=== PATIENT | female | born 1970 | race Two or more races ===

== ENCOUNTER 2020-07-29 10:20 | Emergency (ER) | payer MEDICARE, MEDICAID, SELFPAY ==
--- NOTE | 2020-07-29 10:32 | ED.ABDPAIN ---
HPI - Abdominal Pain General Chief Complaint: Abdominal Pain Time Seen by Provider: 07/29/20 10:32 Source: patient Mode of arrival: ambulatory Limitations: no limitations History of Present Illness MD elicited complaint: abdominal pain and flank pain Pertinent past history: kidney stones Onset (ago): day(s) (3) Pain Consistency: constant Location: R flank Severity: moderate Quality: stabbing Migration to: no migration Exacerbating factors: movement Relieving factors: nothing Associated symptoms: nausea, vomiting and other (urinary frequency) Related Data Previous Rx's Medication Instructions Recorded cyclobenzaprine 10 mg PO TID PRN #14 tab 07/29/20 ondansetron 4 mg PO Q8H PRN #20 tab 07/29/20 Allergies Allergy/AdvReac Type Severity Reaction Status Date / Time aspirin [ASA] Allergy Unknown HIVES Unverified 04/30/20 17:05 soybean [SOYBEAN] Allergy Unknown RASH Unverified 04/30/20 17:05 Aspirin Allergy Unknown hives Uncoded 02/23/12 00:00 aspirin Allergy Unknown hives Uncoded 01/16/12 00:00 Review of Systems Review of Systems Constitutional : No Fever, No Chills ENT/Mouth : No sore throat Eyes: No Eye Pain, No Swelling, No Redness Cardiovascular : No Chest Pain, No SOB Respiratory : No Cough, No Sputum, No Wheezing Gastrointestinal : positive Nausea, no Vomiting, No Diarrhea, positive abdominal pain Genitourinary : no Dysuria, positive urinary frequency, no Hematuria, positive Flank Pain, positive hesitancy Musculoskeletal : No joint pain, No Myalgias Skin : No Skin Lesions, No rash Neuro : No Weakness, No Numbness, No Headache Psych : No Anxiety/Panic, No Depression Heme/Lymph: No Bruising, No Lymphadenopathy Endocrine : No Polyuria, No Polydipsia All other systems reviewed and are negative Physical Exam Vital Signs: Vital Signs: Last Vital Signs Temp 97.6 F 07/29/20 11:24 Pulse 59 07/29/20 13:36 Resp 17 07/29/20 13:36 BP 131/78 07/29/20 13:36 Pulse Ox 96 07/29/20 13:36 Body Mass Index 39.4 Appearance: Alert. Oriented X3. No acute distress. Eyes: Pupils equal, round and reactive to light. ENT: Pharynx normal. Neck: Normal inspection. Neck supple. CVS: Normal heart rate and rhythm. Pulses normal. Respiratory: No respiratory distress. Breath sounds normal. Abdomen: Soft and nontender. Back: R CVA ttp moderate Skin: Skin warm and dry. Normal skin color. Normal skin turgor. Extremities: No lower extremity edema. No calf ttp Neuro: Oriented X 3. No motor deficit. No sensory deficit. Course Course Course Narrative: no acute findings, stable for DC MDM - Abdominal Pain MDM Narrative Medical decision making narrative: 49 yo female with 3 days of flank pain and urinary frequency will need labs, UA, CT scan for renal colic, IV morphine for pain Lab Data Result diagrams: 07/29/20 12:48 07/29/20 12:48 Labs: Lab Results 07/29/20 07/29/20 07/29/20 Range/Units 12:38 12:48 12:48 WBC 8.1 (4.8-10.8) X10*3/uL RBC 4.50 (4.20-5.50) X10*6/uL Hgb 13.8 (12.0-16.0) g/dl Hct 40.8 (37-47) % MCV 90.7 (80-98) fL MCH 30.7 (27.0-33.0) pg MCHC 33.8 (31.0-35.0) g/dl RDW 12.6 (11.0-16.0) % Plt Count 187 (160-400) X10*3/uL MPV 11.2 (9.4-12.3) fL Immature Gran % (Auto) 0.1 (0.0-0.4) % Neut % (Auto) 65.9 (45-73) % Lymph % (Auto) 24.8 (20-40) % Person % (Auto) 6.1 (2-11) % Eos % (Auto) 2.6 (0-4) % Baso % (Auto) 0.5 (0-2) % Lymph # (Auto) 2.0 (1.2-4.9) X10*3/uL Person # (Auto) 0.5 (0.1-1.2) X10*3/uL Eos # (Auto) 0.2 (0.0-0.4) X10*3/uL Baso # (Auto) 0.0 (0.0-0.2) X10*3/uL Abs Immat Gran (auto) 0.01 (0.00-0.03) X10*3/uL Absolute Neuts (auto) 5.3 (2.0-8.3) X10*3/uL Absolute Nucleated RBC 0.000 (0.0-0.012) X10*3/uL Nucleated RBC % (auto) 0.0 (0.0-0.2) /100WBC Hold Blue Top Sodium 139 (135-145) mmol/L Potassium 3.5 (3.3-5.1) mmol/l Chloride 99 (96-108) mmol/L Carbon Dioxide 31 H (22-29) mmol/L Anion Gap 13 (12-20) BUN 15 (9-16) mg/dL Creatinine 0.69 (0.5-1.4) mg/dL Estim Creat Clear Calc 113.5 Estimated GFR > 60 Random Glucose 105 (60-115) mg/dL Calcium 9.1 (8.4-10.2) mg/dL Magnesium 1.8 (1.6-2.6) mg/dL Total Bilirubin 0.3 (0.0-1.0) mg/dL Direct Bilirubin 0.2 (0.0-0.5) mg/dL AST 34 H (5-31) U/L ALT 26 (0-31) U/L Alkaline Phosphatase 88 (39-117) U/L Total Protein 6.6 (6.5-8.0) g/dL Albumin 3.8 (3.5-5.0) g/dL Lipase 32 (8-78) U/L Urine Color YELLOW Urine Appearance HAZY Urine pH 7.0 (5.0-8.0) Ur Specific [place] 1.020 (1.005-1.025) Urine Protein TRACE (NEG-TRACE) MG/DL Urine Glucose (UA) NEG (NEG) MG/DL Urine Ketones 5 (NEG) MG/DL Urine Blood NEG (NEG) Urine Nitrite NEG (NEG) Ur Leukocyte Esterase NEG (NEG) 07/29/20 Range/Units 12:48 WBC (4.8-10.8) X10*3/uL RBC (4.20-5.50) X10*6/uL Hgb (12.0-16.0) g/dl Hct (37-47) % MCV (80-98) fL MCH (27.0-33.0) pg MCHC (31.0-35.0) g/dl RDW (11.0-16.0) % Plt Count (160-400) X10*3/uL MPV (9.4-12.3) fL Immature Gran % (Auto) (0.0-0.4) % Neut % (Auto) (45-73) % Lymph % (Auto) (20-40) % Person % (Auto) (2-11) % Eos % (Auto) (0-4) % Baso % (Auto) (0-2) % Lymph # (Auto) (1.2-4.9) X10*3/uL Person # (Auto) (0.1-1.2) X10*3/uL Eos # (Auto) (0.0-0.4) X10*3/uL Baso # (Auto) (0.0-0.2) X10*3/uL Abs Immat Gran (auto) (0.00-0.03) X10*3/uL Absolute Neuts (auto) (2.0-8.3) X10*3/uL Absolute Nucleated RBC (0.0-0.012) X10*3/uL Nucleated RBC % (auto) (0.0-0.2) /100WBC Hold Blue Top SEE NOTE Sodium (135-145) mmol/L Potassium (3.3-5.1) mmol/l Chloride (96-108) mmol/L Carbon Dioxide (22-29) mmol/L Anion Gap (12-20) BUN (9-16) mg/dL Creatinine (0.5-1.4) mg/dL Estim Creat Clear Calc Estimated GFR Random Glucose (60-115) mg/dL Calcium (8.4-10.2) mg/dL Magnesium (1.6-2.6) mg/dL Total Bilirubin (0.0-1.0) mg/dL Direct Bilirubin (0.0-0.5) mg/dL AST (5-31) U/L ALT (0-31) U/L Alkaline Phosphatase (39-117) U/L Total Protein (6.5-8.0) g/dL Albumin (3.5-5.0) g/dL Lipase (8-78) U/L Urine Color Urine Appearance Urine pH (5.0-8.0) Ur Specific [place] (1.005-1.025) Urine Protein (NEG-TRACE) MG/DL Urine Glucose (UA) (NEG) MG/DL Urine Ketones (NEG) MG/DL Urine Blood (NEG) Urine Nitrite (NEG) Ur Leukocyte Esterase (NEG) Discharge Plan Discharge Clinical Impression: Flank pain Patient Disposition: Home, Self-Care Instructions: Flank Pain (ED) Additional Instructions: return to ED for any worsening symptoms or concerns Prescriptions: New cyclobenzaprine 10 mg tablet 10 mg PO TID PRN (Reason: muscle spasm) Qty: 14 RF: 0 ondansetron 4 mg tablet,disintegrating 4 mg PO Q8H PRN (Reason: nausea and vomiting) Qty: 20 RF: 0 Referrals: Physician,Unknown [Primary Care Provider] - 2 days (if not better) PMFSH Past Medical History Medical History (Updated 07/29/20 @ 13:45 by Gayla Reyna DO) Asthma Kidney stones Surgical History (Updated 07/29/20 @ 10:41 by Gayla Reyna DO) H/O gastric bypass Hx of cholecystectomy Social History Social History (Updated 07/29/20 @ 10:41 by Gayla Reyna DO) Alcohol intake: never Smoking Status: Never smoker Use of substances other than those prescribed or required for medical reasons: No Advance Directives: No Advance Directives Information Provided: Yes
--- NOTE | 2020-07-29 10:33 | CT_ITS ---
EXAMINATION: CT ABDOMEN AND PELVIS WITHOUT CONTRAST CLINICAL INFORMATION: Right flank pain COMPARISON: June 06, 2017 TECHNIQUE: Multidetector volumetric imaging was performed from the superior aspect of the liver through the pubic symphysis. Sagittal and coronal reformatted images were obtained on the technologist's workstation. This CT examination was performed using dose optimization techniques as appropriate, variously including the following: *Automated exposure control *Adjustment of mA and/or kV according to patient size (this includes techniques or standardized protocols for targeted exams where dose is matched to indication/reason for exam; i.e. extremities or head) *Use of iterative reconstruction technique DLP: 981 mGy-cm FINDINGS: LUNG BASES: There is some scarring about the medial aspect of the right lower lobe. No pleural or pericardial effusion. LIVER, GALLBLADDER, AND BILIARY TREE: The liver is normal in size, shape, and attenuation. No focal hepatic lesion or biliary ductal dilatation is present. Status post cholecystectomy. PANCREAS: Unremarkable. SPLEEN: Unremarkable. There is a capsular calcification noted. ADRENAL GLANDS: Unremarkable. KIDNEYS AND URETERS: The kidneys are normal in size, shape, and attenuation. No hydronephrosis, hydroureter, or calculi seen. No perinephric stranding. BLADDER: Unremarkable. GASTROINTESTINAL TRACT: No dilated loops of large or small bowel. No free air or free fluid. Status post previous surgery involving the distal esophagus and gastric fundus. No pericolonic inflammatory change. No evidence of acute diverticulitis. Appendix is visualized and appears unremarkable. ABDOMINAL WALL: There is a midline fat-containing supraumbilical hernia present. LYMPH NODES: No lymphadenopathy appreciated. VASCULAR: No significant calcified plaque identified. No abdominal aortic aneurysm. PELVIC VISCERA: Unremarkable. OSSEOUS STRUCTURES: No acute destructive bony lesions appreciated. CT/CT abdomen pelvis wo con IMPRESSION: No evidence of ileus or obstruction. No evidence of obstructive uropathy. Status post previous gastroesophageal surgery and cholecystectomy.
--- NOTE | 2020-07-29 11:00 | PC.NURSE ---
UPON PT ARRIVAL ED IN COMPUTER DOWNTIME, PLEASE SEE SCANNED DOCUMENTS FOR RELEVANT INFO.
[2020-07-29 11:24] VITALS: BP 151/90; PULSE 70; RESP 16; TEMP 36.4; O2SAT 98; BMI 39.4
[2020-07-29 12:00] VITALS: PULSE 80; RESP 18
[2020-07-29 12:49] VITALS: RESP 18
[2020-07-29] MEDS: ondansetron HCL 4 MG/2 ML VIAL IVPUSH (12:49)
[2020-07-29] MEDS: Morphine Sulfate 4 MG/ML CARTRIDGE IVPUSH (12:49)
[2020-07-29] MEDS: 0.9 % Sodium Chloride 1,000 ML 999 ML IVCONT (12:49)
[2020-07-29 12:58] LABS: MANUAL DIFF FLAG NO
[2020-07-29 13:04] LABS: Basophils Percent Auto 0.5 % (0-2); Eosinophils Absolute Auto 0.2 X10*3/uL (0.0-0.4); Eosinophils Percent Auto 2.6 % (0-4); Hematocrit 40.8 % (37-47); Hemoglobin 13.8 g/dl (12.0-16.0); Imm Gran Abs Auto 0.01 X10*3/uL (0.00-0.03); Imm Gran Pct Auto 0.1 % (0.0-0.4); Lymphocytes Percent Auto 24.8 % (20-40); Mean Corpuscular HGB Conc 33.8 g/dl (31.0-35.0); Mean Corpuscular Hemoglobin 30.7 pg (27.0-33.0); Mean Corpuscular Volume 90.7 fL (80-98); Mean Platelet Volume 11.2 fL (9.4-12.3); Monocytes Absolute Auto 0.5 X10*3/uL (0.1-1.2); Monocytes Percent Auto 6.1 % (2-11); Neutrophils Absolute Auto 5.3 X10*3/uL (2.0-8.3); Neutrophils Percent Auto 65.9 % (45-73); Platelet Count 187 X10*3/uL (160-400); Red Cell Distribution Width 12.6 % (11.0-16.0); White Blood Count 8.1 X10*3/uL (4.8-10.8)
[2020-07-29 13:06] LABS: Glucose Urine UA NEG (NEG); Leukocyte Esterase Urine NEG (NEG); Nitrite Urine NEG (NEG); Urine Blood NEG (NEG); Urine Ketones 5 MG/DL (NEG); Urine Protein TRACE MG/DL (NEG-TRACE)
[2020-07-29 13:09] LABS: Appearance Urine HAZY; Color Urine YELLOW
--- NOTE | 2020-07-29 13:34 | PC.NURSE ---
Local erythema noted after iv med administration. IV to left hand removed and new 22G IV placed to left forearm.
[2020-07-29 13:36] VITALS: BP 131/78; PULSE 59; RESP 17; O2SAT 96
[2020-07-29 13:42] LABS: Alanine Aminotransferase 26 U/L (0-31); Albumin Level 3.8 g/dL (3.5-5.0); Alkaline Phosphatase 88 U/L (39-117); Anion Gap 13 (12-20); Aspartate Amino Transferase 34 U/L (5-31); Bilirubin Direct 0.2 mg/dL (0.0-0.5); Bilirubin Total 0.3 mg/dL (0.0-1.0); Blood Urea Nitrogen 15 mg/dL (9-16); Calcium 9.1 mg/dL (8.4-10.2); Carbon Dioxide 31 mmol/L (22-29); Chloride 99 mmol/L (96-108); Creatinine Clr Calc Pharmacy 113.5; Estimated Glomerular Filt Rate > 60; Glucose Random 105 mg/dL (60-115); Lipase 32 U/L (8-78); Magnesium 1.8 mg/dL (1.6-2.6); Potassium 3.5 mmol/l (3.3-5.1); Sodium 139 mmol/L (135-145); Total Protein 6.6 g/dL (6.5-8.0)
== END 2020-07-29 14:46 | disposition home or self-care (01) ==
PROVIDERS: Emergency Provider Emergency Medicine
DX: R10.9 Unspecified abdominal pain (principal); Z87.442 Personal history of urinary calculi
CPT/HCPCS: 36415; 74176; 80048; 80076; 81003; 83690; 83735; 85025; 96361; 96374; 96375; 99284; J2270; J2405

== ENCOUNTER 2021-05-22 08:02 | Emergency (ER) | payer MEDICARE, MEDICAID, SELFPAY ==
[2021-05-22 08:04] VITALS: BP 136/90; PULSE 88; RESP 18; TEMP 37.4; O2SAT 96; BMI 40.7
[2021-05-22 09:09] LABS: IDNOW Serial# 9DD0AD1C; Strep A Nucleic Acid Negative (Negative)
[2021-05-22 09:14] LABS: COVID-19 Test Negative (Negative)
--- NOTE | 2021-05-22 09:40 | ED_ITS ---
HPI - URI/Sore Throat General Chief Complaint: Upper Respiratory Symptoms Stated Complaint: flu like symptoms Time Seen by Provider: 05/22/21 09:37 History of Present Illness HPI Narrative: Patient is a 50-year-old female presented with coughing congestion upper respiratory symptoms been ongoing for the last 2 days. Positive generalized malaise weakness. Patient had her coronavirus vaccine. Patient denies any history of travel. She is from home. Cough productive of some clearish sputum. Related Data Previous Rx's Medication Instructions Recorded cyclobenzaprine 10 mg tablet 10 mg PO TID PRN #14 tab 07/29/20 ondansetron 4 mg disintegrating 4 mg PO Q8H PRN #20 tab 07/29/20 tablet benzonatate 100 mg capsule 100 mg PO TID PRN 5 Days #20 cap 05/22/21 (Tessalon Perles) ibuprofen 400 mg tablet 400 mg PO Q6H PRN #20 tab 05/22/21 ondansetron HCl 4 mg tablet 4 mg PO Q8H PRN #10 tab 05/22/21 (Zofran) Allergies Allergy/AdvReac Type Severity Reaction Status Date / Time aspirin [ASA] Allergy Unknown HIVES Verified 05/22/21 08:11 soybean [SOYBEAN] Allergy Unknown RASH Verified 05/22/21 08:11 Review of Systems Review of Systems: Positive generalized malaise weakness fever chills coughing congestion upper respiratory symptoms. Decreased p.o. intake All systems reviewed otherwise negative [facility] Past Medical History Attestation statement: The following information was validated with the patient. Medical History Asthma HTN (hypertension) Kidney stones Surgical History H/O gastric bypass Hx of cholecystectomy Social History Social History (Updated 07/29/20 @ 10:41 by Gayla Reyna DO) Alcohol intake: never Smoked in Last 30 Days: No Use of substances other than those prescribed or required for medical reasons: No Advance Directives: No Patient : No Physical Exam Vital Signs: Vital Signs: Last Vital Signs Temp 99.4 F 05/22/21 08:04 Pulse 88 05/22/21 08:04 Resp 18 05/22/21 08:04 BP 136/90 H 05/22/21 08:04 Pulse Ox 96 05/22/21 08:04 Body Mass Index 40.7 MDM - URI/Sore Throat MDM Narrative Medical decision making narrative: Well-appearing no acute distress O2 sats 97% on room air. Patient is lungs are clear. Cover test is negative. Strep test is negative. Will discharge patient. Lab Data Labs: Lab Results 05/22/21 05/22/21 Range/Units 08:52 08:52 COVID-19 (LEE ANN) Negative (Negative) COVID-19 Clin Com See Note S. pyogenes GrpA RUBIN Negative (Negative) Discharge Plan Discharge Clinical Impression: Upper respiratory infection Patient Disposition: Home, Self-Care Instructions: Upper Respiratory Infection (ED) Prescriptions: New ondansetron HCl [Zofran] 4 mg tablet 4 mg PO Q8H PRN (Reason: nausea and vomiting) Qty: 10 RF: 0 benzonatate [Tessalon Perles] 100 mg capsule 100 mg PO TID PRN (Reason: cough) 5 Days Qty: 20 RF: 0 ibuprofen 400 mg tablet 400 mg PO Q6H PRN (Reason: pain) Qty: 20 RF: 0 No Action cyclobenzaprine 10 mg tablet 10 mg PO TID PRN (Reason: muscle spasm) Qty: 14 RF: 0 ondansetron 4 mg tablet,disintegrating 4 mg PO Q8H PRN (Reason: nausea and vomiting) Qty: 20 RF: 0 Referrals: Physician,Unknown J [Primary Care Provider] - 2 days Stand Alone Forms: Work/School Release
== END 2021-05-22 09:50 | disposition home or self-care (01) ==
PROVIDERS: Emergency Provider Emergency Medicine Emergency Medical Services
DX: J06.9 Acute upper respiratory infection, unspecified (principal); R05.9 Cough, unspecified; M79.10 Myalgia, unspecified site; Z20.822 Contact with and (suspected) exposure to COVID-19; Z79.899 Other long term (current) drug therapy
CPT/HCPCS: 36415; 87635; 87651; 99283; 99284

== ENCOUNTER 2021-05-31 16:02 | Emergency (ER) | payer MEDICARE, MEDICAID, SELFPAY ==
--- NOTE | ~2021-05-31 | XR_ITS ---
EXAMINATION: XR CHEST CLINICAL INFORMATION: Cough COMPARISON: 05/11/2018 TECHNIQUE: 2 views of the chest were obtained. FINDINGS: Lungs are clear. No focal consolidation or mass. Normal pulmonary vascularity. No pleural effusion or pneumothorax. Normal heart size. No acute osseous abnormality. XR/XR chest 2V IMPRESSION: No acute pulmonary disease. No significant change from prior study.
--- NOTE | ~2021-05-31 | CT_ITS ---
EXAMINATION: CT ABDOMEN AND PELVIS WITH CONTRAST CLINICAL INFORMATION: RUQ/flank pain, rule out pyelonephritis or prox kidney stone COMPARISON: CT abdomen pelvis 07/29/2020 TECHNIQUE: Multidetector volumetric images were obtained from the superior aspect of the liver through the pubic symphysis following administration 85 mL of Omnipaque 350 intravenous contrast. Sagittal and coronal reformatted images were obtained on the technologist's workstation. Oral contrast: No This CT examination was performed using dose optimization techniques as appropriate, variously including the following: *Automated exposure control *Adjustment of mA and/or kV according to patient size (this includes techniques or standardized protocols for targeted exams where dose is matched to indication/reason for exam; i.e. extremities or head) *Use of iterative reconstruction technique DLP: 720 mGy-cm FINDINGS: LUNG BASES: The visualized lung bases are unremarkable. LIVER, GALLBLADDER, AND BILIARY TREE: The liver is normal in size and shape. Attenuation is decreased suggesting hepatic steatosis. No focal hepatic lesion or biliary ductal dilatation is present. Status post cholecystectomy with clips in the gallbladder fossa. A single clip is present in Morison's pouch. PANCREAS: Unremarkable. SPLEEN: Unremarkable. ADRENAL GLANDS: Unremarkable. KIDNEYS AND URETERS: The kidneys are normal in size, shape, and attenuation. No hydronephrosis, hydroureter, or calculi seen. No perinephric stranding. BLADDER: Unremarkable. GASTROINTESTINAL TRACT: Again seen are postoperative changes involving the distal esophagus and gastric fundus. The small and large bowel are unremarkable. The appendix is unremarkable. ABDOMINAL WALL: There is diastases of the rectus muscles with a supraumbilical ventral hernia containing only fat. LYMPH NODES: Normal. VASCULAR: Unremarkable. PELVIC VISCERA: Status post hysterectomy. OSSEOUS STRUCTURES: Unremarkable. CT/CT abdomen pelvis w con IMPRESSION: Cause for the patient's right flank pain is not found. No CT evidence of pyelonephritis and no renal calculus disease is seen. Other incidental findings as described above, unchanged.
[2021-05-31 16:21] VITALS: BP 107/72; PULSE 73; RESP 18; TEMP 37; O2SAT 99; BMI 35.4
--- NOTE | 2021-05-31 16:21 | ED_ITS ---
HPI - General Adult General Chief complaint: General Medical <Lynne Land NP - Last Filed: 05/31/21 16:23> Stated complaint: abd pain, cough <Lynne Land NP - Last Filed: 05/31/21 16:23> Time Seen by Provider: 05/31/21 16:21 <Lynne Land NP - Last Filed: 05/31/21 16:23> Source: patient <Esther Grullon MD - Last Filed: 05/31/21 22:58> Mode of arrival: ambulatory <Esther Grullon MD - Last Filed: 05/31/21 22:58> History of Present Illness HPI narrative: 50-year-old female with presentation of ongoing cough for which she has previously been treated and does have history of asthma that she states is otherwise controlled at this time and states that she had onset of right upper quadrant discomfort associated with decreased appetite, nausea, vomiting, as well as diarrhea. The pain that she is experiencing the right upper quadrant is radiating into her back and she is status post cholecystectomy. Otherwise she denies any urinary symptoms. <Esther Grullon MD - Last Filed: 05/31/21 22:58> Related Data Home medications: Previous Rx's Medication Instructions Recorded cyclobenzaprine 10 mg tablet 10 mg PO TID PRN #14 tab 07/29/20 ondansetron 4 mg disintegrating 4 mg PO Q8H PRN #20 tab 07/29/20 tablet benzonatate 100 mg capsule 100 mg PO TID PRN 5 Days #20 cap 05/22/21 (Tesbakari Rand) ibuprofen 400 mg tablet 400 mg PO Q6H PRN #20 tab 05/22/21 ondansetron HCl 4 mg tablet 4 mg PO Q8H PRN #10 tab 05/22/21 (Zofran) omeprazole 40 mg capsule,delayed 40 mg PO DAILY 30 Days #30 cap 05/31/21 release <Lynne Land NP - Last Filed: 05/31/21 16:23> Allergies/adverse reactions: Allergies Allergy/AdvReac Type Severity Reaction Status Date / Time aspirin [ASA] Allergy Unknown HIVES Verified 05/22/21 08:11 soybean [SOYBEAN] Allergy Unknown RASH Verified 05/22/21 08:11 <Lynne Land NP - Last Filed: 05/31/21 16:23> Review of Systems Review of Systems: Pertinent positives and negatives As stated in HPI 10 point review of systems is otherwise negative. <Esther Grullon MD - Last Filed: 05/31/21 22:58> PMFSH Past Medical History Source: nursing notes reviewed <Esther Grullon MD - Last Filed: 05/31/21 22:58> Medical History: Medical History Asthma HTN (hypertension) Kidney stones <Lynne Land NP - Last Filed: 05/31/21 16:23> Surgical History: Surgical History H/O gastric bypass Hx of cholecystectomy <Lynne Land NP - Last Filed: 05/31/21 16:23> Social History Social History: Social History Alcohol intake: never Advance Directives: No Advance Directives Information Provided: No <Lynne Land NP - Last Filed: 05/31/21 16:23> Physical Exam Vital Signs: Vital Signs: Last Vital Signs Temp 98.6 F 05/31/21 16:21 Pulse 65 05/31/21 21:54 Resp 16 05/31/21 21:54 BP 125/65 05/31/21 21:54 Pulse Ox 100 05/31/21 21:54 Body Mass Index 35.4 <Lynne Land NP - Last Filed: 05/31/21 16:23> Vital Signs: Last Vital Signs Temp 98.6 F 05/31/21 16:21 Pulse 65 05/31/21 21:54 Resp 16 05/31/21 21:54 BP 125/65 05/31/21 21:54 Pulse Ox 100 05/31/21 21:54 Body Mass Index 35.4 VITAL SIGNS: Reviewed. GENERAL: Well developed, well nourished, in no acute distress. HEAD: Normocephalic/atraumatic EYES: PERRLA, EOMI OROPHARYNX: no oral lesions noted, posterior pharynx clear LUNGS: Normal breath sounds. No adventitious sounds or accessory muscle use. SpO2<99> CARDIOVASCULAR: Regular rate and rhythm without noted murmurs ABDOMEN: Soft, tenderness in right upper quadrant and along flank without rebound, non-distended with bowel sounds, no CVA tenderness SKIN: Inspection of the skin reveals no rashes NEUROLOGIC: Alert and oriented x 4. Strength and sensation to light touch were grossly intact x 4. <Esther Grullon MD - Last Filed: 05/31/21 22:58> Course Course Course Narrative: 1620-This is a rapid medical exam. 50 yo female here with complaints of heavy lifting last night. Woke with abdominal pain/back pain. No nausea, vomiting, diarrhea, urinary symptoms, fevers, chills, Chronic cough >1 week seeking covid test. Will check CXR, covid screen, labs, UA. Deferred additional HPI, ROS and PE to primary provider. <Lynne Land NP - Last Filed: 05/31/21 16:23> Reevaluation(s) Reevaluation #1: 50-year-old female with history and clinical presentation suggestive of gastroenteritis, renal colic, pyelonephritis. Review of all investigations negative for any acute findings and suspect that this may be a gastritis/GERD presentation. Discussed with the patient at bedside and she was otherwise discharged home in stable condition. <Esther Grullon MD - Last Filed: 05/31/21 22:58> Medical Decision Making Lab Data Result diagrams: : 05/31/21 19:50 05/31/21 19:50 <Lynne Land NP - Last Filed: 05/31/21 16:23> Labs: Lab Results 05/31/21 05/31/21 05/31/21 Range/Units 18:10 18:10 19:50 WBC 8.3 (4.8-10.8) X10*3/uL RBC 4.45 (4.20-5.50) X10*6/uL Hgb 13.7 (12.0-16.0) g/dl Hct 38.4 (37-47) % MCV 86.3 (80-98) fL MCH 30.8 (27.0-33.0) pg MCHC 35.7 H (31.0-35.0) g/dl RDW 12.4 (11.0-16.0) % Plt Count 248 D (160-400) X10*3/uL MPV 11.1 (9.4-12.3) fL Immature Gran % (Auto) 0.1 (0.0-0.4) % Neut % (Auto) 55.1 (45-73) % Lymph % (Auto) 32.5 (20-40) % [place] % (Auto) 6.1 (2-11) % Eos % (Auto) 5.5 H (0-4) % Baso % (Auto) 0.7 (0-2) % Lymph # (Auto) 2.7 (1.2-4.9) X10*3/uL [place] # (Auto) 0.5 (0.1-1.2) X10*3/uL Eos # (Auto) 0.5 H (0.0-0.4) X10*3/uL Baso # (Auto) 0.1 (0.0-0.2) X10*3/uL Abs Immat Gran (auto) 0.01 (0.00-0.03) X10*3/uL Absolute Neuts (auto) 4.6 (2.0-8.3) X10*3/uL Absolute Nucleated RBC 0.000 (0.0-0.012) X10*3/uL Nucleated RBC % (auto) 0.0 (0.0-0.2) /100WBC Sodium (135-145) mmol/L Potassium (3.3-5.1) mmol/L Chloride (96-108) mmol/L Carbon Dioxide (22-29) mmol/L Anion Gap (12-20) BUN (9-16) mg/dL Creatinine (0.5-1.4) mg/dL Estim Creat Clear Calc Estimated GFR POC Glucose (60-115) mg/dL Random Glucose (60-115) mg/dL Calcium (8.4-10.2) mg/dL Total Bilirubin (0.0-1.0) mg/dL Direct Bilirubin (0.0-0.5) mg/dL AST (5-31) U/L ALT (0-31) U/L Alkaline Phosphatase (39-117) U/L Total Protein (6.5-8.0) g/dL Albumin (3.5-5.0) g/dL Lipase (8-78) U/L Urine Color YELLOW Urine Appearance CLEAR Urine pH 6.5 (5.0-8.0) Ur Specific [place] 1.015 (1.005-1.025) Urine Protein NEG (NEG-TRACE) MG/DL Urine Glucose (UA) NEG (NEG) MG/DL Urine Ketones NEG (NEG) MG/DL Urine Blood NEG (NEG) Urine Nitrite NEG (NEG) Ur Leukocyte Esterase NEG (NEG) COVID-19 (LEE ANN) Negative (Negative) COVID-19 Clin Com See Note 05/31/21 05/31/21 Range/Units 19:50 19:53 WBC (4.8-10.8) X10*3/uL RBC (4.20-5.50) X10*6/uL Hgb (12.0-16.0) g/dl Hct (37-47) % MCV (80-98) fL MCH (27.0-33.0) pg MCHC (31.0-35.0) g/dl RDW (11.0-16.0) % Plt Count (160-400) X10*3/uL MPV (9.4-12.3) fL Immature Gran % (Auto) (0.0-0.4) % Neut % (Auto) (45-73) % Lymph % (Auto) (20-40) % [place] % (Auto) (2-11) % Eos % (Auto) (0-4) % Baso % (Auto) (0-2) % Lymph # (Auto) (1.2-4.9) X10*3/uL [place] # (Auto) (0.1-1.2) X10*3/uL Eos # (Auto) (0.0-0.4) X10*3/uL Baso # (Auto) (0.0-0.2) X10*3/uL Abs Immat Gran (auto) (0.00-0.03) X10*3/uL Absolute Neuts (auto) (2.0-8.3) X10*3/uL Absolute Nucleated RBC (0.0-0.012) X10*3/uL Nucleated RBC % (auto) (0.0-0.2) /100WBC Sodium 140 (135-145) mmol/L Potassium 3.2 L (3.3-5.1) mmol/L Chloride 102 (96-108) mmol/L Carbon Dioxide 29 (22-29) mmol/L Anion Gap 12 (12-20) BUN 17 H (9-16) mg/dL Creatinine 0.66 (0.5-1.4) mg/dL Estim Creat Clear Calc 106.6 Estimated GFR > 60 POC Glucose 144 H (60-115) mg/dL Random Glucose 147 H (60-115) mg/dL Calcium 10.3 H D (8.4-10.2) mg/dL Total Bilirubin 0.3 (0.0-1.0) mg/dL Direct Bilirubin 0.2 (0.0-0.5) mg/dL AST 37 H (5-31) U/L ALT 42 H (0-31) U/L Alkaline Phosphatase 124 H D (39-117) U/L Total Protein 7.3 (6.5-8.0) g/dL Albumin 4.4 (3.5-5.0) g/dL Lipase 25 (8-78) U/L Urine Color Urine Appearance Urine pH (5.0-8.0) Ur Specific [place] (1.005-1.025) Urine Protein (NEG-TRACE) MG/DL Urine Glucose (UA) (NEG) MG/DL Urine Ketones (NEG) MG/DL Urine Blood (NEG) Urine Nitrite (NEG) Ur Leukocyte Esterase (NEG) COVID-19 (LEE ANN) (Negative) COVID-19 Clin Com <Lynne Land, COMPLIANCE COORDINATOR - Last Filed: 05/31/21 16:23> Lab Results 05/31/21 05/31/21 05/31/21 Range/Units 18:10 18:10 19:50 WBC 8.3 (4.8-10.8) X10*3/uL RBC 4.45 (4.20-5.50) X10*6/uL Hgb 13.7 (12.0-16.0) g/dl Hct 38.4 (37-47) % MCV 86.3 (80-98) fL MCH 30.8 (27.0-33.0) pg MCHC 35.7 H (31.0-35.0) g/dl RDW 12.4 (11.0-16.0) % Plt Count 248 D (160-400) X10*3/uL MPV 11.1 (9.4-12.3) fL Immature Gran % (Auto) 0.1 (0.0-0.4) % Neut % (Auto) 55.1 (45-73) % Lymph % (Auto) 32.5 (20-40) % [place] % (Auto) 6.1 (2-11) % Eos % (Auto) 5.5 H (0-4) % Baso % (Auto) 0.7 (0-2) % Lymph # (Auto) 2.7 (1.2-4.9) X10*3/uL [place] # (Auto) 0.5 (0.1-1.2) X10*3/uL Eos # (Auto) 0.5 H (0.0-0.4) X10*3/uL Baso # (Auto) 0.1 (0.0-0.2) X10*3/uL Abs Immat Gran (auto) 0.01 (0.00-0.03) X10*3/uL Absolute Neuts (auto) 4.6 (2.0-8.3) X10*3/uL Absolute Nucleated RBC 0.000 (0.0-0.012) X10*3/uL Nucleated RBC % (auto) 0.0 (0.0-0.2) /100WBC Sodium (135-145) mmol/L Potassium (3.3-5.1) mmol/L Chloride (96-108) mmol/L Carbon Dioxide (22-29) mmol/L Anion Gap (12-20) BUN (9-16) mg/dL Creatinine (0.5-1.4) mg/dL Estim Creat Clear Calc Estimated GFR POC Glucose (60-115) mg/dL Random Glucose (60-115) mg/dL Calcium (8.4-10.2) mg/dL Total Bilirubin (0.0-1.0) mg/dL Direct Bilirubin (0.0-0.5) mg/dL AST (5-31) U/L ALT (0-31) U/L Alkaline Phosphatase (39-117) U/L Total Protein (6.5-8.0) g/dL Albumin (3.5-5.0) g/dL Lipase (8-78) U/L Urine Color YELLOW Urine Appearance CLEAR Urine pH 6.5 (5.0-8.0) Ur Specific [place] 1.015 (1.005-1.025) Urine Protein NEG (NEG-TRACE) MG/DL Urine Glucose (UA) NEG (NEG) MG/DL Urine Ketones NEG (NEG) MG/DL Urine Blood NEG (NEG) Urine Nitrite NEG (NEG) Ur Leukocyte Esterase NEG (NEG) COVID-19 (LEE ANN) Negative (Negative) COVID-19 Clin Com See Note 05/31/21 05/31/21 Range/Units 19:50 19:53 WBC (4.8-10.8) X10*3/uL RBC (4.20-5.50) X10*6/uL Hgb (12.0-16.0) g/dl Hct (37-47) % MCV (80-98) fL MCH (27.0-33.0) pg MCHC (31.0-35.0) g/dl RDW (11.0-16.0) % Plt Count (160-400) X10*3/uL MPV (9.4-12.3) fL Immature Gran % (Auto) (0.0-0.4) % Neut % (Auto) (45-73) % Lymph % (Auto) (20-40) % [place] % (Auto) (2-11) % Eos % (Auto) (0-4) % Baso % (Auto) (0-2) % Lymph # (Auto) (1.2-4.9) X10*3/uL [place] # (Auto) (0.1-1.2) X10*3/uL Eos # (Auto) (0.0-0.4) X10*3/uL Baso # (Auto) (0.0-0.2) X10*3/uL Abs Immat Gran (auto) (0.00-0.03) X10*3/uL Absolute Neuts (auto) (2.0-8.3) X10*3/uL Absolute Nucleated RBC (0.0-0.012) X10*3/uL Nucleated RBC % (auto) (0.0-0.2) /100WBC Sodium 140 (135-145) mmol/L Potassium 3.2 L (3.3-5.1) mmol/L Chloride 102 (96-108) mmol/L Carbon Dioxide 29 (22-29) mmol/L Anion Gap 12 (12-20) BUN 17 H (9-16) mg/dL Creatinine 0.66 (0.5-1.4) mg/dL Estim Creat Clear Calc 106.6 Estimated GFR > 60 POC Glucose 144 H (60-115) mg/dL Random Glucose 147 H (60-115) mg/dL Calcium 10.3 H D (8.4-10.2) mg/dL Total Bilirubin 0.3 (0.0-1.0) mg/dL Direct Bilirubin 0.2 (0.0-0.5) mg/dL AST 37 H (5-31) U/L ALT 42 H (0-31) U/L Alkaline Phosphatase 124 H D (39-117) U/L Total Protein 7.3 (6.5-8.0) g/dL Albumin 4.4 (3.5-5.0) g/dL Lipase 25 (8-78) U/L Urine Color Urine Appearance Urine pH (5.0-8.0) Ur Specific [place] (1.005-1.025) Urine Protein (NEG-TRACE) MG/DL Urine Glucose (UA) (NEG) MG/DL Urine Ketones (NEG) MG/DL Urine Blood (NEG) Urine Nitrite (NEG) Ur Leukocyte Esterase (NEG) COVID-19 (LEE ANN) (Negative) COVID-19 Clin Com <Esther Grullon MD - Last Filed: 05/31/21 22:58> Discharge Plan Discharge Clinical Impression: Gastritis, GERD (gastroesophageal reflux disease), Hepatic steatosis <Lynne Land NP - Last Filed: 05/31/21 16:23> Patient Disposition: Home, Self-Care <Lynne Land NP - Last Filed: 05/31/21 16:23> Instructions: Gastritis (ED), Diet for Stomach Ulcers and Gastritis (ED), Gastroesophageal Reflux in Infants (ED) <Lynne Land NP - Last Filed: 05/31/21 16:23> Additional Instructions: 1. Recommend limiting use of ibuprofen, Motrin, Aleve, Naprosyn. 2. Increase fluid hydration especially with water. Give been given a prescription to start on an antacid. 3. Follow-up with your primary care provider in the next 1-2 days for re- evaluation further outpatient management. Return to the ER for acute worsening of symptoms. <Lynne Land NP - Last Filed: 05/31/21 16:23> Prescriptions: New omeprazole 40 mg capsule,delayed release(DR/EC) 40 mg PO DAILY 30 Days Qty: 30 RF: 0 No Action cyclobenzaprine 10 mg tablet 10 mg PO TID PRN (Reason: muscle spasm) Qty: 14 RF: 0 ondansetron 4 mg tablet,disintegrating 4 mg PO Q8H PRN (Reason: nausea and vomiting) Qty: 20 RF: 0 ondansetron HCl [Zofran] 4 mg tablet 4 mg PO Q8H PRN (Reason: nausea and vomiting) Qty: 10 RF: 0 benzonatate [Tessalon Perles] 100 mg capsule 100 mg PO TID PRN (Reason: cough) 5 Days Qty: 20 RF: 0 ibuprofen 400 mg tablet 400 mg PO Q6H PRN (Reason: pain) Qty: 20 RF: 0 <Lynne Land NP - Last Filed: 05/31/21 16:23> Referrals: Kianna Serna MD [Primary Care Provider] - 2 days <Lynne Land NP - Last Filed: 05/31/21 16:23>
[2021-05-31 18:33] LABS: Appearance Urine CLEAR; Color Urine YELLOW; Glucose Urine UA NEG (NEG); Leukocyte Esterase Urine NEG (NEG); Nitrite Urine NEG (NEG); PH 6.5 (5.0-8.0); Specific Gravity - Urine 1.015 (1.005-1.025); Urine Blood NEG (NEG); Urine Ketones NEG (NEG); Urine Protein NEG (NEG-TRACE)
[2021-05-31 18:41] LABS: COVID-19 Test Negative (Negative); IDNOW Serial# 08D9AD1C
[2021-05-31 20:00] LABS: MANUAL DIFF FLAG NO
[2021-05-31 20:01] LABS: Glucose, Whole Blood 144 mg/dL (60-115)
[2021-05-31 20:01] LABS: Basophils Absolute Auto 0.1 X10*3/uL (0.0-0.2); Basophils Percent Auto 0.7 % (0-2); Eosinophils Absolute Auto 0.5 X10*3/uL (0.0-0.4); Eosinophils Percent Auto 5.5 % (0-4); Hematocrit 38.4 % (37-47); Hemoglobin 13.7 g/dl (12.0-16.0); Imm Gran Abs Auto 0.01 X10*3/uL (0.00-0.03); Imm Gran Pct Auto 0.1 % (0.0-0.4); Lymphocytes Absolute Auto 2.7 X10*3/uL (1.2-4.9); Lymphocytes Percent Auto 32.5 % (20-40); Mean Corpuscular HGB Conc 35.7 g/dl (31.0-35.0); Mean Corpuscular Hemoglobin 30.8 pg (27.0-33.0); Mean Corpuscular Volume 86.3 fL (80-98); Mean Platelet Volume 11.1 fL (9.4-12.3); Monocytes Absolute Auto 0.5 X10*3/uL (0.1-1.2); Monocytes Percent Auto 6.1 % (2-11); Neutrophils Absolute Auto 4.6 X10*3/uL (2.0-8.3); Neutrophils Percent Auto 55.1 % (45-73); Platelet Count 248 X10*3/uL (160-400); Red Blood Count 4.45 X10*6/uL (4.20-5.50); Red Cell Distribution Width 12.4 % (11.0-16.0); White Blood Count 8.3 X10*3/uL (4.8-10.8)
[2021-05-31 20:18] LABS: Alanine Aminotransferase 42 U/L (0-31); Albumin Level 4.4 g/dL (3.5-5.0); Alkaline Phosphatase 124 U/L (39-117); Anion Gap 12 (12-20); Aspartate Amino Transferase 37 U/L (5-31); Bilirubin Direct 0.2 mg/dL (0.0-0.5); Bilirubin Total 0.3 mg/dL (0.0-1.0); Blood Urea Nitrogen 17 mg/dL (9-16); Calcium 10.3 mg/dL (8.4-10.2); Carbon Dioxide 29 mmol/L (22-29); Chloride 102 mmol/L (96-108); Creatinine Clr Calc Pharmacy 106.6; Estimated Glomerular Filt Rate > 60; Glucose Random 147 mg/dL (60-115); Potassium 3.2 mmol/L (3.3-5.1); Sodium 140 mmol/L (135-145); Total Protein 7.3 g/dL (6.5-8.0)
[2021-05-31] MEDS: 0.9 % Sodium Chloride 1,000 ML 999 ML IV (21:52)
[2021-05-31 21:54] VITALS: BP 125/65; PULSE 65; RESP 16; O2SAT 100
[2021-05-31 22:07] LABS: Lipase 25 U/L (8-78)
[2021-05-31] MEDS: iohexoL 350 MG/ML 100 ML INFUS..BTL IV (22:13)
[2021-05-31] MEDS: Magnesium Hydrox/Alum Hydrox 30 ML ORAL.SUSP PO (23:06)
[2021-05-31] MEDS: Lidocaine HCl Viscous 2 % 15 ML SOLUTION 10 ML MUCOUS MEM (23:06)
[2021-05-31] MEDS: Lidocaine 4 % Patch ADH..PATCH 1 PATCH TRANSDERMA (23:19)
== END 2021-05-31 23:25 | disposition home or self-care (01) ==
PROVIDERS: Nurse Practitioner Family; Emergency Provider Student in an Organized Health Care Education/Training Program; PCP Internal Medicine
DX: R05.9 Cough, unspecified (principal); R10.11 Right upper quadrant pain; K29.00 Acute gastritis without bleeding; K21.9 Gastro-esophageal reflux disease without esophagitis; K76.0 Fatty (change of) liver, not elsewhere classified; Z20.822 Contact with and (suspected) exposure to COVID-19; Z79.899 Other long term (current) drug therapy
CPT/HCPCS: 36415; 71046; 74177; 80048; 80076; 81003; 82947; 83690; 85025; 87635; 96361; 96374; 99284; Q9967

== ENCOUNTER 2021-07-16 09:02 | Emergency (ER) | payer MEDICARE, MEDICAID, SELFPAY ==
--- NOTE | ~2021-07-16 | XR_ITS ---
EXAMINATION: XR CHEST CLINICAL INFORMATION: Cough and fever COMPARISON: None TECHNIQUE: 2 views of the chest were obtained. FINDINGS: No significant abnormality is noted involving the heart, lungs, mediastinum, bony thorax or soft tissues. XR/XR chest 2V IMPRESSION: Unremarkable chest examination.
[2021-07-16 09:24] VITALS: BP 133/83; PULSE 85; RESP 19; TEMP 36.6; O2SAT 99; BMI 38.9
--- NOTE | 2021-07-16 09:49 | ED_ITS ---
HPI - General Adult General Chief complaint: General Medical Stated complaint: nausea headache sore throat cough Time Seen by Provider: 07/16/21 09:49 Source: patient Mode of arrival: ambulatory Limitations: no limitations History of Present Illness HPI narrative: patient sick for 2 days with fever and cough. Onset (ago): day(s) Severity: mild Associated symptoms: cough, fever/chills, malaise and nausea/vomiting Related Data Previous Rx's Medication Instructions Recorded cyclobenzaprine 10 mg tablet 10 mg PO TID PRN #14 tab 07/29/20 ondansetron 4 mg disintegrating 4 mg PO Q8H PRN #20 tab 07/29/20 tablet benzonatate 100 mg capsule 100 mg PO TID PRN 5 Days #20 cap 05/22/21 (Tessalon Perles) ibuprofen 400 mg tablet 400 mg PO Q6H PRN #20 tab 05/22/21 ondansetron HCl 4 mg tablet 4 mg PO Q8H PRN #10 tab 05/22/21 (Zofran) omeprazole 40 mg capsule,delayed 40 mg PO DAILY 30 Days #30 cap 05/31/21 release [id number] 2.5 20 ml PO Q4H PRN #118 ml 07/16/21 mg-5 mg-50 mg/5 mL oral liquid (Robitussin Cough and Cold CF) Allergies Allergy/AdvReac Type Severity Reaction Status Date / Time aspirin [ASA] Allergy Unknown HIVES Verified 05/22/21 08:11 soybean [SOYBEAN] Allergy Unknown RASH Verified 05/22/21 08:11 Review of Systems Constitutional: Constitutional: Reports no additional constitutional complaints Eyes: Eyes: Reports no additional eye complaints ENT: Denies dizziness Cardiovascular: Cardiovascular: Reports no additional cardiovascular complaints Respiratory: Respiratory: Reports as per HPI Gastrointestinal: Gastrointestinal: Reports no additional gastrointestinal complaints Genitourinary: Genitourinary: Reports no additional female genitourinary complaints Musculoskeletal: Musculoskeletal: Reports no additional musculoskeletal complaints Integumentary/Breasts: Skin/Breast: Denies rash Neurologic: Reports system reviewed and no additional complaints, except as documented, Denies dizziness and Denies Sensory deficit (Neuro) Psychiatric: Psychiatric: Denies anxiety [facility] Past Medical History Medical History Asthma HTN (hypertension) Kidney stones Surgical History H/O gastric bypass Hx of cholecystectomy Social History Social History Alcohol intake: former Patient Tobacco Use Status: Never used Tobacco Use of substances other than those prescribed or required for medical reasons: No Advance Directives: Yes Advance Directives Information Provided: Yes Advance Directives on File: No Patient : No Physical Exam Vital Signs: Vital Signs: Last Vital Signs Temp 97.6 F 07/16/21 11:54 Pulse 73 07/16/21 11:54 Resp 14 07/16/21 11:54 BP 114/73 07/16/21 11:54 Pulse Ox 99 07/16/21 11:54 BMI result Body Mass Index 38.9 Const: Other: coughing continually Nutritional Appearance: obese Orientation/consciousness: oriented to person and patient oriented x3 Limitations: no limitations HENMT: Head: Yes normal to inspection Ears: external ears normal General nose exam: Normal external nose present Mouth: Normal oral and palatal mucosa present and oropharynx normal Throat: Yes posterior oropharynx normal Eyes: General: appearance normal, both eyes and all related structures Neck: Other: supple Neck: Yes normal visual inspection Chest: Chest palpation & inspection: normal inspection of the chest Resp: Auscultation: clear to auscultation bilaterally Cardio: Jugular venous distension: no JVD Rate: regular rate Rhythm: regular rhythm Heart sounds: S1 normal heart sound present and S2 normal heart sound present GI: Inspection: Yes normal to inspection Palpation (GI): Soft to palpation, nontender and No hepatosplenomegaly present Auscultation: normal bowel sounds : General: Yes no CVA tenderness Back/Spine/Pelvis: Back: no CVA tenderness Skin: General skin exam: no rashes or lesions noted Neuro: General: oriented to person and patient oriented x3 Cranial nerves: Yes CN's II-XII intact bilaterally Motor exam (neuro): 5/5 motor strength present throughout Sensory Exam: No Sensory deficit (Neuro) Extrem: General: Yes normal to inspection Psych: Appearance: grossly normal Course Reevaluation(s) Reevaluation #1: Patient with negative respiratory panel and normal CXR Time: 12:22 Medical Decision Making Lab Data Labs: Lab Results 07/16/21 07/16/21 Range/Units 09:23 10:06 POC Glucose 191 H (60-115) mg/dL Influenza Type A (PCR) NEGATIVE (Negative) Influenza Type B (PCR) NEGATIVE (Negative) RSV RNA Qual (PCR) NEGATIVE (Negative) SARS-CoV-2 RNA (RT-PCR) NEGATIVE (Negative) Imaging Data Chest x-ray: Attestation: I personally reviewed and interpreted this imaging study as follows: My impression: no infiltrate Discharge Plan Discharge Clinical Impression: Upper respiratory infection Qualifiers: URI type: unspecified URI Qualified Code(s): J06.9 - Acute upper respiratory infection, unspecified Patient Disposition: Home, Self-Care Instructions: Upper Respiratory Infection (ED) Prescriptions: New Robitussin Cough and Cold CF 2.5-5-50 mg/5 mL liquid 20 ml PO Q4H PRN (Reason: cough) Qty: 118 RF: 0 No Action cyclobenzaprine 10 mg tablet 10 mg PO TID PRN (Reason: muscle spasm) Qty: 14 RF: 0 ondansetron 4 mg tablet,disintegrating 4 mg PO Q8H PRN (Reason: nausea and vomiting) Qty: 20 RF: 0 omeprazole 40 mg capsule,delayed release(DR/EC) 40 mg PO DAILY 30 Days Qty: 30 RF: 0 ondansetron HCl [Zofran] 4 mg tablet 4 mg PO Q8H PRN (Reason: nausea and vomiting) Qty: 10 RF: 0 benzonatate [Tessalon Perles] 100 mg capsule 100 mg PO TID PRN (Reason: cough) 5 Days Qty: 20 RF: 0 ibuprofen 400 mg tablet 400 mg PO Q6H PRN (Reason: pain) Qty: 20 RF: 0 Referrals: Physician,Unknown J [Primary Care Provider] - 1 week
[2021-07-16] MEDS: Ketorolac Tromethamine 60 MG/2 ML VIAL IM (10:07)
[2021-07-16] MEDS: guaiFENesin 200 MG/10 ML 10 ML LIQUID PO (10:07)
[2021-07-16 10:14] LABS: Glucose, Whole Blood 191 mg/dL (60-115)
[2021-07-16 11:25] LABS: Influenza A PCR NEGATIVE (Negative); Influenza B PCR NEGATIVE (Negative); Resp Syncy Virus RNA Qual PCR NEGATIVE (Negative); SARS COV2 PCR INHOUSE NEGATIVE (Negative)
[2021-07-16 11:54] VITALS: BP 114/73; PULSE 73; RESP 14; TEMP 36.4; O2SAT 99
[2021-07-16 13:05] VITALS: BP 126/77; PULSE 72; RESP 15; TEMP 36.4; O2SAT 99
== END 2021-07-16 13:40 | disposition home or self-care (01) ==
PROVIDERS: Emergency Provider Emergency Medicine
DX: J06.9 Acute upper respiratory infection, unspecified (principal); I10 Essential (primary) hypertension; Z20.822 Contact with and (suspected) exposure to COVID-19
CPT/HCPCS: 0241U; 36415; 71046; 82947; 96372; 99284; J1885

== ENCOUNTER 2021-12-31 06:37 | Emergency (ER) | payer MEDICARE, MEDICAID, SELFPAY ==
[2021-12-31 07:20] VITALS: BP 120/78; PULSE 61; RESP 18; TEMP 36.1; O2SAT 99; BMI 35.4
[2021-12-31 07:44] LABS: Influenza A Negative (Negative); Influenza B2 Negative (Negative)
[2021-12-31 07:45] LABS: COVID-19 Test Negative (Negative); IDNOW Serial# 16C4AD1C
--- NOTE | 2021-12-31 08:07 | ED.GENADULT ---
HPI - General Adult General Chief complaint: General Medical Stated complaint: flu-like symptoms, wheeze, chest pain x3 days Time Seen by Provider: 12/31/21 08:07 Source: patient Mode of arrival: ambulatory Limitations: no limitations History of Present Illness HPI narrative: Patient is a 51 year old female presenting to the emergency department today with low back pain and feeling generally unwell. Patient states that she fell backwards awhile ago and has been having low back pain ever since. Additionally, she states she has felt generally unwell over the last few days after a coworker tested positive for COVID-19. Patient denies any dizziness, lightheadedness, abdominal pain, nausea, vomiting, fever, blurry vision, double vision, loss of vision, chest pain, difficulty breathing, shortness of breath, night sweats, pain with urination, increased urinary frequency, increased urinary urgency, blood in her urine or stool, syncope or a near syncopal episode, recent trauma or falls, bowel incontinence, bladder incontinence, bowel retention, bladder retention, or any other complaints at this time. Onset (ago): day(s) Location: back Severity: mild Severity scale (1-10): 3 Quality: dull Pain Consistency: constant Relieving factors: none Exacerbating factors: none Associated symptoms: cough Treatments prior to arrival: none Related Data Previous Rx's Medication Instructions Recorded cyclobenzaprine 10 mg tablet 10 mg PO TID PRN #14 tab 07/29/20 ondansetron 4 mg disintegrating 4 mg PO Q8H PRN #20 tab 07/29/20 tablet benzonatate 100 mg capsule 100 mg PO TID PRN 5 Days #20 cap 05/22/21 (Tessalon Perles) ibuprofen 400 mg tablet 400 mg PO Q6H PRN #20 tab 05/22/21 ondansetron HCl 4 mg tablet 4 mg PO Q8H PRN #10 tab 05/22/21 (Zofran) omeprazole 40 mg capsule,delayed 40 mg PO DAILY 30 Days #30 cap 05/31/21 release naproxen 500 mg tablet (Naprosyn) 500 mg PO BID #20 tab 07/16/21 [id number] 2.5 20 ml PO Q4H PRN #118 ml 07/16/21 mg-5 mg-50 mg/5 mL oral liquid (Robitussin Cough and Cold CF) cyclobenzaprine 10 mg tablet 10 mg PO TID PRN 7 Days #21 tab 12/31/21 Allergies Allergy/AdvReac Type Severity Reaction Status Date / Time aspirin [ASA] Allergy Unknown HIVES Verified 12/31/21 07:24 soybean [SOYBEAN] Allergy Unknown RASH Verified 12/31/21 07:24 Review of Systems Constitutional: Constitutional: Reports no additional constitutional complaints, Reports body ache(s), Reports chills, Denies fever(s) and Denies night sweats Eyes: Eyes: Reports no additional eye complaints, Denies blurry vision, Denies change in vision, Denies diplopia, Denies eye discharge, Denies loss of vision and Denies eye pain ENT: Denies dizziness Cardiovascular: Cardiovascular: Reports no additional cardiovascular complaints, Denies chest pain, Denies lightheadedness, Denies Loss of Consciousness and Denies dyspnea Respiratory: Respiratory: Reports no additional respiratory complaints, Reports cough and Denies dyspnea Gastrointestinal: Gastrointestinal: Reports no additional gastrointestinal complaints, Denies abdominal pain, Denies melena, Denies hematochezia, Denies change in bowel habits and Denies change in stool character Genitourinary: Genitourinary: Denies hematuria, Denies urinary frequency, Denies dysuria, Denies urinary incontinence, Denies urinary hesitancy and Denies urinary urgency Musculoskeletal: Musculoskeletal: Reports no additional musculoskeletal complaints, Denies numbness and Denies tingling Neurologic: Denies dizziness, Denies loss of vision, Denies numbness and Denies tingling Psychiatric: Psychiatric: Reports no additional psychiatric complaints Endocrine: Endocrine: Reports no additional endocrine complaints Hematologic/Lymphatic: Hematologic/Lymphatic: Reports no additional hematologic/lymphatic complaints Allergic/Immunologic: Allergic/Immunologic: Reports no additional allergic/immunologic complaints [facility] Past Medical History Attestation statement: The following information was validated with the patient. Source: old records reviewed Medical History Asthma HTN (hypertension) Kidney stones Surgical History H/O gastric bypass Hx of cholecystectomy Social History Social History Alcohol intake: former Patient Tobacco Use Status: Never used Tobacco Advance Directives: No Advance Directives Information Provided: No Patient : No Physical Exam ED Vital Signs: Vital Signs - 24 hr 12/31/21 07:20 Temperature 97 F Pulse Rate 61 Respiratory Rate 18 Blood Pressure 120/78 Pulse Oximetry 99 BMI result Body Mass Index 35.4 Const General: cooperative, no acute distress, alert and awake Nutritional Appearance: well nourished Orientation/consciousness: patient oriented x3 Limitations: no limitations HENMT Head: Yes normal to inspection and Yes atraumatic Ears: hearing grossly normal bilaterally and external ears normal General nose exam: Normal external nose present, no nasal discharge noted and no epistaxis Face and sinus: Yes normal facial exam, No abrasion and No laceration Mouth: Normal oral and palatal mucosa present, no drooling and no muffled voice Eyes General: appearance normal, both eyes and all related structures Periorbital: periorbital findings normal Eyelids: Yes eyelids normal Conjunctivae: conjunctivae normal Pupils: Equal, round and reactive pupils present EOM: EOMs intact bilaterally Neck Neck: Yes normal visual inspection, Yes full ROM and Yes no lymphadenopathy Chest Chest palpation & inspection: normal inspection of the chest Resp Effort & Inspection: normal respiratory effort and able to speak in complete sentences Auscultation: clear to auscultation bilaterally Cardio Rate: regular rate Rhythm: regular rhythm GI Inspection: Yes normal to inspection General: Yes no CVA tenderness Back/Spine/Pelvis Back: no CVA tenderness Cervical Spine: normal cervical lordosis and cervical ROM normal Thoracic/Lumbar Spine: thoracic and lumbar spine normal to inspection and thoraco-lumbar ROM normal Pelvis: no pain with anterior-posterior compression Neuro General: patient oriented x3 and moves all extremities Cranial nerves: Yes Equal, round and reactive pupils present Cognition (Neuro): normal cognition Motor exam (neuro): 5/5 motor strength present throughout Sensory Exam: Normal double simultaneous stimulation for sensation Coordination: [id number] test normal Extrem General: Yes normal to inspection, Yes full ROM and Yes capillary refill normal Psych Appearance: grossly normal Mental Status: mental status grossly normal Affect: normal affect Attitude: cooperative Thought process: Normal thought process present Thought content: Normal thought content present Insight: Good insight present (Psych) Medical Decision Making MDM Narrative Medical decision making narrative: Patient is a 51 year old female presenting to the emergency department today with low back pain and feeling unwell. Patient's physical exam was unremarkable. Patient's neurological examination was normal. Patient had intact ROM, circulation, strength, and sensation to the bilateral lower extremities. Patient's rapid COVID-19 and influenza tests were negative. I explained my physical exam findings as well as all test results to the patient. I answered all questions asked by the patient. Patient received PO Flexeril and IM Toradol which she stated helped her symptoms significantly. I explained to the patient that she is likely experiencing a viral illness on top of a minor back injury. I stressed the importance of the patient taking her medication as prescribed. I stressed the importance of the patient following up with her primary care provider. I stressed the importance of the patient returning to the emergency department immediately if her symptoms were to worsen or if she were to develop any dizziness, shortness of breath, difficulty breathing, chest pain, blurry vision, loss of vision, nausea, vomiting, abdominal pain, fever, chills, back pain, or any other complaints. Patient verbalized agreement and understanding with this treatment plan and discharge. Differential Diagnosis Differential Diagnosis: Viral illness, back pain Medical Records Medical records reviewed: Yes I reviewed the patient's medical records. Lab Data Lab results reviewed: Yes I reviewed the patient's lab results. Labs: Lab Results 12/31/21 12/31/21 Range/Units 07:26 07:26 COVID-19 (LEE ANN) Negative (Negative) COVID-19 Clin Com See Note Influenza Type A (RUBIN) Negative (Negative) Influenza Type B (RUBIN) Negative (Negative) Influenza A & B Note See Note Discharge Plan Discharge Clinical Impression: Low back pain, Viral illness Patient Disposition: Home, Self-Care Instructions: Viral Syndrome (ED) Additional Instructions: Follow up with your primary care provider. Return to the emergency department immediately if your symptoms worsen or if you develop any dizziness, shortness of breath, difficulty breathing, chest pain, blurry vision, loss of vision, nausea, vomiting, abdominal pain, fever, chills, back pain, or any other complaints. Prescriptions: New cyclobenzaprine 10 mg tablet 10 mg PO TID PRN (Reason: muscle spasm) 7 Days Qty: 21 0RF No Action cyclobenzaprine 10 mg tablet 10 mg PO TID PRN (Reason: muscle spasm) Qty: 14 0RF ondansetron 4 mg tablet,disintegrating 4 mg PO Q8H PRN (Reason: nausea and vomiting) Qty: 20 0RF omeprazole 40 mg capsule,delayed release(DR/EC) 40 mg PO DAILY 30 Days Qty: 30 0RF Robitussin Cough and Cold CF 2.5-5-50 mg/5 mL liquid 20 ml PO Q4H PRN (Reason: cough) Qty: 118 0RF naproxen [Naprosyn] 500 mg tablet 500 mg PO BID Qty: 20 0RF ondansetron HCl [Zofran] 4 mg tablet 4 mg PO Q8H PRN (Reason: nausea and vomiting) Qty: 10 0RF benzonatate [Tessalon Perles] 100 mg capsule 100 mg PO TID PRN (Reason: cough) 5 Days Qty: 20 0RF ibuprofen 400 mg tablet 400 mg PO Q6H PRN (Reason: pain) Qty: 20 0RF Referrals: [facility] [place] Family Medicine [Provider Group] [facility] [Provider Group] [facility] [place] [facility] [Provider Group] Stand Alone Forms: Work/School Release Interventions: ED Discharge Assessment Last Done: 12/31/21 08:52 Discharge Date/Time: 12/31/21 08:54 Print Language: Estonian
[2021-12-31] MEDS: Cyclobenzaprine HCl 10 MG TABLET PO (08:34)
[2021-12-31] MEDS: Ketorolac Tromethamine 15 MG/ML VIAL IM (08:35)
== END 2021-12-31 08:54 | disposition home or self-care (01) ==
PROVIDERS: Emergency Provider Emergency Medicine Emergency Medical Services
DX: B34.9 Viral infection, unspecified (principal); M54.50 Low back pain, unspecified; I10 Essential (primary) hypertension; J45.909 Unspecified asthma, uncomplicated; Z20.822 Contact with and (suspected) exposure to COVID-19
CPT/HCPCS: 87502; 87635; 96372; 99282; 99284; J1885

== ENCOUNTER 2022-02-01 09:54 | Emergency (ER) | payer MEDICARE, MEDICAID, SELFPAY ==
--- NOTE | ~2022-02-01 | XR_ITS ---
EXAMINATION: XR CHEST CLINICAL INFORMATION: Cough. COMPARISON: 07/16/2021 chest radiographs. TECHNIQUE: 2 views of the chest were obtained. FINDINGS: No significant abnormality is noted involving the heart, lungs, mediastinum, bony thorax or soft tissues. XR/XR chest 2V IMPRESSION: No acute cardiopulmonary process.
[2022-02-01 09:59] VITALS: BP 172/87; PULSE 61; RESP 18; TEMP 37; O2SAT 98; BMI 42.0
--- NOTE | 2022-02-01 10:25 | ED.GENADULT ---
HPI - General Adult General Chief complaint: General Medical Stated complaint: CHILLS, RIB PAIN Time Seen by Provider: 02/01/22 10:21 Source: patient Mode of arrival: ambulatory Limitations: no limitations History of Present Illness HPI narrative: 51-year-old female with a history of asthma,HTN here with reports of 5 days of nonproductive cough, body aches, chest discomfort with coughing, shortness of breath with wheezing, headache. No vomiting, diarrhea, abdominal pain, fever Patient has had four COVID vaccinations Related Data Previous Rx's Medication Instructions Recorded cyclobenzaprine 10 mg tablet 10 mg PO TID PRN muscle spasm #14 07/29/20 tabs ondansetron 4 mg disintegrating 4 mg PO Q8H PRN nausea and 07/29/20 tablet vomiting #20 tabs benzonatate 100 mg capsule 100 mg PO TID PRN cough 5 days #20 05/22/21 (Tesbakari Rand) caps ibuprofen 400 mg tablet 400 mg PO Q6H PRN pain #20 tabs 05/22/21 ondansetron HCl 4 mg tablet 4 mg PO Q8H PRN nausea and 05/22/21 (Zofran) vomiting #10 tabs omeprazole 40 mg capsule,delayed 40 mg PO DAILY 30 days #30 caps 05/31/21 release naproxen 500 mg tablet (Naprosyn) 500 mg PO BID #20 tabs 07/16/21 [id number]-[id number] 2.5 20 ml PO Q4H PRN cough #118 mL 07/16/21 mg-5 mg-50 mg/5 mL oral liquid (Robitussin Cough and Cold CF) cyclobenzaprine 10 mg tablet 10 mg PO TID PRN muscle spasm 7 12/31/21 days #21 tabs azithromycin 250 mg tablet 250 mg PO DAILY 6 days #6 tabs 02/01/22 benzonatate 200 mg capsule 200 mg PO TID PRN cough #20 caps 02/01/22 prednisone 20 mg tablet 40 mg PO DAILY #10 tabs 02/01/22 Allergies Allergy/AdvReac Type Severity Reaction Status Date / Time aspirin [ASA] Allergy Unknown HIVES Verified 12/31/21 07:24 soybean [SOYBEAN] Allergy Unknown RASH Verified 12/31/21 07:24 Review of Systems Review of Systems: Yes all other systems are reviewed and are negative Constitutional: Constitutional: Reports no additional constitutional complaints, Reports body ache(s), Denies chills, Denies fever(s), Reports headache(s) and Denies weakness Eyes: Eyes: Reports no additional eye complaints and Denies change in vision ENT: Reports system reviewed and no additional complaints, except as documented, Denies dizziness, Reports headache(s), Denies nasal congestion, Denies nasal discharge and Denies neck pain Cardiovascular: Cardiovascular: Reports no additional cardiovascular complaints, Reports chest pain, Denies leg edema and Reports dyspnea Respiratory: Respiratory: Reports no additional respiratory complaints, Reports cough and Reports dyspnea Gastrointestinal: Gastrointestinal: Reports no additional gastrointestinal complaints, Denies abdominal pain, Denies diarrhea, Denies nausea and Denies vomiting Genitourinary: Genitourinary: Reports no additional female genitourinary complaints and Denies urinary incontinence Musculoskeletal: Musculoskeletal: Reports no additional musculoskeletal complaints, Denies back pain, Denies arthralgias, Denies joint swelling, Denies neck pain, Denies numbness and Denies tingling Integumentary/Breasts: Skin/Breast: Reports system reviewed and no additional complaints, except as docu and Denies rash Neurologic: Reports system reviewed and no additional complaints, except as documented, Denies dizziness, Reports headache(s), Denies numbness, Denies tingling and Denies weakness PMFSH Past Medical History Attestation statement: The following information was validated with the patient. Source: old records reviewed and nursing notes reviewed Medical History Asthma HTN (hypertension) Kidney stones Surgical History H/O gastric bypass Hx of cholecystectomy Social History Social History Alcohol intake: former Patient Tobacco Use Status: Never used Tobacco Advance Directives: Yes Advance Directives Information Provided: Yes Advance Directives on File: No Physical Exam ED Vital Signs: Vital Signs - 24 hr 02/01/22 09:59 02/01/22 12:07 Temperature 98.6 F Pulse Rate 61 62 Respiratory Rate 18 16 Blood Pressure 172/87 H 145/76 H Pulse Oximetry 98 98 Oxygen Delivery Method Room Air Room Air BMI result Body Mass Index 42.0 Const General: cooperative, no acute distress, alert and awake Nutritional Appearance: well nourished Orientation/consciousness: patient oriented x3 Limitations: no limitations HENMT Head: Yes normal to inspection and Yes atraumatic Ears: hearing grossly normal bilaterally, external ears normal and TM's normal bilaterally General nose exam: Normal external nose present, no nasal discharge noted and no epistaxis Face and sinus: Yes normal facial exam, No abrasion and No laceration Mouth: Normal oral and palatal mucosa present, no drooling and no muffled voice Throat: Yes posterior oropharynx normal, Yes tonsils normal and Yes uvula midline Eyes General: appearance normal, both eyes and all related structures Periorbital: periorbital findings normal Eyelids: Yes eyelids normal Conjunctivae: conjunctivae normal Pupils: Equal, round and reactive pupils present EOM: EOMs intact bilaterally Neck Neck: Yes normal visual inspection, Yes full ROM, Yes no lymphadenopathy and Yes no meningeal signs Chest Chest palpation & inspection: normal inspection of the chest Resp Effort & Inspection: normal respiratory effort and able to speak in complete sentences Auscultation: clear to auscultation bilaterally Cardio Rate: regular rate Rhythm: regular rhythm GI Inspection: Yes normal to inspection General: Yes no CVA tenderness Back/Spine/Pelvis Back: no CVA tenderness Cervical Spine: normal cervical lordosis and cervical ROM normal Thoracic/Lumbar Spine: thoracic and lumbar spine normal to inspection and thoraco-lumbar ROM normal Pelvis: no pain with anterior-posterior compression Neuro General: patient oriented x3, moves all extremities and no meningeal signs Cranial nerves: Yes Equal, round and reactive pupils present Cognition (Neuro): normal cognition Motor exam (neuro): 5/5 motor strength present throughout Sensory Exam: Normal double simultaneous stimulation for sensation Coordination: [id number] test normal Extrem General: Yes normal to inspection, Yes full ROM, Yes capillary refill normal, Yes no pedal edema and Yes no calf tenderness Psych Appearance: grossly normal Mental Status: mental status grossly normal Affect: normal affect Attitude: cooperative Thought process: Normal thought process present Thought content: Normal thought content present Insight: Good insight present (Psych) Course Course Course Narrative: COVID and flu testing were negative. Chest x-ray shows no acute findings due to symptoms greater than 5 days will treat with course of antibiotics for assumed bronchitis and prednisone course. Reviewed worrisome signs and symptoms of when to return to the emergency department. Comfortable discharge home. Medical Decision Making MDM Narrative Medical decision making narrative: 51-year-old female with a history of asthma, hypertension here with 5 days of body aches, headache, nonproductive cough, chest discomfort with coughing and shortness of breath unrelieved with home albuterol. Vitals are stable. Exam is normal. Will check flu, COVID testing and chest x-ray -low concern for PE with perc score 0. No hypoxia, no tachypnea, no tachycardia with no clinical findings concerning for DVT. Medical Records Medical records reviewed: Yes I reviewed the patient's medical records. Lab Data Lab results reviewed: Yes I reviewed the patient's lab results. Labs: Lab Results 02/01/22 02/01/22 Range/Units 10:04 10:04 COVID-19 (LEE ANN) Negative (Negative) COVID-19 Clin Com See Note Influenza Type A (RUBIN) Negative (Negative) Influenza Type B (RUBIN) Negative (Negative) Influenza A & B Note See Note Imaging Data Chest x-ray: Attestation: I personally reviewed and interpreted this imaging study as follows: Radiologist's impression: [place]: XR CHEST CLINICAL INFORMATION: Cough. COMPARISON: 07/16/2021 chest radiographs. TECHNIQUE: 2 views of the chest were obtained. FINDINGS: No significant abnormality is noted involving the heart, lungs, mediastinum, bony thorax or soft tissues. XR/XR chest 2V IMPRESSION: No acute cardiopulmonary process. Discharge Plan Discharge Clinical Impression: Bronchitis Patient Disposition: Home, Self-Care Instructions: Acute Bronchitis (ED) Additional Instructions: COVID and flu testing are negative Increase fluids, rest Take Tylenol for pain or fever Prescriptions: New azithromycin 250 mg tablet 250 mg PO DAILY 6 Days Qty: 6 0RF Rx Instructions: start on day 2 of therapy prednisone 20 mg tablet 40 mg PO DAILY Qty: 10 0RF benzonatate 200 mg capsule 200 mg PO TID PRN (Reason: cough) Qty: 20 0RF No Action cyclobenzaprine 10 mg tablet 10 mg PO TID PRN (Reason: muscle spasm) Qty: 14 0RF ondansetron 4 mg tablet,disintegrating 4 mg PO Q8H PRN (Reason: nausea and vomiting) Qty: 20 0RF omeprazole 40 mg capsule,delayed release(DR/EC) 40 mg PO DAILY 30 Days Qty: 30 0RF Robitussin Cough and Cold CF 2.5-5-50 mg/5 mL liquid 20 ml PO Q4H PRN (Reason: cough) Qty: 118 0RF naproxen [Naprosyn] 500 mg tablet 500 mg PO BID Qty: 20 0RF ondansetron HCl [Zofran] 4 mg tablet 4 mg PO Q8H PRN (Reason: nausea and vomiting) Qty: 10 0RF benzonatate [Tessalon Perles] 100 mg capsule 100 mg PO TID PRN (Reason: cough) 5 Days Qty: 20 0RF ibuprofen 400 mg tablet 400 mg PO Q6H PRN (Reason: pain) Qty: 20 0RF cyclobenzaprine 10 mg tablet 10 mg PO TID PRN (Reason: muscle spasm) 7 Days Qty: 21 0RF Referrals: Physician,None [Primary Care Provider] - Stand Alone Forms: Work/School Release Interventions: ED Discharge Assessment Last Done: 02/01/22 12:53 Discharge Date/Time: 02/01/22 12:54
[2022-02-01 10:33] LABS: COVID-19 Test Negative (Negative); IDNOW Serial# 55D5AD1C; Influenza A Negative (Negative); Influenza B2 Negative (Negative)
[2022-02-01 12:07] VITALS: BP 145/76; PULSE 62; RESP 16; O2SAT 98
== END 2022-02-01 12:54 | disposition home or self-care (01) ==
PROVIDERS: Emergency Provider Emergency Medicine
DX: J40 Bronchitis, not specified as acute or chronic (principal); R68.83 Chills (without fever); R07.81 Pleurodynia; Z20.822 Contact with and (suspected) exposure to COVID-19; Z79.899 Other long term (current) drug therapy
CPT/HCPCS: 71046; 87502; 87635; 99283

== ENCOUNTER 2022-03-01 11:12 | Emergency (ER) | payer MEDICARE, MEDICAID, SELFPAY ==
[2022-03-01 13:29] VITALS: BP 157/94; PULSE 58; RESP 18; TEMP 36.3; O2SAT 97; BMI 40.7
[2022-03-01 13:41] LABS: Glucose, Whole Blood 103 mg/dL (60-115)
[2022-03-01 13:50] LABS: Appearance Urine CLEAR; Color Urine STRAW; Glucose Urine UA NEG (NEG); Leukocyte Esterase Urine NEG (NEG); Nitrite Urine NEG (NEG); Urine Blood NEG (NEG); Urine Ketones NEG (NEG); Urine Protein NEG (NEG-TRACE)
[2022-03-01 13:51] LABS: COVID-19 Test Positive (Negative)
--- NOTE | 2022-03-01 15:01 | ED.GENADULT ---
HPI - General Adult General Chief complaint: Upper Respiratory Symptoms Stated complaint: Body aches/Cough Time Seen by Provider: 03/01/22 15:01 Source: patient Mode of arrival: ambulatory Limitations: no limitations History of Present Illness HPI narrative: 51-year-old female with a history of diabetes, hypertension, bronchial asthma who presents to the ER with 3 days of diffuse body aches, dry cough, diarrhea, weakness and fatigue. She recently went to [place] [employer] [place] this weekend where many people were having similar symptoms and feeling unwell. She reports having a cough a week and half ago in being diagnosed with bronchitis. Her symptoms began to evolve when she was away this weekend. She reports decreased p.o. intake and weakness. She has been taking Motrin and Tylenol for body aches. She reports subjective fevers at home. She denies any shortness of breath or chest pain. She is able to tolerate p.o.. She denies any blood in her diarrhea and has not taken any medications yet for this. She is taking Robitussin NyQuil for her cough with moderate effect. She is vaccinated for COVID. MD complaint: Body aches, cough, diarrhea Onset (ago): day(s) (3) Location: head, chest, left, right, upper extremity and lower extremity Radiation: non-radiation Severity: moderate Quality: aching Pain Consistency: constant Relieving factors: rest Exacerbating factors: movement Associated symptoms: cough, fever/chills, headaches, loss of appetite, malaise and weakness Treatments prior to arrival: none Related Data Previous Rx's Medication Instructions Recorded cyclobenzaprine 10 mg tablet 10 mg PO TID PRN muscle spasm #14 07/29/20 tabs ondansetron 4 mg disintegrating 4 mg PO Q8H PRN nausea and 07/29/20 tablet vomiting #20 tabs benzonatate 100 mg capsule 100 mg PO TID PRN cough 5 days #20 05/22/21 (Tessalon Perles) caps ibuprofen 400 mg tablet 400 mg PO Q6H PRN pain #20 tabs 05/22/21 ondansetron HCl 4 mg tablet 4 mg PO Q8H PRN nausea and 05/22/21 (Zofran) vomiting #10 tabs omeprazole 40 mg capsule,delayed 40 mg PO DAILY 30 days #30 caps 05/31/21 release naproxen 500 mg tablet (Naprosyn) 500 mg PO BID #20 tabs 07/16/21 [id number] 2.5 20 ml PO Q4H PRN cough #118 mL 07/16/21 mg-5 mg-50 mg/5 mL oral liquid (Robitussin Cough and Cold CF) cyclobenzaprine 10 mg tablet 10 mg PO TID PRN muscle spasm 7 12/31/21 days #21 tabs azithromycin 250 mg tablet 250 mg PO DAILY 6 days #6 tabs 02/01/22 benzonatate 200 mg capsule 200 mg PO TID PRN cough #20 caps 02/01/22 prednisone 20 mg tablet 40 mg PO DAILY #10 tabs 02/01/22 hydrocodone-homatropine 5 mg-1.5 5 ml PO Q6H PRN cough #60 mL 03/01/22 mg/5 mL (5 mL) oral syrup (Hycodan) loperamide 2 mg tablet (Imodium 2 mg PO Q6H PRN loose stool #20 03/01/22 A-D) tabs Allergies Allergy/AdvReac Type Severity Reaction Status Date / Time aspirin [ASA] Allergy Unknown HIVES Verified 12/31/21 07:24 soybean [SOYBEAN] Allergy Unknown RASH Verified 12/31/21 07:24 Review of Systems Review of Systems: Constitutional: + Fever, + Chills ENT/Mouth: + sore throat, No Rhinorrhea Eyes: No Eye Pain, No Swelling, No Redness Cardiovascular: No Chest Pain, No SOB Respiratory: + Cough, No Sputum, No Wheezing, No dyspnea Gastrointestinal: + Nausea, No Vomiting, +Diarrhea, No abdominal Pain, No Hematochezia, No Melena Genitourinary: No Dysuria, No Urinary Frequency, No Hematuria Musculoskeletal: No joint pain, + Myalgias Skin: No Skin Lesions, No rash Neuro: No Weakness, No Numbness, No Dizziness, No Headache Heme/Lymph: No Bruising, No Lymphadenopathy PMFSH Past Medical History Medical History Asthma HTN (hypertension) Kidney stones Surgical History H/O gastric bypass Hx of cholecystectomy Social History Social History Alcohol intake: former Patient Tobacco Use Status: Never used Tobacco Advance Directives: No Advance Directives Information Provided: No Physical Exam ED Vital Signs: Vital Signs - 24 hr 03/01/22 13:29 Temperature 97.4 F Pulse Rate 58 Respiratory Rate 18 Blood Pressure 157/94 H Pulse Oximetry 97 Oxygen Delivery Method Room Air BMI result Body Mass Index 40.7 Appearance: Alert. Oriented X3. No acute distress. Eyes: Pupils equal, round and reactive to light. ENT: Pharynx normal. No tonsillar swelling or exudate, uvula midline. Neck: Normal inspection. Neck supple. No lymphadenopathy CVS: Normal heart rate and rhythm. Pulses normal. Respiratory: No respiratory distress. Breath sounds normal. Abdomen: Soft and nontender. +BS x4 Skin: Skin warm and dry. Normal skin color. Normal skin turgor. No rashes. Extremities: No lower extremity edema. No calf tenderness or swelling. Neuro: Oriented X 3 grossly normal, nonfocal Course Course Course Narrative: 51-year-old female with a history of hypertension, asthma, diabetes who presents to the ER with multiple complaints-body aches, dry cough, diarrhea, weakness, fatigue and generally not feeling well for the last 3 days after she went to a [employer] [facility]. Multiple people had similar symptoms. On arrival to the ER her vital signs are within normal limits, SpO2 97% on room air. On examination her lungs are clear and she appears nontoxic. Her COVID swab came back positive today. She is fully vaccinated and boosted. At this time patient is stable for discharge home with supportive care. We discussed in length return precautions. She is going to go and get a pulse oximeter the pharmacy now. Will prescribe and antitussive an antidiarrheal agent for her symptoms. She was encourage follow-up with her primary care this week. Stable for discharge home. Medical Decision Making Lab Data Labs: Lab Results 03/01/22 03/01/22 03/01/22 Range/Units 13:35 13:37 13:43 POC Glucose 103 (60-115) mg/dL Urine Color STRAW Urine Appearance CLEAR Urine pH 6.0 (5.0-8.0) Ur Specific [place] 1.010 (1.005-1.025) Urine Protein NEG (NEG-TRACE) MG/DL Urine Glucose (UA) NEG (NEG) MG/DL Urine Ketones NEG (NEG) MG/DL Urine Blood NEG (NEG) Urine Nitrite NEG (NEG) Ur Leukocyte Esterase NEG (NEG) COVID-19 ([facility]E [facility]) Positive A (Negative) COVID-19 Clin Com See Note Critical Care Time Critical Care Time Critical Care Time: No Discharge Plan Discharge Clinical Impression: COVID-19 Patient Disposition: Home, Self-Care Instructions: Covid-19 Viral Syndrome and Novel Coronavirus (ED) Hey/Ath Additional Instructions: You were found to be COVID-19 POSITIVE today. Your exam and oxygen levels were normal. Rest. Drink plenty of fluids. Do not go out in public for the next 7 days. Take over the counter cold/flu medications as needed for your symptoms. Take Tylenol and/or Motrin as needed for fevers and body aches. Recommend getting a pulse oximeter at the pharmacy to monitor your oxygen levels. If you have levels 90% or less, call 911 or come back to the ER for further evaluation. Follow up with your doctor this week. If you develop new or worsening symptoms call 911 or come back to the ER for further evaluation. Prescriptions: New loperamide [Imodium A-D] 2 mg tablet 2 mg PO Q6H PRN (Reason: loose stool) Qty: 20 0RF hydrocodone-homatropine [Hycodan] 5-1.5 mg/5 mL (5 mL) syrup 5 ml PO Q6H PRN (Reason: cough) Qty: 60 0RF Rx Instructions: Partial Fill upon patient request. No Action cyclobenzaprine 10 mg tablet 10 mg PO TID PRN (Reason: muscle spasm) Qty: 14 0RF ondansetron 4 mg tablet,disintegrating 4 mg PO Q8H PRN (Reason: nausea and vomiting) Qty: 20 0RF omeprazole 40 mg capsule,delayed release(DR/EC) 40 mg PO DAILY 30 Days Qty: 30 0RF Robitussin Cough and Cold CF 2.5-5-50 mg/5 mL liquid 20 ml PO Q4H PRN (Reason: cough) Qty: 118 0RF naproxen [Naprosyn] 500 mg tablet 500 mg PO BID Qty: 20 0RF ondansetron HCl [Zofran] 4 mg tablet 4 mg PO Q8H PRN (Reason: nausea and vomiting) Qty: 10 0RF benzonatate [Tessalon Perles] 100 mg capsule 100 mg PO TID PRN (Reason: cough) 5 Days Qty: 20 0RF ibuprofen 400 mg tablet 400 mg PO Q6H PRN (Reason: pain) Qty: 20 0RF cyclobenzaprine 10 mg tablet 10 mg PO TID PRN (Reason: muscle spasm) 7 Days Qty: 21 0RF azithromycin 250 mg tablet 250 mg PO DAILY 6 Days Qty: 6 0RF Rx Instructions: start on day 2 of therapy prednisone 20 mg tablet 40 mg PO DAILY Qty: 10 0RF benzonatate 200 mg capsule 200 mg PO TID PRN (Reason: cough) Qty: 20 0RF Stand Alone Forms: Work/School Release
== END 2022-03-01 15:34 | disposition home or self-care (01) ==
PROVIDERS: Emergency Provider Emergency Medicine
DX: U07.1 COVID-19 (principal); M79.10 Myalgia, unspecified site; E11.9 Type 2 diabetes mellitus without complications; I10 Essential (primary) hypertension
CPT/HCPCS: 81003; 82947; 87635; 99283

== ENCOUNTER 2022-05-16 11:55 | Emergency (ER) | payer OTHER, MEDICAID, SELFPAY ==
--- NOTE | ~2022-05-16 | XR_ITS ---
EXAMINATION: XR CHEST CLINICAL INFORMATION: Cough. COMPARISON: 02/01/2022 chest radiographs. TECHNIQUE: Frontal view of the chest was obtained. FINDINGS: No significant abnormality is noted involving the heart, lungs, mediastinum, bony thorax or soft tissues. XR/XR chest 1V IMPRESSION: No acute cardiopulmonary process.
[2022-05-16 12:16] VITALS: PULSE 56; RESP 18; TEMP 36.9; O2SAT 99; BMI 40.7
[2022-05-16 12:24] VITALS: BP 168/81; PULSE 60; O2SAT 97
--- NOTE | 2022-05-16 12:43 | ED_ITS ---
HPI - General Adult General Chief complaint: General Medical Stated complaint: Chills/Fever/Cough Time Seen by Provider: 05/16/22 12:28 Source: patient Mode of arrival: ambulatory History of Present Illness HPI narrative: 51-year-old female with past medical history of asthma, HTN, renal stones, presenting to the ED complaining of cough, congestion, rhinorrhea, fatigue, diarrhea, nausea chest discomfort when coughing, mild SOB x1 week. Admits tested negative for COVID-19 on home test. Also reports fever T-max 102 degrees. Denies taking antipyretics today. Denies recent travel, abdominal pain, vomiting, dysuria Onset (ago): week(s) Related Data Previous Rx's Medication Instructions Recorded cyclobenzaprine 10 mg tablet 10 mg PO TID PRN muscle spasm #14 07/29/20 tabs ondansetron 4 mg disintegrating 4 mg PO Q8H PRN nausea and 07/29/20 tablet vomiting #20 tabs benzonatate 100 mg capsule 100 mg PO TID PRN cough 5 days #20 05/22/21 (Asael Rand) caps ibuprofen 400 mg tablet 400 mg PO Q6H PRN pain #20 tabs 05/22/21 ondansetron HCl 4 mg tablet 4 mg PO Q8H PRN nausea and 05/22/21 (Zofran) vomiting #10 tabs omeprazole 40 mg capsule,delayed 40 mg PO DAILY 30 days #30 caps 05/31/21 release naproxen 500 mg tablet (Naprosyn) 500 mg PO BID #20 tabs 07/16/21 [id number]-[id number] 2.5 20 ml PO Q4H PRN cough #118 mL 07/16/21 mg-5 mg-50 mg/5 mL oral liquid (Robitussin Cough and Cold CF) cyclobenzaprine 10 mg tablet 10 mg PO TID PRN muscle spasm 7 12/31/21 days #21 tabs azithromycin 250 mg tablet 250 mg PO DAILY 6 days #6 tabs 02/01/22 benzonatate 200 mg capsule 200 mg PO TID PRN cough #20 caps 02/01/22 prednisone 20 mg tablet 40 mg PO DAILY #10 tabs 02/01/22 hydrocodone-homatropine 5 mg-1.5 5 ml PO Q6H PRN cough #60 mL 03/01/22 mg/5 mL (5 mL) oral syrup (Hycodan) loperamide 2 mg tablet (Imodium 2 mg PO Q6H PRN loose stool #20 03/01/22 A-D) tabs azithromycin 250 mg tablet See Rx Instructions PO .COMPLEX #6 05/16/22 tabs benzonatate 100 mg capsule 100 mg PO TID PRN cough #14 caps 05/16/22 Allergies Allergy/AdvReac Type Severity Reaction Status Date / Time aspirin [ASA] Allergy Unknown HIVES Verified 12/31/21 07:24 soybean [SOYBEAN] Allergy Unknown RASH Verified 12/31/21 07:24 Review of Systems Review of Systems: Constitutional: No Fever, No Chills, +fatigue/maiaise ENT/Mouth: No Ear Pain, + Nasal Congestion, No Hoarseness, + sore throat, + Rhinorrhea, No Swallowing Difficulty Cardiovascular: + Chest discomfort when coughing, + SOB Respiratory: + Cough, No Sputum, No Wheezing Gastrointestinal: + Nausea, No Vomiting,+ Diarrhea, No Constipation, No Abdominal pain Genitourinary: No Dysuria, No Urinary Frequency, No Hematuria, No Flank Pain Musculoskeletal: No joint pain, + Myalgias, No Joint Swelling Skin: No Skin Lesions, No rash Neuro: No Weakness, No Numbness, No Paresthesias, +ABREU Yes all other systems are reviewed and are negative Constitutional: Constitutional: Reports as per [facility] Past Medical History Attestation statement: The following information was validated with the patient. Medical History Asthma HTN (hypertension) Kidney stones Surgical History H/O gastric bypass Hx of cholecystectomy Social History Social History Alcohol intake: former Patient Tobacco Use Status: Never used Tobacco Advance Directives: Yes Advance Directives Information Provided: Yes Advance Directives on File: No Physical Exam ED Vital Signs: Vital Signs - 24 hr 05/16/22 12:16 05/16/22 12:24 05/16/22 13:07 Temperature 98.4 F Pulse Rate 56 60 86 Respiratory Rate 18 18 Blood Pressure 168/81 H Pulse Oximetry 99 97 Oxygen Delivery Method Room Air Room Air BMI result Body Mass Index 40.7 Const General: cooperative, healthy appearing, comfortable, no acute distress and well developed Orientation/consciousness: patient oriented x3 Limitations: no limitations HENMT Head: Yes normal to inspection and Yes atraumatic Ears: hearing grossly normal bilaterally, external ears normal and TM's normal bilaterally General nose exam: Normal external nose present Face and sinus: Yes normal facial exam Mouth: Normal oral and palatal mucosa present Throat: Yes posterior oropharynx normal, Yes tonsils normal, Yes uvula midline, No uvula laterally displaced and No uvular edema Eyes General: appearance normal, both eyes and all related structures EOM: EOMs intact bilaterally Neck Neck: Yes normal visual inspection and Yes no meningeal signs Resp Effort & Inspection: normal respiratory effort and no respiratory distress Auscultation: clear to auscultation bilaterally, no crackles, no rales and no rhonchi Cardio Rate: regular rate Heart sounds: S1 normal heart sound present and S2 normal heart sound present GI Inspection: Yes normal to inspection Palpation (GI): Soft to palpation and nontender Skin Rashes: no rashes Wounds: no wounds Neuro General: patient oriented x3, tone normal and no meningeal signs Gait exam (Neuro): Normal gait present Extrem General: Yes normal to inspection and Yes no pedal edema Course Course Course Narrative: XR chest 1V IMPRESSION: No acute cardiopulmonary process. -COVID-19 and influenza negative Results discussed with patient including worrisome signs and symptoms and strict return precautions, and when to return to the emergency department. They verbalized understanding and feel safe for discharge at this time. Medical Decision Making [facility] Narrative Medical decision making narrative: 51-year-old female with past medical history of asthma, HTN, renal stones, presenting to the ED complaining of cough, congestion, rhinorrhea, fatigue, diarrhea, nausea chest discomfort when coughing, mild SOB x1 week. On exam vital signs stable, NAD, nontoxic appearing, lungs CTA, exam otherwise nonfocal. Concern for viral illness vs asthma exacerbation vs bronchitis. Rule out pneumonia. Symptoms atypical for ACS/PE Plan: COVID-19/influenza testing, DuoNeb, CXR, PO Fioricet, reassess Medical Records Medical records reviewed: Yes I reviewed the patient's medical records. Lab Data Lab results reviewed: Yes I reviewed the patient's lab results. Labs: Lab Results 05/16/22 05/16/22 Range/Units 12:33 12:33 COVID-19 (LEE ANN) Negative (Negative) COVID-19 Clin Com See Note Influenza Type A (RUBIN) Negative (Negative) Influenza Type B (RUBIN) Negative (Negative) Influenza A & B Note See Note Discharge Plan Discharge Clinical Impression: Bronchitis, Acute viral syndrome Patient Disposition: Home, Self-Care Instructions: Acute Bronchitis (ED), Viral Syndrome (ED) Additional Instructions: You tested negative for COVID-19 and the flu. Her chest x-ray is unremarkable We are treating for bronchitis, azithromycin as an antibiotic take as prescribed. Additionally Tessalon Perles for cough. Stay hydrated. Take Tylenol and Motrin as needed. Rest. Follow-up with her doctor If symptoms persist or worsen return to the emergency department or call 911 Prescriptions: New azithromycin 250 mg tablet See Rx Instructions .ROUTE .COMPLEX Qty: 6 0RF Rx Instructions: take 500 mg today (day 1), then 250 mg for 4 days (days 2-5) benzonatate 100 mg capsule 100 mg PO TID PRN (Reason: cough) Qty: 14 0RF No Action cyclobenzaprine 10 mg tablet 10 mg PO TID PRN (Reason: muscle spasm) Qty: 14 0RF ondansetron 4 mg tablet,disintegrating 4 mg PO Q8H PRN (Reason: nausea and vomiting) Qty: 20 0RF omeprazole 40 mg capsule,delayed release(DR/EC) 40 mg PO DAILY 30 Days Qty: 30 0RF Robitussin Cough and Cold CF 2.5-5-50 mg/5 mL liquid 20 ml PO Q4H PRN (Reason: cough) Qty: 118 0RF naproxen [Naprosyn] 500 mg tablet 500 mg PO BID Qty: 20 0RF loperamide [Imodium A-D] 2 mg tablet 2 mg PO Q6H PRN (Reason: loose stool) Qty: 20 0RF hydrocodone-homatropine [Hycodan] 5-1.5 mg/5 mL (5 mL) syrup 5 ml PO Q6H PRN (Reason: cough) Qty: 60 0RF Rx Instructions: Partial Fill upon patient request. ondansetron HCl [Zofran] 4 mg tablet 4 mg PO Q8H PRN (Reason: nausea and vomiting) Qty: 10 0RF benzonatate [Tessalon Perles] 100 mg capsule 100 mg PO TID PRN (Reason: cough) 5 Days Qty: 20 0RF ibuprofen 400 mg tablet 400 mg PO Q6H PRN (Reason: pain) Qty: 20 0RF cyclobenzaprine 10 mg tablet 10 mg PO TID PRN (Reason: muscle spasm) 7 Days Qty: 21 0RF azithromycin 250 mg tablet 250 mg PO DAILY 6 Days Qty: 6 0RF Rx Instructions: start on day 2 of therapy prednisone 20 mg tablet 40 mg PO DAILY Qty: 10 0RF benzonatate 200 mg capsule 200 mg PO TID PRN (Reason: cough) Qty: 20 0RF Referrals: Physician,Unknown J [Primary Care Provider] - Stand Alone Forms: Work/School Release
[2022-05-16] MEDS: Albuterol/Iprat 2.5/0.5MG 3 ML AMPUL.NEB INHALE (13:06)
[2022-05-16 13:07] VITALS: PULSE 86; RESP 18; O2SAT 96
[2022-05-16 13:07] LABS: IDNOW Serial# 55D5AD1C; Influenza A Negative (Negative); Influenza B2 Negative (Negative)
[2022-05-16] MEDS: Butalb/Acetamin/Caff 50/325/40 TABLET 1 TAB PO (13:10)
[2022-05-16 13:31] LABS: COVID-19 Test Negative (Negative); IDNOW Serial# 16C4AD1C
--- NOTE | 2022-05-16 14:01 | MHC.CM.ED ---
Received notification from registration that patient requesting to complete new HCP. HCP completed, signed and witnessed. Original given to patient. Copy placed in chart.
== END 2022-05-16 14:11 | disposition home or self-care (01) ==
PROVIDERS: Physician Assistant; Emergency Provider Emergency Medicine
DX: B34.9 Viral infection, unspecified (principal); J40 Bronchitis, not specified as acute or chronic; Z20.822 Contact with and (suspected) exposure to COVID-19; R06.02 Shortness of breath; I10 Essential (primary) hypertension; Z79.899 Other long term (current) drug therapy
CPT/HCPCS: 71045; 87502; 87635; 94640; 99284

== ENCOUNTER 2022-06-23 09:39 | Emergency (ER) | payer OTHER, MEDICAID, SELFPAY ==
--- NOTE | ~2022-06-23 | XR_ITS ---
EXAMINATION: XR CHEST CLINICAL INFORMATION: Cough, upper respiratory symptoms. COMPARISON: 05/16/2022 chest radiograph. TECHNIQUE: Frontal view of the chest was obtained. FINDINGS: No significant abnormality is noted involving the heart, lungs, mediastinum, bony thorax or soft tissues. XR/XR chest 1V IMPRESSION: No acute cardiopulmonary process.
[2022-06-23 09:50] VITALS: BP 148/77; PULSE 63; RESP 18; TEMP 36.7; O2SAT 97; BMI 39.4
[2022-06-23 10:24] LABS: Appearance Urine Clear; Color Urine Yellow; Glucose Urine UA 250 mg/dL (Negative); Leukocyte Esterase Urine Small (1+) (Negative); Nitrite Urine Negative (Negative); PH 5.5 (5.0-9.0); Specific Gravity - Urine >= 1.030 (1.005-1.025); UMIC TRIGGER UACC YES; Urine Blood Negative (Negative); Urine Ketones Trace mg/dL (Negative); Urine Protein Negative (Neg-Trace)
[2022-06-23 10:51] LABS: Influenza A PCR NEGATIVE (Negative); Influenza B PCR NEGATIVE (Negative); Resp Syncy Virus RNA Qual PCR NEGATIVE (Negative); SARS COV2 PCR INHOUSE NEGATIVE (Negative)
[2022-06-23 11:17] LABS: Bacteria Urine None Seen (None Seen); Hyaline Casts Urine 0-2 /LPF (0-2); RBC Urine 0-2 /HPF (0-2); UACC Culture Trigger YES; WBC Urine 0-5 /HPF (0-5)
--- NOTE | 2022-06-23 11:41 | ED_ITS ---
HPI - General Adult General Chief complaint: General Medical Stated complaint: not feeling well, sob, coughing Time Seen by Provider: 06/23/22 11:45 Related Data Previous Rx's Medication Instructions Recorded cyclobenzaprine 10 mg tablet 10 mg PO TID PRN muscle spasm #14 07/29/20 tabs ondansetron 4 mg disintegrating 4 mg PO Q8H PRN nausea and 07/29/20 tablet vomiting #20 tabs benzonatate 100 mg capsule 100 mg PO TID PRN cough 5 days #20 05/22/21 (Asael Rand) caps ibuprofen 400 mg tablet 400 mg PO Q6H PRN pain #20 tabs 05/22/21 ondansetron HCl 4 mg tablet 4 mg PO Q8H PRN nausea and 05/22/21 (Zofran) vomiting #10 tabs omeprazole 40 mg capsule,delayed 40 mg PO DAILY 30 days #30 caps 05/31/21 release naproxen 500 mg tablet (Naprosyn) 500 mg PO BID #20 tabs 07/16/21 lunjgqykktzld-JE-ltsiglqxfzw 2.5 20 ml PO Q4H PRN cough #118 mL 07/16/21 mg-5 mg-50 mg/5 mL oral liquid (Robitussin Cough and Cold CF) cyclobenzaprine 10 mg tablet 10 mg PO TID PRN muscle spasm 7 12/31/21 days #21 tabs azithromycin 250 mg tablet 250 mg PO DAILY 6 days #6 tabs 02/01/22 benzonatate 200 mg capsule 200 mg PO TID PRN cough #20 caps 02/01/22 prednisone 20 mg tablet 40 mg PO DAILY #10 tabs 02/01/22 hydrocodone-homatropine 5 mg-1.5 5 ml PO Q6H PRN cough #60 mL 03/01/22 mg/5 mL (5 mL) oral syrup (Hycodan) loperamide 2 mg tablet (Imodium 2 mg PO Q6H PRN loose stool #20 03/01/22 A-D) tabs azithromycin 250 mg tablet See Rx Instructions PO .COMPLEX #6 05/16/22 tabs benzonatate 100 mg capsule 100 mg PO TID PRN cough #14 caps 05/16/22 rzsqoteuvf-sxjblyrqobkbu-nxkpyszg 1 cap PO Q4-6H PRN headache #14 05/16/22 50 mg-300 mg-40 mg capsule caps (Fioricet) albuterol sulfate 0.63 mg/3 mL 0.63 mg (3 mL) inhalation QID PRN 06/23/22 solution for nebulization shortness of breath or wheezing #75 mL albuterol sulfate 90 mcg/actuation 1 inh inhalation QID PRN shortness 06/23/22 aerosol inhaler of breath or wheezing #8.5 grams codeine 10 mg-guaifenesin 100 mg/5 5 ml PO Q6H PRN cold symptoms #120 06/23/22 mL oral liquid (Guaifenesin AC) mL nebulizers (AeroEclipse II #1 ea 06/23/22 Nebulizer) prednisone 20 mg tablet 40 mg PO DAILY rash 5 days #10 tabs 06/23/22 Allergies Allergy/AdvReac Type Severity Reaction Status Date / Time aspirin [ASA] Allergy Intermediate HIVES Verified 06/23/22 09:50 soybean [SOYBEAN] Allergy Intermediate RASH Verified 06/23/22 09:50 PMFSH Past Medical History Medical History (Updated 06/23/22 @ 13:26 by NOBLE Hernandez) Asthma HTN (hypertension) Kidney stones Surgical History H/O gastric bypass Hx of cholecystectomy Social History Social History Alcohol intake: former Patient Tobacco Use Status: Never used Tobacco Advance Directives: No Physical Exam ED Vital Signs: Vital Signs - 24 hr 06/23/22 09:50 Temperature 98.0 F Pulse Rate 63 Respiratory Rate 18 Blood Pressure 148/77 H Pulse Oximetry 97 Oxygen Delivery Method Room Air BMI result Body Mass Index 39.4 Medications Administered Discontinued Medications Generic Name Dose Route Start Last Admin Trade Name Freq PRN Reason Stop Dose Admin Albuterol Sulfate 2 puff 06/23/22 12:25 06/23/22 13:27 Albuterol Sulfate 90 Mcg 8 Gm Inhaler INHALE 06/23/22 12:26 2 puff ONCE ONE Administration Doxycycline Hyclate 100 mg 06/23/22 12:25 06/23/22 12:31 Doxycycline Hyclate 100 Mg Tablet PO 06/23/22 12:26 100 mg ONCE ONE Administration Guaifenesin/Codeine Phosphate 10 ml 06/23/22 12:25 06/23/22 12:32 Guaifen/Codeine Sf 200/20/10ml 10 Ml Liquid PO 06/23/22 12:26 10 ml ONCE ONE Administration Ibuprofen 800 mg 06/23/22 12:25 06/23/22 12:32 Ibuprofen 800 Mg Tablet PO 06/23/22 12:26 800 mg ONCE ONE Administration Prednisone 60 mg 06/23/22 12:25 06/23/22 12:32 Prednisone 20 Mg Tablet PO 06/23/22 12:26 60 mg ONCE ONE Administration Medical Decision Making Lab Data Result diagrams: 06/23/22 11:14 06/23/22 11:14 Labs: Lab Results 06/23/22 06/23/22 06/23/22 Range/Units 09:56 10:04 11:14 WBC 6.7 (4.8-10.8) X10*3/uL RBC 4.82 (4.20-5.50) X10*6/uL Hgb 13.6 (12.0-16.0) g/dl Hct 40.5 (37.0-47.0) % MCV 84.0 (80.0-98.0) fL MCH 28.2 (27.0-33.0) pg MCHC 33.6 (31.0-35.0) g/dl RDW 12.8 (11.0-16.0) % Plt Count [employer] MPV 11.6 (9.4-12.3) fL Immature Gran % (Auto) 0.3 (0.0-0.4) % Neut % (Auto) 56.9 (45-73) % Lymph % (Auto) 30.8 (20-40) % [place] % (Auto) 5.1 (2-11) % Eos % (Auto) 6.3 H (0-4) % Baso % (Auto) 0.6 (0-2) % Lymph # (Auto) 2.1 (1.2-4.9) X10*3/uL [place] # (Auto) 0.3 (0.1-1.2) X10*3/uL Eos # (Auto) 0.4 (0.0-0.4) X10*3/uL Baso # (Auto) 0.0 (0.0-0.2) X10*3/uL Abs Immat Gran (auto) 0.02 (0.00-0.03) X10*3/uL Absolute Neuts (auto) 3.8 (2.0-8.3) x10*3/uL Absolute Nucleated RBC 0.000 (0.0-0.012) X10*3/uL Nucleated RBC % (auto) 0.0 (0.0-0.2) /100WBC Smear Tech's Comments VERIFIED Sodium (135-145) mmol/L Potassium (3.3-5.1) mmol/L Chloride (96-108) mmol/L Carbon Dioxide (22-29) mmol/L Anion Gap (12-20) BUN (9-16) mg/dL Creatinine (0.5-1.4) mg/dL Estim Creat Clear Calc Estimated GFR Random Glucose (60-115) mg/dL Estimat Average Glucose mg/dL Hemoglobin A1c % % Calcium (8.4-10.2) mg/dL Magnesium (1.6-2.6) mg/dL Total Bilirubin (0.0-1.0) mg/dL Direct Bilirubin (0.0-0.5) mg/dL AST (5-31) U/L ALT (0-31) U/L Alkaline Phosphatase (39-117) U/L Total Protein (6.5-8.0) g/dL Albumin (3.5-5.0) g/dL Lipase (8-78) U/L Urine Color Yellow Urine Appearance Clear Urine pH 5.5 (5.0-9.0) Ur Specific [place] >= 1.030 H (1.005-1.025) Urine Protein Negative (Neg-Trace) mg/dL Urine Glucose (UA) 250 H (Negative) mg/dL Urine Ketones Trace (Negative) mg/dL Urine Blood Negative (Negative) Urine Nitrite Negative (Negative) Ur Leukocyte Esterase Small (1+) H (Negative) Urine RBC 0-2 (0-2) /HPF Urine WBC 0-5 (0-5) /HPF Ur Squamous Epith Cells 3-5 (0-2) /HPF Urine Bacteria None Seen (None Seen) Hyaline Casts 0-2 (0-2) /LPF Influenza Type A (PCR) NEGATIVE (Negative) Influenza Type B (PCR) NEGATIVE (Negative) RSV RNA Qual (PCR) NEGATIVE (Negative) SARS-CoV-2 RNA (RT-PCR) NEGATIVE (Negative) 06/23/22 06/23/22 Range/Units 11:14 11:14 WBC (4.8-10.8) X10*3/uL RBC (4.20-5.50) X10*6/uL Hgb (12.0-16.0) g/dl Hct (37.0-47.0) % MCV (80.0-98.0) fL MCH (27.0-33.0) pg MCHC (31.0-35.0) g/dl RDW (11.0-16.0) % Plt Count MPV (9.4-12.3) fL Immature Gran % (Auto) (0.0-0.4) % Neut % (Auto) (45-73) % Lymph % (Auto) (20-40) % [place] % (Auto) (2-11) % Eos % (Auto) (0-4) % Baso % (Auto) (0-2) % Lymph # (Auto) (1.2-4.9) X10*3/uL [place] # (Auto) (0.1-1.2) X10*3/uL Eos # (Auto) (0.0-0.4) X10*3/uL Baso # (Auto) (0.0-0.2) X10*3/uL Abs Immat Gran (auto) (0.00-0.03) X10*3/uL Absolute Neuts (auto) (2.0-8.3) x10*3/uL Absolute Nucleated RBC (0.0-0.012) X10*3/uL Nucleated RBC % (auto) (0.0-0.2) /100WBC Smear Tech's Comments Sodium 140 (135-145) mmol/L Potassium 4.4 D (3.3-5.1) mmol/L Chloride 110 H (96-108) mmol/L Carbon Dioxide 20 L (22-29) mmol/L Anion Gap 14 (12-20) BUN 15 (9-16) mg/dL Creatinine 0.63 (0.5-1.4) mg/dL Estim Creat Clear Calc 121.5 Estimated GFR > 60 Random Glucose 124 H (60-115) mg/dL Estimat Average Glucose 174 mg/dL Hemoglobin A1c % 7.7 % Calcium 8.9 D (8.4-10.2) mg/dL Magnesium 1.8 (1.6-2.6) mg/dL Total Bilirubin 0.4 (0.0-1.0) mg/dL Direct Bilirubin < 0.2 (0.0-0.5) mg/dL AST 18 D (5-31) U/L ALT 24 (0-31) U/L Alkaline Phosphatase 107 (39-117) U/L Total Protein 6.9 (6.5-8.0) g/dL Albumin 3.9 (3.5-5.0) g/dL Lipase 29 (8-78) U/L Urine Color Urine Appearance Urine pH (5.0-9.0) Ur Specific [place] (1.005-1.025) Urine Protein (Neg-Trace) mg/dL Urine Glucose (UA) (Negative) mg/dL Urine Ketones (Negative) mg/dL Urine Blood (Negative) Urine Nitrite (Negative) Ur Leukocyte Esterase (Negative) Urine RBC (0-2) /HPF Urine WBC (0-5) /HPF Ur Squamous Epith Cells (0-2) /HPF Urine Bacteria (None Seen) Hyaline Casts (0-2) /LPF Influenza Type A (PCR) (Negative) Influenza Type B (PCR) (Negative) RSV RNA Qual (PCR) (Negative) SARS-CoV-2 RNA (RT-PCR) (Negative) Discharge Plan Discharge Clinical Impression: Bronchitis Patient Disposition: Home, Self-Care Instructions: Acute Bronchitis (ED) Prescriptions: New (DME) nebulizers [AeroEclipse II Nebulizer] Misc See Rx Instructions .ROUTE .MEDSUPPLY Qty: 1 0RF Rx Instructions: As directed albuterol sulfate 0.63 mg/3 mL solution for nebulization 0.63 mg inhalation QID PRN (Reason: shortness of breath or wheezing) Qty: 75 0RF albuterol sulfate 90 mcg/actuation HFA aerosol inhaler 1 inh inhalation QID PRN (Reason: shortness of breath or wheezing) Qty: 8.5 0RF prednisone 20 mg tablet 40 mg PO DAILY 5 Days Qty: 10 0RF codeine-guaifenesin [Guaifenesin AC] 10-100 mg/5 mL liquid 5 ml PO Q6H PRN (Reason: cold symptoms) Qty: 120 0RF No Action cyclobenzaprine 10 mg tablet 10 mg PO TID PRN (Reason: muscle spasm) Qty: 14 0RF ondansetron 4 mg tablet,disintegrating 4 mg PO Q8H PRN (Reason: nausea and vomiting) Qty: 20 0RF omeprazole 40 mg capsule,delayed release(DR/EC) 40 mg PO DAILY 30 Days Qty: 30 0RF Robitussin Cough and Cold CF 2.5-5-50 mg/5 mL liquid 20 ml PO Q4H PRN (Reason: cough) Qty: 118 0RF naproxen [Naprosyn] 500 mg tablet 500 mg PO BID Qty: 20 0RF loperamide [Imodium A-D] 2 mg tablet 2 mg PO Q6H PRN (Reason: loose stool) Qty: 20 0RF hydrocodone-homatropine [Hycodan] 5-1.5 mg/5 mL (5 mL) syrup 5 ml PO Q6H PRN (Reason: cough) Qty: 60 0RF Rx Instructions: Partial Fill upon patient request. ondansetron HCl [Zofran] 4 mg tablet 4 mg PO Q8H PRN (Reason: nausea and vomiting) Qty: 10 0RF benzonatate [Tessalon Perles] 100 mg capsule 100 mg PO TID PRN (Reason: cough) 5 Days Qty: 20 0RF ibuprofen 400 mg tablet 400 mg PO Q6H PRN (Reason: pain) Qty: 20 0RF cyclobenzaprine 10 mg tablet 10 mg PO TID PRN (Reason: muscle spasm) 7 Days Qty: 21 0RF azithromycin 250 mg tablet 250 mg PO DAILY 6 Days Qty: 6 0RF Rx Instructions: start on day 2 of therapy prednisone 20 mg tablet 40 mg PO DAILY Qty: 10 0RF benzonatate 200 mg capsule 200 mg PO TID PRN (Reason: cough) Qty: 20 0RF azithromycin 250 mg tablet See Rx Instructions .ROUTE .COMPLEX Qty: 6 0RF Rx Instructions: take 500 mg today (day 1), then 250 mg for 4 days (days 2-5) benzonatate 100 mg capsule 100 mg PO TID PRN (Reason: cough) Qty: 14 0RF [id number] [Fioricet] 50-300-40 mg capsule 1 cap PO Q4-6H PRN (Reason: headache) Qty: 14 0RF Referrals: Physician,Nonstaff [Primary Care Provider] - (your pcp) Interventions: ED Discharge Assessment Last Done: 06/23/22 13:42 Discharge Date/Time: 06/23/22 13:42
[2022-06-23 11:45] LABS: Hemoglobin 13.6 g/dl (12.0-16.0); Imm Gran Abs Auto 0.02 X10*3/uL (0.00-0.03); Imm Gran Pct Auto 0.3 % (0.0-0.4); MANUAL DIFF FLAG SCAN; PLT CLUMP 1; Red Cell Distribution Width 12.8 % (11.0-16.0); SCAN SMEAR FLAG 1
[2022-06-23 11:47] LABS: Basophils Percent Auto 0.6 % (0-2); Eosinophils Absolute Auto 0.4 X10*3/uL (0.0-0.4); Eosinophils Percent Auto 6.3 % (0-4); Hematocrit 40.5 % (37.0-47.0); Lymphocytes Absolute Auto 2.1 X10*3/uL (1.2-4.9); Lymphocytes Percent Auto 30.8 % (20-40); Mean Corpuscular HGB Conc 33.6 g/dl (31.0-35.0); Mean Corpuscular Hemoglobin 28.2 pg (27.0-33.0); Mean Platelet Volume 11.6 fL (9.4-12.3); Monocytes Absolute Auto 0.3 X10*3/uL (0.1-1.2); Monocytes Percent Auto 5.1 % (2-11); Neutrophils Absolute Auto 3.8 x10*3/uL (2.0-8.3); Neutrophils Percent Auto 56.9 % (45-73); Red Blood Count 4.82 X10*6/uL (4.20-5.50); White Blood Count 6.7 X10*3/uL (4.8-10.8)
[2022-06-23 11:55] LABS: Alanine Aminotransferase 24 U/L (0-31); Albumin Level 3.9 g/dL (3.5-5.0); Alkaline Phosphatase 107 U/L (39-117); Anion Gap 14 (12-20); Aspartate Amino Transferase 18 U/L (5-31); Bilirubin Direct < 0.2 mg/dL (0.0-0.5); Bilirubin Total 0.4 mg/dL (0.0-1.0); Blood Urea Nitrogen 15 mg/dL (9-16); Calcium 8.9 mg/dL (8.4-10.2); Carbon Dioxide 20 mmol/L (22-29); Chloride 110 mmol/L (96-108); Creatinine Clr Calc Pharmacy 121.5; Estimated Glomerular Filt Rate > 60; Glucose Random 124 mg/dL (60-115); Lipase 29 U/L (8-78); Potassium 4.4 mmol/L (3.3-5.1); Sodium 140 mmol/L (135-145); Total Protein 6.9 g/dL (6.5-8.0)
[2022-06-23 12:04] LABS: SLIDE REVIEW VERIFIED
[2022-06-23 12:26] LABS: Estimated Average Glucose 174 mg/dL; Hemoglobin A1c % 7.7 %
[2022-06-23 12:29] LABS: Magnesium 1.8 mg/dL (1.6-2.6)
[2022-06-23] MEDS: Ibuprofen 800 MG TABLET PO (12:32)
[2022-06-23] MEDS: guaiFEN/Codeine SF 200/20/10ML 10 ML LIQUID PO (12:32)
[2022-06-23] MEDS: predniSONE 20 MG TABLET 60 MG PO (12:32)
--- NOTE | 2022-06-23 12:41 | ED.GENADULT ---
HPI - General Adult General Chief complaint: General Medical Stated complaint: not feeling well, sob, coughing Time Seen by Provider: 06/23/22 11:45 Source: patient Mode of arrival: ambulatory Limitations: no limitations History of Present Illness HPI narrative: Patient is a 51 year old the past medical history of asthma, HTN, and diabetes who presents to the ED today with anorexia, ear pain, rhinorrhea, headache, cough, SOB, and diarrhea for the last 4 days. She states that prior to her symptoms started when she went on the women's retreat in [place] were several of the members and the person she traveled with were having similar symptoms. She also reports decreased p.o. intake since the onset of her symptoms. She has had similar symptoms in the past resulting in a diagnosis of ?walking pneumonia. ? She denies any fevers, chills, chest pain, abdominal pain, nausea, vomiting, urinary symptoms, blood in her stool, and calf pain. She is up-to-date on all her vaccines including COVID x4. Onset (ago): day(s) (4) Associated symptoms: shortness of breath Treatments prior to arrival: none Related Data Previous Rx's Medication Instructions Recorded cyclobenzaprine 10 mg tablet 10 mg PO TID PRN muscle spasm #14 07/29/20 tabs ondansetron 4 mg disintegrating 4 mg PO Q8H PRN nausea and 07/29/20 tablet vomiting #20 tabs benzonatate 100 mg capsule 100 mg PO TID PRN cough 5 days #20 05/22/21 (Tessalon Perles) caps ibuprofen 400 mg tablet 400 mg PO Q6H PRN pain #20 tabs 05/22/21 ondansetron HCl 4 mg tablet 4 mg PO Q8H PRN nausea and 05/22/21 (Zofran) vomiting #10 tabs omeprazole 40 mg capsule,delayed 40 mg PO DAILY 30 days #30 caps 05/31/21 release naproxen 500 mg tablet (Naprosyn) 500 mg PO BID #20 tabs 07/16/21 [id number] 2.5 20 ml PO Q4H PRN cough #118 mL 07/16/21 mg-5 mg-50 mg/5 mL oral liquid (Robitussin Cough and Cold CF) cyclobenzaprine 10 mg tablet 10 mg PO TID PRN muscle spasm 7 12/31/21 days #21 tabs azithromycin 250 mg tablet 250 mg PO DAILY 6 days #6 tabs 02/01/22 benzonatate 200 mg capsule 200 mg PO TID PRN cough #20 caps 02/01/22 prednisone 20 mg tablet 40 mg PO DAILY #10 tabs 02/01/22 hydrocodone-homatropine 5 mg-1.5 5 ml PO Q6H PRN cough #60 mL 03/01/22 mg/5 mL (5 mL) oral syrup (Hycodan) loperamide 2 mg tablet (Imodium 2 mg PO Q6H PRN loose stool #20 03/01/22 A-D) tabs azithromycin 250 mg tablet See Rx Instructions PO .COMPLEX #6 05/16/22 tabs benzonatate 100 mg capsule 100 mg PO TID PRN cough #14 caps 05/16/22 [id number] 1 cap PO Q4-6H PRN headache #14 05/16/22 50 mg-300 mg-40 mg capsule caps (Fioricet) albuterol sulfate 0.63 mg/3 mL 0.63 mg (3 mL) inhalation QID PRN 06/23/22 solution for nebulization shortness of breath or wheezing #75 mL albuterol sulfate 90 mcg/actuation 1 inh inhalation QID PRN shortness 06/23/22 aerosol inhaler of breath or wheezing #8.5 grams codeine 10 mg-guaifenesin 100 mg/5 5 ml PO Q6H PRN cold symptoms #120 06/23/22 mL oral liquid (Guaifenesin AC) mL nebulizers (AeroEclipse II #1 ea 06/23/22 Nebulizer) prednisone 20 mg tablet 40 mg PO DAILY rash 5 days #10 tabs 06/23/22 Allergies Allergy/AdvReac Type Severity Reaction Status Date / Time aspirin [ASA] Allergy Intermediate HIVES Verified 06/23/22 09:50 soybean [SOYBEAN] Allergy Intermediate RASH Verified 06/23/22 09:50 Review of Systems Review of Systems: Constitutional : Positive anorexia. No Weight loss, No Fever, No Chills, No Night Sweats, No Fatigue, No Malaise ENT/Mouth : Positive L ear pain, positive rhinorrhea. No Hearing loss, No Nasal Congestion, No Sinus Pain, No Hoarseness, No sore throat, No Swallowing Difficulty Eyes: No Eye Pain, No Swelling, No Redness, No Foreign Body, No Discharge, No Vision Changes Cardiovascular : + SOB, no Dyspnea on Exertion, No Orthopnea, No Edema, No extremity swelling, No Palpitations Respiratory : + Cough, No Sputum, No Wheezing, No Dyspnea Gastrointestinal : + Diarrhea. No Nausea, No Vomiting, No abdominal Pain, No Hematochezia, No Melena Genitourinary : No irregular bleeding, No Dysuria, No Urinary Frequency, No Hematuria, No Urinary Incontinence, No Urgency, No Flank Pain, No Urinary Flow Changes, No Hesitancy Musculoskeletal : No joint pain, No Myalgias, No Joint Swelling Skin : No Skin Lesions, No rash Neuro : Positive headache. No Weakness, No Numbness, No Paresthesias, No Loss of Consciousness, No Dizziness, Psych : No Anxiety/Panic, No Depression, No SI/HI/AH/VH Heme/Lymph: No Bruising, No Bleeding,No Lymphadenopathy Endocrine : No Polyuria, No Polydipsia, No Temperature Intolerance Yes all other systems are reviewed and are negative [facility] Past Medical History Attestation statement: The following information was validated with the patient. Source: old records reviewed, obtained from family and nursing notes reviewed Medical History (Updated 06/23/22 @ 13:26 by NOBLE Hernandez) Asthma HTN (hypertension) Kidney stones Surgical History H/O gastric bypass Hx of cholecystectomy Social History Social History Alcohol intake: former Patient Tobacco Use Status: Never used Tobacco Advance Directives: No Physical Exam ED Vital Signs: Vital Signs - 24 hr 06/23/22 09:50 Temperature 98.0 F Pulse Rate 63 Respiratory Rate 18 Blood Pressure 148/77 H Pulse Oximetry 97 Oxygen Delivery Method Room Air BMI result Body Mass Index 39.4 vital signs have been reviewed as normal and appeared to be correct. Blood pressure normal. Heart rate normal. Respiration rate normal. Temperature normal. Oxygen saturation normal. Appearance: Alert. Oriented X3. No acute distress. Patient lying in bed comfortably actively coughing. Head: Normal external exam. Normocephalic. Atraumatic. Eyes: PERRLA. EOMI. Conjunctiva and sclera normal. Eyelids normal. ENT: EAC normal. Left TM mildly bulging without erythema or exudate. Right TM normal. Pharynx normal. Uvula midline. Moist mucous membranes. No lesions/ulcerations or masses noted on the tongue. Normal voice. No trismus noted. No drooling noted. No muffled voice noted. Neck: Normal inspection. Neck supple. FROM. No meningeal signs. No neck mass noted. No signs of trauma noted. CVS: Normal heart rate and rhythm. Heart sound normal. Pulses normal throughout. No murmurs/rales/gallops. Respiratory: No respiratory distress. Painless inspiration. Breath sounds normal. No wheezes/rales/rhonchi noted. Chest nontender. No accessory muscle usage noted or decreased air movement noted. No signs of trauma. Abdomen: Soft and nontender. Bowel sounds normal in all 4 quadrants. No distention noted. No organomegaly noted. No visible injury noted. Back: No CVA tenderness. Full range of motion noted. Nontender. Skin: Skin warm and dry. Normal skin color. Normal skin turgor. No rashes/lesions/lacerations noted. Extremities: No lower extremity edema. No calf tenderness is noted. Extremities exhibit normal range of motion and nontender. Neuro: Oriented X 3. No focal neuro deficits noted. Vascular: +2 radial pulses. Normal cap refill. Course Course Course Narrative: Patient is a 51-year-old female with a past medical history of asthma, HTN, and diabetes who presents to the ED today with anorexia, ear pain, rhinorrhea, headache, cough, SOB, and diarrhea for the last 4 days. he states that prior to her symptoms started when she went on the women's retreat in [place] were several of the members and the person she traveled with were having similar symptoms. She also reports decreased p.o. intake since the onset of her symptoms. Patient currently afebrile, otherwise vital signs within normal limits. Left TM mildly bulging, without erythema or exudate. Exam otherwise benign. Patient recently traveled by car to [place], denies any other recent travel, hemoptysis, immobility, recent surgeries, hypercoagulable conditions, recent injury, previous history of PE/DVT. PERC score of 1 given age, PE/DVT considered but unlikely given negative Virchow's and patient without tachypnea, tachycardia, hypoxia, calf pain/tenderness. Likely viral syndrome, possible PNA. Will order CBC, CMP, coags, UA, EKG, CXR, COVID/flu/RSV for infectious workup. Will order Robitussin A-C, prednisone, ibuprofen for symptoms and will reassess. Reevaluation(s) Reevaluation #1: CBC, coags within normal limits. COVID/influenza/RSV all negative. CMP remarkable for chloride of 110, CO2 of 20, and random glucose of 124. Otherwise within normal limits. UA remarkable for glucose of 250 and 1+ leukocyte esterase, otherwise within normal limits. Will also check magnesium, lipase, A1c. Time: 13:02 Reevaluation #2: Lipase, magnesium within normal limits. A1c today is 7.7. Patient tells me she is currently taking metformin. Discussed her elevated A1c and glucose in her urine and advise she see her PCP for medication adjustment as her diabetes is not being well controlled. Patient stable for discharge. We will treat for bronchitis with doxy, Robitussin AC, albuterol inhaler, nebulizer/albuterol treatments, and prednisone. Advised follow-up with PCP in next 2-3 days. Discussed worrisome signs and symptoms and to return to ED if these occur. Time: 13:23 Medications Administered Discontinued Medications Generic Name Dose Route Start Last Admin Trade Name Erma PRN Reason Stop Dose Admin Albuterol Sulfate 2 puff 06/23/22 12:25 06/23/22 13:27 Albuterol Sulfate 90 Mcg 8 Gm Inhaler INHALE 06/23/22 12:26 2 puff ONCE ONE Administration Doxycycline Hyclate 100 mg 06/23/22 12:25 06/23/22 12:31 Doxycycline Hyclate 100 Mg Tablet PO 06/23/22 12:26 100 mg ONCE ONE Administration Guaifenesin/Codeine Phosphate 10 ml 06/23/22 12:25 06/23/22 12:32 Guaifen/Codeine Sf 200/20/10ml 10 Ml Liquid PO 06/23/22 12:26 10 ml ONCE ONE Administration Ibuprofen 800 mg 06/23/22 12:25 06/23/22 12:32 Ibuprofen 800 Mg Tablet PO 06/23/22 12:26 800 mg ONCE ONE Administration Prednisone 60 mg 06/23/22 12:25 06/23/22 12:32 Prednisone 20 Mg Tablet PO 06/23/22 12:26 60 mg ONCE ONE Administration Medical Decision Making Lab Data Lab results reviewed: Yes I reviewed the patient's lab results. Result diagrams: 06/23/22 11:14 06/23/22 11:14 Labs: Lab Results 06/23/22 06/23/22 06/23/22 Range/Units 09:56 10:04 11:14 WBC 6.7 (4.8-10.8) X10*3/uL RBC 4.82 (4.20-5.50) X10*6/uL Hgb 13.6 (12.0-16.0) g/dl Hct 40.5 (37.0-47.0) % MCV 84.0 (80.0-98.0) fL MCH 28.2 (27.0-33.0) pg MCHC 33.6 (31.0-35.0) g/dl RDW 12.8 (11.0-16.0) % Plt Count [employer] MPV 11.6 (9.4-12.3) fL Immature Gran % (Auto) 0.3 (0.0-0.4) % Neut % (Auto) 56.9 (45-73) % Lymph % (Auto) 30.8 (20-40) % [place] % (Auto) 5.1 (2-11) % Eos % (Auto) 6.3 H (0-4) % Baso % (Auto) 0.6 (0-2) % Lymph # (Auto) 2.1 (1.2-4.9) X10*3/uL [place] # (Auto) 0.3 (0.1-1.2) X10*3/uL Eos # (Auto) 0.4 (0.0-0.4) X10*3/uL Baso # (Auto) 0.0 (0.0-0.2) X10*3/uL Abs Immat Gran (auto) 0.02 (0.00-0.03) X10*3/uL Absolute Neuts (auto) 3.8 (2.0-8.3) x10*3/uL Absolute Nucleated RBC 0.000 (0.0-0.012) X10*3/uL Nucleated RBC % (auto) 0.0 (0.0-0.2) /100WBC Smear Tech's Comments VERIFIED Sodium (135-145) mmol/L Potassium (3.3-5.1) mmol/L Chloride (96-108) mmol/L Carbon Dioxide (22-29) mmol/L Anion Gap (12-20) BUN (9-16) mg/dL Creatinine (0.5-1.4) mg/dL Estim Creat Clear Calc Estimated GFR Random Glucose (60-115) mg/dL Estimat Average Glucose mg/dL Hemoglobin A1c % % Calcium (8.4-10.2) mg/dL Magnesium (1.6-2.6) mg/dL Total Bilirubin (0.0-1.0) mg/dL Direct Bilirubin (0.0-0.5) mg/dL AST (5-31) U/L ALT (0-31) U/L Alkaline Phosphatase (39-117) U/L Total Protein (6.5-8.0) g/dL Albumin (3.5-5.0) g/dL Lipase (8-78) U/L Urine Color Yellow Urine Appearance Clear Urine pH 5.5 (5.0-9.0) Ur Specific [place] >= 1.030 H (1.005-1.025) Urine Protein Negative (Neg-Trace) mg/dL Urine Glucose (UA) 250 H (Negative) mg/dL Urine Ketones Trace (Negative) mg/dL Urine Blood Negative (Negative) Urine Nitrite Negative (Negative) Ur Leukocyte Esterase Small (1+) H (Negative) Urine RBC 0-2 (0-2) /HPF Urine WBC 0-5 (0-5) /HPF Ur Squamous Epith Cells 3-5 (0-2) /HPF Urine Bacteria None Seen (None Seen) Hyaline Casts 0-2 (0-2) /LPF Influenza Type A (PCR) NEGATIVE (Negative) Influenza Type B (PCR) NEGATIVE (Negative) RSV RNA Qual (PCR) NEGATIVE (Negative) SARS-CoV-2 RNA (RT-PCR) NEGATIVE (Negative) 06/23/22 06/23/22 Range/Units 11:14 11:14 WBC (4.8-10.8) X10*3/uL RBC (4.20-5.50) X10*6/uL Hgb (12.0-16.0) g/dl Hct (37.0-47.0) % MCV (80.0-98.0) fL MCH (27.0-33.0) pg MCHC (31.0-35.0) g/dl RDW (11.0-16.0) % Plt Count MPV (9.4-12.3) fL Immature Gran % (Auto) (0.0-0.4) % Neut % (Auto) (45-73) % Lymph % (Auto) (20-40) % [place] % (Auto) (2-11) % Eos % (Auto) (0-4) % Baso % (Auto) (0-2) % Lymph # (Auto) (1.2-4.9) X10*3/uL [place] # (Auto) (0.1-1.2) X10*3/uL Eos # (Auto) (0.0-0.4) X10*3/uL Baso # (Auto) (0.0-0.2) X10*3/uL Abs Immat Gran (auto) (0.00-0.03) X10*3/uL Absolute Neuts (auto) (2.0-8.3) x10*3/uL Absolute Nucleated RBC (0.0-0.012) X10*3/uL Nucleated RBC % (auto) (0.0-0.2) /100WBC Smear Tech's Comments Sodium 140 (135-145) mmol/L Potassium 4.4 D (3.3-5.1) mmol/L Chloride 110 H (96-108) mmol/L Carbon Dioxide 20 L (22-29) mmol/L Anion Gap 14 (12-20) BUN 15 (9-16) mg/dL Creatinine 0.63 (0.5-1.4) mg/dL Estim Creat Clear Calc 121.5 Estimated GFR > 60 Random Glucose 124 H (60-115) mg/dL Estimat Average Glucose 174 mg/dL Hemoglobin A1c % 7.7 % Calcium 8.9 D (8.4-10.2) mg/dL Magnesium 1.8 (1.6-2.6) mg/dL Total Bilirubin 0.4 (0.0-1.0) mg/dL Direct Bilirubin < 0.2 (0.0-0.5) mg/dL AST 18 D (5-31) U/L ALT 24 (0-31) U/L Alkaline Phosphatase 107 (39-117) U/L Total Protein 6.9 (6.5-8.0) g/dL Albumin 3.9 (3.5-5.0) g/dL Lipase 29 (8-78) U/L Urine Color Urine Appearance Urine pH (5.0-9.0) Ur Specific [place] (1.005-1.025) Urine Protein (Neg-Trace) mg/dL Urine Glucose (UA) (Negative) mg/dL Urine Ketones (Negative) mg/dL Urine Blood (Negative) Urine Nitrite (Negative) Ur Leukocyte Esterase (Negative) Urine RBC (0-2) /HPF Urine WBC (0-5) /HPF Ur Squamous Epith Cells (0-2) /HPF Urine Bacteria (None Seen) Hyaline Casts (0-2) /LPF Influenza Type A (PCR) (Negative) Influenza Type B (PCR) (Negative) RSV RNA Qual (PCR) (Negative) SARS-CoV-2 RNA (RT-PCR) (Negative) Imaging Data Chest x-ray: My impression: No acute cardiopulmonary findings. Radiologist's impression: EXAMINATION: XR CHEST CLINICAL INFORMATION: Cough, upper respiratory symptoms. COMPARISON: 05/16/2022 chest radiograph. TECHNIQUE: Frontal view of the chest was obtained. FINDINGS: No significant abnormality is noted involving the heart, lungs, mediastinum, bony thorax or soft tissues. XR/XR chest 1V IMPRESSION: No acute cardiopulmonary process. ? Dictated By: Harpal Feldman MD Signed By: <Electronically signed by Harpal Feldman MD in OV> Discharge Plan Discharge Clinical Impression: Bronchitis Patient Disposition: Home, Self-Care Instructions: Acute Bronchitis (ED) Prescriptions: New (DME) nebulizers [AeroEclipse II Nebulizer] Misc See Rx Instructions .ROUTE .MEDSUPPLY Qty: 1 0RF Rx Instructions: As directed albuterol sulfate 0.63 mg/3 mL solution for nebulization 0.63 mg inhalation QID PRN (Reason: shortness of breath or wheezing) Qty: 75 0RF albuterol sulfate 90 mcg/actuation HFA aerosol inhaler 1 inh inhalation QID PRN (Reason: shortness of breath or wheezing) Qty: 8.5 0RF prednisone 20 mg tablet 40 mg PO DAILY 5 Days Qty: 10 0RF codeine-guaifenesin [Guaifenesin AC] 10-100 mg/5 mL liquid 5 ml PO Q6H PRN (Reason: cold symptoms) Qty: 120 0RF No Action cyclobenzaprine 10 mg tablet 10 mg PO TID PRN (Reason: muscle spasm) Qty: 14 0RF ondansetron 4 mg tablet,disintegrating 4 mg PO Q8H PRN (Reason: nausea and vomiting) Qty: 20 0RF omeprazole 40 mg capsule,delayed release(DR/EC) 40 mg PO DAILY 30 Days Qty: 30 0RF Robitussin Cough and Cold CF 2.5-5-50 mg/5 mL liquid 20 ml PO Q4H PRN (Reason: cough) Qty: 118 0RF naproxen [Naprosyn] 500 mg tablet 500 mg PO BID Qty: 20 0RF loperamide [Imodium A-D] 2 mg tablet 2 mg PO Q6H PRN (Reason: loose stool) Qty: 20 0RF hydrocodone-homatropine [Hycodan] 5-1.5 mg/5 mL (5 mL) syrup 5 ml PO Q6H PRN (Reason: cough) Qty: 60 0RF Rx Instructions: Partial Fill upon patient request. ondansetron HCl [Zofran] 4 mg tablet 4 mg PO Q8H PRN (Reason: nausea and vomiting) Qty: 10 0RF benzonatate [Tessalon Perles] 100 mg capsule 100 mg PO TID PRN (Reason: cough) 5 Days Qty: 20 0RF ibuprofen 400 mg tablet 400 mg PO Q6H PRN (Reason: pain) Qty: 20 0RF cyclobenzaprine 10 mg tablet 10 mg PO TID PRN (Reason: muscle spasm) 7 Days Qty: 21 0RF azithromycin 250 mg tablet 250 mg PO DAILY 6 Days Qty: 6 0RF Rx Instructions: start on day 2 of therapy prednisone 20 mg tablet 40 mg PO DAILY Qty: 10 0RF benzonatate 200 mg capsule 200 mg PO TID PRN (Reason: cough) Qty: 20 0RF azithromycin 250 mg tablet See Rx Instructions .ROUTE .COMPLEX Qty: 6 0RF Rx Instructions: take 500 mg today (day 1), then 250 mg for 4 days (days 2-5) benzonatate 100 mg capsule 100 mg PO TID PRN (Reason: cough) Qty: 14 0RF pfqnnjitgq-yftmzdyxrgfmf-scba [Fioricet] 50-300-40 mg capsule 1 cap PO Q4-6H PRN (Reason: headache) Qty: 14 0RF Referrals: Physician,Nonstaff [Primary Care Provider] - (your pcp) Interventions: ED Discharge Assessment Last Done: 06/23/22 13:42 Discharge Date/Time: 06/23/22 13:42
[2022-06-23] MEDS: Albuterol Sulfate 90 MCG 8 GM INHALER 2 PUFF INHALE (13:27)
== END 2022-06-23 13:42 | disposition home or self-care (01) ==
PROVIDERS: Physician Assistant Medical; Emergency Provider Emergency Medicine Emergency Medical Services
DX: J40 Bronchitis, not specified as acute or chronic (principal); R06.02 Shortness of breath; Z20.822 Contact with and (suspected) exposure to COVID-19; I10 Essential (primary) hypertension; E11.9 Type 2 diabetes mellitus without complications; Z79.899 Other long term (current) drug therapy
CPT/HCPCS: 0241U; 36415; 71045; 80048; 80076; 81001; 83036; 83690; 83735; 85025; 87086; 94640; 99284

== ENCOUNTER 2022-10-25 10:59 | Emergency (ER) | payer MEDICARE, SELFPAY ==
--- NOTE | ~2022-10-25 | XR_ITS ---
EXAMINATION: XR CHEST CLINICAL INFORMATION: Cough and chills COMPARISON: 06/23/2022 TECHNIQUE: 2 views of the chest were obtained. FINDINGS: The lungs are well expanded. There is no focal consolidation, edema, or effusion. No pneumothorax. The cardiomediastinal silhouette is within normal limits. No acute osseous abnormality. XR/XR chest 2V IMPRESSION: Clear lungs.
[2022-10-25 11:02] VITALS: BP 139/89; PULSE 76; RESP 18; TEMP 37; O2SAT 96; BMI 40.7
[2022-10-25 12:28] LABS: Appearance Urine Clear; Color Urine Yellow; Glucose Urine UA Negative (Negative); Leukocyte Esterase Urine Trace (Negative); Nitrite Urine Negative (Negative); PH 6.5 (5.0-9.0); UMIC TRIGGER UACC YES; Urine Blood Negative (Negative); Urine Ketones Negative (Negative); Urine Protein Negative (Neg-Trace)
[2022-10-25 12:33] LABS: Bacteria Urine None Seen (None Seen); Hyaline Casts Urine 0-2 /LPF (0-2); IDNOW Serial# 6674DD1D; RBC Urine 0-2 /HPF (0-2); Squamous Epithelial Cell Urine 0-2 /HPF (0-2); Strep A Nucleic Acid Negative (Negative); WBC Urine 0-5 /HPF (0-5)
[2022-10-25 12:49] LABS: Influenza A PCR NEGATIVE (Negative); Influenza B PCR NEGATIVE (Negative); Resp Syncy Virus RNA Qual PCR NEGATIVE (Negative); SARS COV2 PCR INHOUSE NEGATIVE (Negative)
--- NOTE | 2022-10-25 13:01 | ED_ITS ---
HPI - URI/Sore Throat General Chief Complaint: Upper Respiratory Symptoms Stated Complaint: chills, coughing,L eye pain Time Seen by Provider: 10/25/22 11:57 Source: patient and family Mode of arrival: ambulatory Limitations: no limitations History of Present Illness HPI Narrative: 51-year-old female presenting to the ER with URI complaints which started on Monday which include subjective fevers, chills, fatigue, malaise, body aches, sore throat, nasal congestion/rhinorrhea and a dry cough. Reports that she had a positive COVID test on Monday then she took another 1 the next day which was negative therefore she is unsure if she is positive for negative for COVID. She reports that she also woke up today with her left lower lid swollen with redness. She denies any fevers, dizziness or headaches, change in vision, inability to move the eyes or pain when she moves her eyes, recent falls or trauma, trouble swallowing or breathing, chest pain or shortness of breath, wheezing, dyspnea on exertion, orthopnea palpitations, paresthesias, nausea/vomiting/diarrhea constipation, black or bloody stools, abdominal pain, lower extremity edema or calf tenderness, recent travel or sick contacts or any other symptoms complaints or concerns at this time. MD elicited complaint: cough, sore throat, rhinorrhea and nasal congestion Onset (ago): day(s) (3 days for URI symptoms today her eye symptoms started) Consistency: constant and progressively worsening Severity: moderate Description of mucous: clear, watery and yellow Able to tolerate fluids by mouth: Yes Exacerbating factors: swallowing Relieving factors: nothing Associated symptoms: chills, myalgias, rhinorrhea, nasal congestion, sore throat and cough Treatments prior to arrival: none Related Data Previous Rx's Medication Instructions Recorded cyclobenzaprine 10 mg tablet 10 mg PO TID PRN muscle spasm #14 07/29/20 tabs ondansetron 4 mg disintegrating 4 mg PO Q8H PRN nausea and 07/29/20 tablet vomiting #20 tabs benzonatate 100 mg capsule 100 mg PO TID PRN cough 5 days #20 05/22/21 (Asael Rand) caps ibuprofen 400 mg tablet 400 mg PO Q6H PRN pain #20 tabs 05/22/21 ondansetron HCl 4 mg tablet 4 mg PO Q8H PRN nausea and 05/22/21 (Zofran) vomiting #10 tabs omeprazole 40 mg capsule,delayed 40 mg PO DAILY 30 days #30 caps 05/31/21 release naproxen 500 mg tablet (Naprosyn) 500 mg PO BID #20 tabs 07/16/21 myvfbekhclvyb-VZ-aqcurjpkppd 2.5 20 ml PO Q4H PRN cough #118 mL 07/16/21 mg-5 mg-50 mg/5 mL oral liquid (Robitussin Cough and Cold CF) cyclobenzaprine 10 mg tablet 10 mg PO TID PRN muscle spasm 7 12/31/21 days #21 tabs azithromycin 250 mg tablet 250 mg PO DAILY 6 days #6 tabs 02/01/22 benzonatate 200 mg capsule 200 mg PO TID PRN cough #20 caps 02/01/22 prednisone 20 mg tablet 40 mg PO DAILY #10 tabs 02/01/22 hydrocodone-homatropine 5 mg-1.5 5 ml PO Q6H PRN cough #60 mL 03/01/22 mg/5 mL (5 mL) oral syrup (Hycodan) loperamide 2 mg tablet (Imodium 2 mg PO Q6H PRN loose stool #20 03/01/22 A-D) tabs azithromycin 250 mg tablet See Rx Instructions PO .COMPLEX #6 05/16/22 tabs benzonatate 100 mg capsule 100 mg PO TID PRN cough #14 caps 05/16/22 givtueyiob-ntcxbemyngltc-pwcihkha 1 cap PO Q4-6H PRN headache #14 05/16/22 50 mg-300 mg-40 mg capsule caps (Fioricet) albuterol sulfate 0.63 mg/3 mL 0.63 mg (3 mL) inhalation QID PRN 06/23/22 solution for nebulization shortness of breath or wheezing #75 mL albuterol sulfate 90 mcg/actuation 1 inh inhalation QID PRN shortness 06/23/22 aerosol inhaler of breath or wheezing #8.5 grams codeine 10 mg-guaifenesin 100 mg/5 5 ml PO Q6H PRN cold symptoms #120 06/23/22 mL oral liquid (Guaifenesin AC) mL nebulizers (AeroEclipse II #1 ea 06/23/22 Nebulizer) prednisone 20 mg tablet 40 mg PO DAILY rash 5 days #10 tabs 06/23/22 cephalexin 500 mg capsule 500 mg PO BID 10 days #20 caps 10/25/22 doxycycline monohydrate 100 mg 100 mg PO BID 10 days #20 tabs 10/25/22 tablet Allergies Allergy/AdvReac Type Severity Reaction Status Date / Time aspirin [ASA] Allergy Intermediate HIVES Verified 06/23/22 09:50 soybean [SOYBEAN] Allergy Intermediate RASH Verified 06/23/22 09:50 Review of Systems Review of Systems: Constitutional : No Weight loss, No Fever, + Chills, No Night Sweats, + Fatigue, + Malaise ENT/Mouth : No Hearing loss, No Ear Pain, + Nasal Congestion, No Sinus Pain, No Hoarseness, + sore throat, + Rhinorrhea, No Swallowing Difficulty Eyes: + left lower eyelid swelling/redness, No Eye Pain, No Swelling, No eye Redness, No Foreign Body, No Discharge, No Vision Changes Cardiovascular : No Chest Pain, No SOB, No Dyspnea on Exertion, No Orthopnea, No Edema, No Palpitations Respiratory : + Cough, No Sputum, No Wheezing, No Smoke Exposure, No Dyspnea Gastrointestinal : No Nausea, No Vomiting, No Diarrhea, No Constipation, No abdominal Pain, No Hematochezia, No Melena Genitourinary : no irregular bleeding, No Dysuria, No Urinary Frequency, No Hematuria, No Urinary Incontinence, No Urgency, No Flank Pain, No Urinary Flow Changes, No Hesitancy Musculoskeletal : No joint pain, + Myalgias, No Joint Swelling Skin : No Skin Lesions, No rash Neuro : No Weakness, No Numbness, No Paresthesias, No Loss of Consciousness, No Dizziness, No Headache Psych : No Anxiety/Panic, No Depression, No SI/HI/AH/VH, No Social Issues, Heme/Lymph: No Bruising, No Bleeding,No Lymphadenopathy Endocrine : No Polyuria, No Polydipsia, No Temperature Intolerance Yes all other systems are reviewed and are negative [facility] Past Medical History Attestation statement: The following information was validated with the patient. Source: old records reviewed, obtained from family and nursing notes reviewed Medical History Asthma HTN (hypertension) Kidney stones Surgical History H/O gastric bypass Hx of cholecystectomy Social History Social History Alcohol intake: former Patient Tobacco Use Status: Never used Tobacco Advance Directives: No Advance Directives Information Provided: Yes Physical Exam Vital Signs: Vital Signs: Last Vital Signs Temp 98.6 F 10/25/22 11:02 Pulse 76 10/25/22 11:02 Resp 18 10/25/22 11:02 BP 139/89 10/25/22 11:02 Pulse Ox 96 10/25/22 11:02 O2 Del Method 10/25/22 11:02 BMI result Body Mass Index 40.7 Vital signs reviewed. Blood pressure normal. Pulse normal. Respiration normal. Oxygen normal. Temperature normal. Appearance: Alert. Oriented X3. No acute distress. Head: Normal external exam. Normocephalic. Atraumatic. Eyes: PERRLA. EOMI. Conjunctiva and sclera normal. Right eyelid within normal limits. Left lower eyelid edematous and erythematous warm to touch consistent with periorbital cellulitis. Not consistent with orbital cellulitis. No drainage from the eye. ENT: EAC normal. TM's Normal. Pharynx normal. Uvula midline. Moist mucous membranes. No lesions/ulcerations or masses noted on the tongue. Normal voice. No trismus noted. No drooling noted. No muffled voice noted. Neck: Normal inspection. Neck supple. FROM. No adenopathy. Thyroid Normal. No meningeal signs. CVS: Normal heart rate and rhythm. Heart sound normal. Pulses normal throughout. No murmurs/rales/gallops. Respiratory: No respiratory distress. Painless inspiration. Breath sounds normal. No wheezes/rales/rhonchi noted. Chest nontender. No accessory muscle usage noted or decreased air movement noted. Abdomen: Soft and nontender. Back: Full range of motion noted. Nontender. Skin: Skin warm and dry. Normal skin color. Normal skin turgor. No rashes/lesions/lacerations noted. Extremities: Extremities exhibit normal range of motion and nontender. No lower extremity edema or calf tenderness noted. Neuro: Oriented X 3. No motor deficit. No sensory deficit. Reflexes normal. Normal steady gait. No focal neuro deficits noted. CN's II-XII intact bilaterally? Vascular: + radial pulses. Normal cap refill. No cyanosis noted to upper extremity nails Course Course Course Narrative: On exam patient has periorbital cellulitis. Not consistent with orbital cellulitis. Extraocular movements are intact. Not consistent with conjunctivitis or fracture. She is negative for COVID/RSV/flu and strep. Chest x-ray within normal limits. Patient most likely viral syndrome. Not consistent with bacterial pharyngitis/pneumonia or any other acute processes. Will DC home antibiotics for periorbital cellulitis and instructions return if any new or worsening symptoms to follow up with primary care provider. Patient understands agrees with this plan. Medical Decision Making Lab Data MDM Lab Attestation statement: I reviewed the patient's lab results. Labs: Lab Results 10/25/22 10/25/22 10/25/22 Range/Units 11:07 12:15 12:15 Urine Color Yellow Urine Appearance Clear Urine pH 6.5 (5.0-9.0) Ur Specific [place] 1.010 (1.005-1.025) Urine Protein Negative (Neg-Trace) mg/dL Urine Glucose (UA) Negative (Negative) mg/dL Urine Ketones Negative (Negative) mg/dL Urine Blood Negative (Negative) Urine Nitrite Negative (Negative) Ur Leukocyte Esterase Trace H (Negative) Urine RBC 0-2 (0-2) /HPF Urine WBC 0-5 (0-5) /HPF Ur Squamous Epith Cells 0-2 (0-2) /HPF Urine Bacteria None Seen (None Seen) Hyaline Casts 0-2 (0-2) /LPF Influenza Type A (PCR) NEGATIVE (Negative) Influenza Type B (PCR) NEGATIVE (Negative) RSV RNA Qual (PCR) NEGATIVE (Negative) SARS-CoV-2 RNA (RT-PCR) NEGATIVE (Negative) S. pyogenes GrpA RUBIN Negative (Negative) Independent Interpretation I performed an independent interpretation of an: Plain X-Ray (X-ray reviewed by myself and agree with radiologist's report) Radiology Impression Discussion of test interpretation with radiology: I have reviewed the radiologist's reading. Radiologist Impression: FINDINGS: The lungs are well expanded. There is no focal consolidation, edema, or effusion. No pneumothorax. The cardiomediastinal silhouette is within normal limits. No acute osseous abnormality. XR/XR chest 2V IMPRESSION: Clear lungs. Independent Historian Clinical information obtained from an independent historian. History obtained from or confirmed by: Spouse External Record Review External record reviewed: Inpatient record, Office record, Outpatient record, Prior outpatient labs, Prior outpatient radiology, Primary care record and Outside ED record I reviewed all prior records images and labs that are in our system accessible Prescription Management I considered prescription management with: Antibiotic (Will DC home with antibiotics for periorbital cellulitis) Chronic Conditions Patient?s care impacted by: Hypertension Discharge Plan Discharge Clinical Impression: Upper respiratory infection, Periorbital cellulitis of left eye Patient Disposition: Home, Self-Care Instructions: Upper Respiratory Infection (ED), Periorbital Cellulitis in Adults (ED) Prescriptions: New doxycycline monohydrate 100 mg tablet 100 mg PO BID 10 Days Qty: 20 0RF cephalexin 500 mg capsule 500 mg PO BID 10 Days Qty: 20 0RF No Action cyclobenzaprine 10 mg tablet 10 mg PO TID PRN (Reason: muscle spasm) Qty: 14 0RF ondansetron 4 mg tablet,disintegrating 4 mg PO Q8H PRN (Reason: nausea and vomiting) Qty: 20 0RF omeprazole 40 mg capsule,delayed release(DR/EC) 40 mg PO DAILY 30 Days Qty: 30 0RF Robitussin Cough and Cold CF 2.5-5-50 mg/5 mL liquid 20 ml PO Q4H PRN (Reason: cough) Qty: 118 0RF naproxen [Naprosyn] 500 mg tablet 500 mg PO BID Qty: 20 0RF loperamide [Imodium A-D] 2 mg tablet 2 mg PO Q6H PRN (Reason: loose stool) Qty: 20 0RF hydrocodone-homatropine [Hycodan] 5-1.5 mg/5 mL (5 mL) syrup 5 ml PO Q6H PRN (Reason: cough) Qty: 60 0RF Rx Instructions: Partial Fill upon patient request. ondansetron HCl [Zofran] 4 mg tablet 4 mg PO Q8H PRN (Reason: nausea and vomiting) Qty: 10 0RF benzonatate [Tessalon Perles] 100 mg capsule 100 mg PO TID PRN (Reason: cough) 5 Days Qty: 20 0RF ibuprofen 400 mg tablet 400 mg PO Q6H PRN (Reason: pain) Qty: 20 0RF cyclobenzaprine 10 mg tablet 10 mg PO TID PRN (Reason: muscle spasm) 7 Days Qty: 21 0RF azithromycin 250 mg tablet 250 mg PO DAILY 6 Days Qty: 6 0RF Rx Instructions: start on day 2 of therapy prednisone 20 mg tablet 40 mg PO DAILY Qty: 10 0RF benzonatate 200 mg capsule 200 mg PO TID PRN (Reason: cough) Qty: 20 0RF azithromycin 250 mg tablet See Rx Instructions .ROUTE .COMPLEX Qty: 6 0RF Rx Instructions: take 500 mg today (day 1), then 250 mg for 4 days (days 2-5) benzonatate 100 mg capsule 100 mg PO TID PRN (Reason: cough) Qty: 14 0RF yklgutrznw-nuyaqcycznfld-agic [Fioricet] 50-300-40 mg capsule 1 cap PO Q4-6H PRN (Reason: headache) Qty: 14 0RF (DME) nebulizers [AeroEclipse II Nebulizer] Misc See Rx Instructions .ROUTE .MEDSUPPLY Qty: 1 0RF Rx Instructions: As directed albuterol sulfate 0.63 mg/3 mL solution for nebulization 0.63 mg inhalation QID PRN (Reason: shortness of breath or wheezing) Qty: 75 0RF albuterol sulfate 90 mcg/actuation HFA aerosol inhaler 1 inh inhalation QID PRN (Reason: shortness of breath or wheezing) Qty: 8.5 0RF prednisone 20 mg tablet 40 mg PO DAILY 5 Days Qty: 10 0RF codeine-guaifenesin [Guaifenesin AC] 10-100 mg/5 mL liquid 5 ml PO Q6H PRN (Reason: cold symptoms) Qty: 120 0RF Referrals: Carmen Fernando MD [Primary Care Provider] - 2 days
== END 2022-10-25 13:40 | disposition home or self-care (01) ==
PROVIDERS: Physician Assistant Medical; Emergency Provider Emergency Medicine; PCP Internal Medicine
DX: J06.9 Acute upper respiratory infection, unspecified (principal); L03.213 Periorbital cellulitis; Z20.822 Contact with and (suspected) exposure to COVID-19; Z20.828 Contact with and (suspected) exposure to other viral communicable diseases; I10 Essential (primary) hypertension; Z79.899 Other long term (current) drug therapy
CPT/HCPCS: 0241U; 36415; 71046; 81001; 87651; 99282; 99283

== ENCOUNTER 2022-10-30 08:06 | Emergency (ER) | payer MEDICARE, SELFPAY ==
--- NOTE | ~2022-10-30 | XR_ITS ---
EXAMINATION: XR CHEST CLINICAL INFORMATION: Chest pain with cough. COMPARISON: Most recent chest radiograph dated 10/25/2022. TECHNIQUE: Frontal view of the chest was obtained. FINDINGS: The lungs are clear. The cardiomediastinal silhouette is normal in size. There is no pleural effusion or pneumothorax. No acute osseous abnormality. XR/XR chest 1V IMPRESSION: No acute cardiopulmonary findings.
--- NOTE | 2022-10-30 08:11 | ECG_ITS ---
Test Reason : DYSPNEA Blood Pressure : / mmHG Vent. Rate : 069 BPM Atrial Rate : 069 BPM P-R Int : 186 ms QRS Dur : 090 ms QT Int : 420 ms P-R-T Axes : 039 014 038 degrees QTc Int : 450 ms Normal sinus rhythm Minimal voltage criteria for LVH, may be normal variant ( R in aVL ) Borderline ECG When compared with ECG of 22-OCT-2018 09:44, No significant change was found Referred By: Generic ED Physician Electronically Signed By:Scott Pulido
[2022-10-30 08:13] VITALS: BP 154/58; PULSE 65; RESP 16; TEMP 36.8; O2SAT 99; BMI 40.7
--- NOTE | 2022-10-30 08:33 | ED.GENADULT ---
HPI - General Adult General Chief complaint: Dyspnea Stated complaint: coughing, CP, cant sleep Time Seen by Provider: 10/30/22 08:14 Source: patient Mode of arrival: ambulatory Limitations: no limitations History of Present Illness HPI narrative: 51-year-old female came in for evaluation of chest pain coughing for the past 5 days, patient was seen recently in the emergency department for upper respiratory symptoms, discharge home on bronchodilator, returned today for persistent of coughing with chest pain with coughing, no fever, or chills. Patient's son have similar symptoms of coughing and upper respiratory symptoms. Related Data Previous Rx's Medication Instructions Recorded cyclobenzaprine 10 mg tablet 10 mg PO TID PRN muscle spasm #14 07/29/20 tabs ondansetron 4 mg disintegrating 4 mg PO Q8H PRN nausea and 07/29/20 tablet vomiting #20 tabs benzonatate 100 mg capsule 100 mg PO TID PRN cough 5 days #20 05/22/21 (Tesbakari Rand) caps ibuprofen 400 mg tablet 400 mg PO Q6H PRN pain #20 tabs 05/22/21 ondansetron HCl 4 mg tablet 4 mg PO Q8H PRN nausea and 05/22/21 (Zofran) vomiting #10 tabs omeprazole 40 mg capsule,delayed 40 mg PO DAILY 30 days #30 caps 05/31/21 release naproxen 500 mg tablet (Naprosyn) 500 mg PO BID #20 tabs 07/16/21 lvnvpwchasacm-OF-pnmqckigztg 2.5 20 ml PO Q4H PRN cough #118 mL 07/16/21 mg-5 mg-50 mg/5 mL oral liquid (Robitussin Cough and Cold CF) cyclobenzaprine 10 mg tablet 10 mg PO TID PRN muscle spasm 7 12/31/21 days #21 tabs azithromycin 250 mg tablet 250 mg PO DAILY 6 days #6 tabs 02/01/22 benzonatate 200 mg capsule 200 mg PO TID PRN cough #20 caps 02/01/22 prednisone 20 mg tablet 40 mg PO DAILY #10 tabs 02/01/22 hydrocodone-homatropine 5 mg-1.5 5 ml PO Q6H PRN cough #60 mL 03/01/22 mg/5 mL (5 mL) oral syrup (Hycodan) loperamide 2 mg tablet (Imodium 2 mg PO Q6H PRN loose stool #20 03/01/22 A-D) tabs azithromycin 250 mg tablet See Rx Instructions PO .COMPLEX #6 05/16/22 tabs benzonatate 100 mg capsule 100 mg PO TID PRN cough #14 caps 05/16/22 fefsbzthpb-hrecthvvcipob-fzaampqq 1 cap PO Q4-6H PRN headache #14 05/16/22 50 mg-300 mg-40 mg capsule caps (Fioricet) albuterol sulfate 0.63 mg/3 mL 0.63 mg (3 mL) inhalation QID PRN 06/23/22 solution for nebulization shortness of breath or wheezing #75 mL albuterol sulfate 90 mcg/actuation 1 inh inhalation QID PRN shortness 06/23/22 aerosol inhaler of breath or wheezing #8.5 grams codeine 10 mg-guaifenesin 100 mg/5 5 ml PO Q6H PRN cold symptoms #120 06/23/22 mL oral liquid (Guaifenesin AC) mL nebulizers (AeroEclipse II #1 ea 06/23/22 Nebulizer) prednisone 20 mg tablet 40 mg PO DAILY rash 5 days #10 tabs 06/23/22 cephalexin 500 mg capsule 500 mg PO BID 10 days #20 caps 10/25/22 doxycycline monohydrate 100 mg 100 mg PO BID 10 days #20 tabs 10/25/22 tablet azithromycin 250 mg tablet See Rx Instructions PO .COMPLEX #6 10/30/22 (Zithromax Z-Matteo) tabs prednisone 10 mg tablet 10 mg PO BID #10 tabs 10/30/22 Allergies Allergy/AdvReac Type Severity Reaction Status Date / Time aspirin [ASA] Allergy Intermediate HIVES Verified 10/30/22 08:13 soybean [SOYBEAN] Allergy Intermediate RASH Verified 10/30/22 08:13 Review of Systems Review of Systems: All other systems are reviewed and are negative Constitutional: Reports as per HPI and Reports no additional constitutional complaints Eyes: Reports as per HPI and Reports no additional eye complaints Reports system reviewed and no additional complaints, except as documented Cardiovascular: Reports as per HPI and Reports no additional cardiovascular complaints Respiratory: Reports as per HPI and Reports no additional respiratory complaints Gastrointestinal: Reports as per HPI and Reports no additional gastrointestinal complaints Genitourinary: Reports no additional female genitourinary complaints Musculoskeletal: Reports no additional musculoskeletal complaints Skin/Breast: Reports system reviewed and no additional complaints, except as docu Psychiatric: Reports no additional psychiatric complaints Endocrine: Reports no additional endocrine complaints Hematologic/Lymphatic: Reports no additional hematologic/lymphatic complaints Allergic/Immunologic: Reports no additional allergic/immunologic complaints Reports system reviewed and no additional complaints, except as documented and Reports Abnormal speech present PMFSH Past Medical History Medical History Asthma HTN (hypertension) Kidney stones Surgical History H/O gastric bypass Hx of cholecystectomy Social History Social History Alcohol intake: former Patient Tobacco Use Status: Never used Tobacco Advance Directives: No Advance Directives Information Provided: No Physical Exam ED Vital Signs: Vital Signs - 24 hr 10/30/22 08:13 10/30/22 08:56 Temperature 98.2 F Pulse Rate 65 76 Respiratory Rate 16 20 Blood Pressure 154/58 H Pulse Oximetry 99 Oxygen Delivery Method Room Air BMI result Body Mass Index 40.7 Vital signs have been reviewed as appeared to be correct. Blood pressure normal. Heart rate normal. Respiration rate normal. Temperature normal. Oxygen saturation normal. Appearance: Alert. Oriented X3. No acute distress. Head: Normal external exam. Normocephalic. Atraumatic. No Boyle signs noted. No raccoon eyes noted Eyes: PERRLA. EOMI. Conjunctiva and sclera normal. Eyelids normal. ENT: TM's Normal. Pharynx normal. Uvula midline. Moist mucous membranes. No trismus noted. No drooling noted. No muffled voice noted. Neck: Normal inspection. Neck supple. FROM. No adenopathy. Thyroid Normal. No meningeal signs. No neck mass noted. CVS: Normal heart rate and rhythm. Heart sound normal. No murmurs noted. Pulses normal throughout. Respiratory: No respiratory distress. Painless inspiration. Breath sounds normal. No wheezes/rales/rhonchi noted. Chest nontender. No accessory muscle usage noted or decreased air movement noted. Abdomen: Soft and nontender. Bowel sounds normal in all 4 quadrants. No distention noted. No organomegaly noted. No visible injury noted. Back: No CVA tenderness. Full range of motion noted. Skin: Skin warm and dry. Normal skin color. Normal skin turgor. No rashes/lesions/lacerations noted. Extremities: No lower extremity edema. Extremities exhibit normal range of motion. Extremities nontender. Neuro: Oriented X 3. Cranial nerve exam: II-XII are grossly intact No motor deficit. No sensory deficit. Reflexes normal. Course Course Course Narrative: 51-year-old female came in with symptoms of acute bronchitis, will start the patient on Z-Matteo/prednisone and continue with bronchodilator. Medications Administered Discontinued Medications Generic Name Dose Route Start Last Admin Trade Name Freq PRN Reason Stop Dose Admin Albuterol Sulfate 5 mg 10/30/22 08:29 10/30/22 08:55 Albuterol Sulfate (0.083%) 2.5 Mg/3 Ml Vial.Neb INHALE 10/30/22 08:30 5 mg ONCE ONE Administration Methylprednisolone Sodium Succinate 125 mg 10/30/22 08:29 10/30/22 08:59 Methylprednisolone Sod Succ 125 Mg/2 Ml Vial IVPUSH 10/30/22 08:30 125 mg ONCE ONE Administration Medical Decision Making Differential Diagnosis Differential Diagnoses: The differential diagnosis associated with the presentation includes (Acute bronchitis, pneumonia, ACS, upper respiratory viral infection.) Lab Data MDM Lab Attestation statement: I reviewed the patient's lab results. 10/30/22 08:46 10/30/22 08:46 Labs: Lab Results 10/30/22 10/30/22 10/30/22 Range/Units 08:46 08:46 08:46 WBC 8.0 (4.8-10.8) X10*3/uL RBC 4.95 (4.20-5.50) X10*6/uL Hgb 14.1 (12.0-16.0) g/dl Hct 42.4 (37.0-47.0) % MCV 85.7 (80.0-98.0) fL MCH 28.5 (27.0-33.0) pg MCHC 33.3 (31.0-35.0) g/dl RDW 13.2 (11.0-16.0) % Plt Count 225 (160-400) X10*3/uL MPV 11.2 (9.4-12.3) fL Immature Gran % (Auto) 0.3 (0.0-0.4) % Neut % (Auto) 52.6 (45-73) % Lymph % (Auto) 37.1 (20-40) % [place] % (Auto) 5.4 (2-11) % Eos % (Auto) 4.1 H (0-4) % Baso % (Auto) 0.5 (0-2) % Lymph # (Auto) 3.0 (1.2-4.9) X10*3/uL [place] # (Auto) 0.4 (0.1-1.2) X10*3/uL Eos # (Auto) 0.3 (0.0-0.4) X10*3/uL Baso # (Auto) 0.0 (0.0-0.2) X10*3/uL Abs Immat Gran (auto) 0.02 (0.00-0.03) X10*3/uL Absolute Neuts (auto) 4.2 (2.0-8.3) x10*3/uL Absolute Nucleated RBC 0.000 (0.0-0.012) X10*3/uL Nucleated RBC % (auto) 0.0 (0.0-0.2) /100WBC Sodium 140 (135-145) mmol/L Potassium 4.2 (3.3-5.1) mmol/L Chloride 106 (96-108) mmol/L Carbon Dioxide 25 (22-29) mmol/L Anion Gap 13 (12-20) BUN 19 H (9-16) mg/dL Creatinine 0.74 (0.5-1.4) mg/dL Estim Creat Clear Calc 101.5 Estimated GFR > 60 Random Glucose 206 H (60-115) mg/dL Calcium 9.3 (8.4-10.2) mg/dL Total Bilirubin 0.5 (0.0-1.0) mg/dL Direct Bilirubin < 0.2 (0.0-0.5) mg/dL AST 39 H (5-31) U/L ALT 52 H (0-31) U/L Alkaline Phosphatase 116 (39-117) U/L Troponin I High Sens < 3.5 (<3.5-17.0) ng/L B-Natriuretic Peptide (<100) pg/mL Total Protein 6.6 (6.5-8.0) g/dL Albumin 4.0 (3.5-5.0) g/dL Lipase 16 (8-78) U/L Influenza Type A (PCR) (Negative) Influenza Type B (PCR) (Negative) RSV RNA Qual (PCR) (Negative) SARS-CoV-2 RNA (RT-PCR) (Negative) 10/30/22 10/30/22 Range/Units 08:46 08:46 WBC (4.8-10.8) X10*3/uL RBC (4.20-5.50) X10*6/uL Hgb (12.0-16.0) g/dl Hct (37.0-47.0) % MCV (80.0-98.0) fL MCH (27.0-33.0) pg MCHC (31.0-35.0) g/dl RDW (11.0-16.0) % Plt Count (160-400) X10*3/uL MPV (9.4-12.3) fL Immature Gran % (Auto) (0.0-0.4) % Neut % (Auto) (45-73) % Lymph % (Auto) (20-40) % [place] % (Auto) (2-11) % Eos % (Auto) (0-4) % Baso % (Auto) (0-2) % Lymph # (Auto) (1.2-4.9) X10*3/uL [place] # (Auto) (0.1-1.2) X10*3/uL Eos # (Auto) (0.0-0.4) X10*3/uL Baso # (Auto) (0.0-0.2) X10*3/uL Abs Immat Gran (auto) (0.00-0.03) X10*3/uL Absolute Neuts (auto) (2.0-8.3) x10*3/uL Absolute Nucleated RBC (0.0-0.012) X10*3/uL Nucleated RBC % (auto) (0.0-0.2) /100WBC Sodium (135-145) mmol/L Potassium (3.3-5.1) mmol/L Chloride (96-108) mmol/L Carbon Dioxide (22-29) mmol/L Anion Gap (12-20) BUN (9-16) mg/dL Creatinine (0.5-1.4) mg/dL Estim Creat Clear Calc Estimated GFR Random Glucose (60-115) mg/dL Calcium (8.4-10.2) mg/dL Total Bilirubin (0.0-1.0) mg/dL Direct Bilirubin (0.0-0.5) mg/dL AST (5-31) U/L ALT (0-31) U/L Alkaline Phosphatase (39-117) U/L Troponin I High Sens (<3.5-17.0) ng/L B-Natriuretic Peptide 19 (<100) pg/mL Total Protein (6.5-8.0) g/dL Albumin (3.5-5.0) g/dL Lipase (8-78) U/L Influenza Type A (PCR) NEGATIVE (Negative) Influenza Type B (PCR) NEGATIVE (Negative) RSV RNA Qual (PCR) NEGATIVE (Negative) SARS-CoV-2 RNA (RT-PCR) NEGATIVE (Negative) Independent Interpretation I performed an independent interpretation of an: EKG (Normal sinus rhythm at 69 beats per minute, normal axis deviation, normal intervals, no ST-T changes.) and Plain X-Ray (Chest: No acute intrathoracic pathology.) Radiology Impression Discussion of test interpretation with radiology: I have reviewed the radiologist's reading. Discharge Plan Discharge Clinical Impression: Acute bronchitis Patient Disposition: Home, Self-Care Instructions: Acute Bronchitis (ED) Prescriptions: New azithromycin [Zithromax Z-Matteo] 250 mg tablet See Rx Instructions .ROUTE .COMPLEX Qty: 6 0RF Rx Instructions: For 250 mg dose pack: take 500 mg today (day 1), then 250 mg for 4 days (days 2-5) prednisone 10 mg tablet 10 mg PO BID Qty: 10 0RF No Action cyclobenzaprine 10 mg tablet 10 mg PO TID PRN (Reason: muscle spasm) Qty: 14 0RF ondansetron 4 mg tablet,disintegrating 4 mg PO Q8H PRN (Reason: nausea and vomiting) Qty: 20 0RF omeprazole 40 mg capsule,delayed release(DR/EC) 40 mg PO DAILY 30 Days Qty: 30 0RF Robitussin Cough and Cold CF 2.5-5-50 mg/5 mL liquid 20 ml PO Q4H PRN (Reason: cough) Qty: 118 0RF naproxen [Naprosyn] 500 mg tablet 500 mg PO BID Qty: 20 0RF loperamide [Imodium A-D] 2 mg tablet 2 mg PO Q6H PRN (Reason: loose stool) Qty: 20 0RF hydrocodone-homatropine [Hycodan] 5-1.5 mg/5 mL (5 mL) syrup 5 ml PO Q6H PRN (Reason: cough) Qty: 60 0RF Rx Instructions: Partial Fill upon patient request. ondansetron HCl [Zofran] 4 mg tablet 4 mg PO Q8H PRN (Reason: nausea and vomiting) Qty: 10 0RF benzonatate [Tessalon Perles] 100 mg capsule 100 mg PO TID PRN (Reason: cough) 5 Days Qty: 20 0RF ibuprofen 400 mg tablet 400 mg PO Q6H PRN (Reason: pain) Qty: 20 0RF cyclobenzaprine 10 mg tablet 10 mg PO TID PRN (Reason: muscle spasm) 7 Days Qty: 21 0RF azithromycin 250 mg tablet 250 mg PO DAILY 6 Days Qty: 6 0RF Rx Instructions: start on day 2 of therapy prednisone 20 mg tablet 40 mg PO DAILY Qty: 10 0RF benzonatate 200 mg capsule 200 mg PO TID PRN (Reason: cough) Qty: 20 0RF azithromycin 250 mg tablet See Rx Instructions .ROUTE .COMPLEX Qty: 6 0RF Rx Instructions: take 500 mg today (day 1), then 250 mg for 4 days (days 2-5) benzonatate 100 mg capsule 100 mg PO TID PRN (Reason: cough) Qty: 14 0RF ilbomscqdq-fitrhcfrkgvkq-teox [Fioricet] 50-300-40 mg capsule 1 cap PO Q4-6H PRN (Reason: headache) Qty: 14 0RF (DME) nebulizers [AeroEclipse II Nebulizer] Misc See Rx Instructions .ROUTE .MEDSUPPLY Qty: 1 0RF Rx Instructions: As directed albuterol sulfate 0.63 mg/3 mL solution for nebulization 0.63 mg inhalation QID PRN (Reason: shortness of breath or wheezing) Qty: 75 0RF albuterol sulfate 90 mcg/actuation HFA aerosol inhaler 1 inh inhalation QID PRN (Reason: shortness of breath or wheezing) Qty: 8.5 0RF prednisone 20 mg tablet 40 mg PO DAILY 5 Days Qty: 10 0RF codeine-guaifenesin [Guaifenesin AC] 10-100 mg/5 mL liquid 5 ml PO Q6H PRN (Reason: cold symptoms) Qty: 120 0RF doxycycline monohydrate 100 mg tablet 100 mg PO BID 10 Days Qty: 20 0RF cephalexin 500 mg capsule 500 mg PO BID 10 Days Qty: 20 0RF Referrals: Carmen Fernando MD [Primary Care Provider] -
[2022-10-30] MEDS: Albuterol Sulfate (0.083%) 2.5 MG/3 ML VIAL.NEB 5 MG INHALE (08:55)
[2022-10-30 08:56] VITALS: PULSE 76; RESP 20; O2SAT 98
[2022-10-30 08:59] LABS: MANUAL DIFF FLAG NO
[2022-10-30] MEDS: methylPREDNISolone Sod Succ 125 MG/2 ML VIAL IVPUSH (08:59)
[2022-10-30 09:02] LABS: Basophils Percent Auto 0.5 % (0-2); Eosinophils Absolute Auto 0.3 X10*3/uL (0.0-0.4); Eosinophils Percent Auto 4.1 % (0-4); Hematocrit 42.4 % (37.0-47.0); Hemoglobin 14.1 g/dl (12.0-16.0); Imm Gran Abs Auto 0.02 X10*3/uL (0.00-0.03); Imm Gran Pct Auto 0.3 % (0.0-0.4); Lymphocytes Percent Auto 37.1 % (20-40); Mean Corpuscular HGB Conc 33.3 g/dl (31.0-35.0); Mean Corpuscular Hemoglobin 28.5 pg (27.0-33.0); Mean Corpuscular Volume 85.7 fL (80.0-98.0); Mean Platelet Volume 11.2 fL (9.4-12.3); Monocytes Absolute Auto 0.4 X10*3/uL (0.1-1.2); Monocytes Percent Auto 5.4 % (2-11); Neutrophils Absolute Auto 4.2 x10*3/uL (2.0-8.3); Neutrophils Percent Auto 52.6 % (45-73); Platelet Count 225 X10*3/uL (160-400); Red Blood Count 4.95 X10*6/uL (4.20-5.50); Red Cell Distribution Width 13.2 % (11.0-16.0)
[2022-10-30 09:17] LABS: Alanine Aminotransferase 52 U/L (0-31); Alkaline Phosphatase 116 U/L (39-117); Anion Gap 13 (12-20); Aspartate Amino Transferase 39 U/L (5-31); Bilirubin Direct < 0.2 mg/dL (0.0-0.5); Bilirubin Total 0.5 mg/dL (0.0-1.0); Blood Urea Nitrogen 19 mg/dL (9-16); Calcium 9.3 mg/dL (8.4-10.2); Carbon Dioxide 25 mmol/L (22-29); Chloride 106 mmol/L (96-108); Creatinine Clr Calc Pharmacy 101.5; Estimated Glomerular Filt Rate > 60; Glucose Random 206 mg/dL (60-115); Lipase 16 U/L (8-78); Potassium 4.2 mmol/L (3.3-5.1); Sodium 140 mmol/L (135-145); Total Protein 6.6 g/dL (6.5-8.0)
[2022-10-30 09:22] LABS: B Type Natriuretic Peptide 19 pg/mL (<100)
[2022-10-30 09:37] LABS: Influenza A PCR NEGATIVE (Negative); Influenza B PCR NEGATIVE (Negative); Resp Syncy Virus RNA Qual PCR NEGATIVE (Negative); SARS COV2 PCR INHOUSE NEGATIVE (Negative)
[2022-10-30 09:55] LABS: Troponin-I High Sensitivity < 3.5 ng/L (<3.5-17.0)
== END 2022-10-30 10:36 | disposition home or self-care (01) ==
PROVIDERS: Emergency Provider Emergency Medicine; PCP Internal Medicine
DX: J20.9 Acute bronchitis, unspecified (principal); R06.02 Shortness of breath; R07.89 Other chest pain; R05.9 Cough, unspecified; G47.00 Insomnia, unspecified; Z20.822 Contact with and (suspected) exposure to COVID-19; Z20.828 Contact with and (suspected) exposure to other viral communicable diseases; Z79.899 Other long term (current) drug therapy
CPT/HCPCS: 0241U; 36415; 71045; 80048; 80076; 83690; 83880; 84484; 85025; 93005; 94640; 96374; 99284; J2930

== ENCOUNTER 2023-01-24 12:09 | Emergency (ER) | payer MEDICARE, MEDICAID, SELFPAY ==
--- NOTE | ~2023-01-24 | XR_ITS ---
EXAMINATION: XR CHEST CLINICAL INFORMATION: Chest pain, cough, COVID plus COMPARISON: None available. TECHNIQUE: Frontal view of the chest was obtained. FINDINGS: No significant abnormality is noted involving the heart, lungs, mediastinum, bony thorax or soft tissues. XR/XR chest 1V IMPRESSION: Unremarkable chest examination.
[2023-01-24 12:47] VITALS: BP 182/84; PULSE 60; RESP 18; TEMP 36; O2SAT 97; BMI 40.7
--- NOTE | 2023-01-24 12:48 | ED.URI ---
HPI - URI/Sore Throat General Chief Complaint: Upper Respiratory Symptoms Stated Complaint: Weak Not Feeling Well Time Seen by Provider: 01/24/23 15:11 Source: patient Mode of arrival: ambulatory Limitations: no limitations History of Present Illness HPI Narrative: Patient comes to the emergency room complaining of body aches, headache, lightheaded, patient states she has been coughing. Patient states she was exposed to COVID 4 days ago and she had attended a hoahaoism camp. Denies chest pain, no shortness of breath. Related Data Previous Rx's Medication Instructions Recorded cyclobenzaprine 10 mg tablet 10 mg PO TID PRN muscle spasm #14 07/29/20 tabs ondansetron 4 mg disintegrating 4 mg PO Q8H PRN nausea and 07/29/20 tablet vomiting #20 tabs benzonatate 100 mg capsule 100 mg PO TID PRN cough 5 days #20 05/22/21 (Tesbakari Rand) caps ibuprofen 400 mg tablet 400 mg PO Q6H PRN pain #20 tabs 05/22/21 ondansetron HCl 4 mg tablet 4 mg PO Q8H PRN nausea and 05/22/21 (Zofran) vomiting #10 tabs omeprazole 40 mg capsule,delayed 40 mg PO DAILY 30 days #30 caps 05/31/21 release naproxen 500 mg tablet (Naprosyn) 500 mg PO BID #20 tabs 07/16/21 rajdlhwjukcsd-UN-sreaslwqaui 2.5 20 ml PO Q4H PRN cough #118 mL 07/16/21 mg-5 mg-50 mg/5 mL oral liquid (Robitussin Cough and Cold CF) cyclobenzaprine 10 mg tablet 10 mg PO TID PRN muscle spasm 7 12/31/21 days #21 tabs azithromycin 250 mg tablet 250 mg PO DAILY 6 days #6 tabs 02/01/22 benzonatate 200 mg capsule 200 mg PO TID PRN cough #20 caps 02/01/22 prednisone 20 mg tablet 40 mg PO DAILY #10 tabs 02/01/22 hydrocodone-homatropine 5 mg-1.5 5 ml PO Q6H PRN cough #60 mL 03/01/22 mg/5 mL (5 mL) oral syrup (Hycodan) loperamide 2 mg tablet (Imodium 2 mg PO Q6H PRN loose stool #20 03/01/22 A-D) tabs azithromycin 250 mg tablet See Rx Instructions PO .COMPLEX #6 05/16/22 tabs benzonatate 100 mg capsule 100 mg PO TID PRN cough #14 caps 05/16/22 ntpiskzyuj-vmeihhnuyemch-jzvxypba 1 cap PO Q4-6H PRN headache #14 05/16/22 50 mg-300 mg-40 mg capsule caps (Fioricet) albuterol sulfate 0.63 mg/3 mL 0.63 mg (3 mL) inhalation QID PRN 06/23/22 solution for nebulization shortness of breath or wheezing #75 mL albuterol sulfate 90 mcg/actuation 1 inh inhalation QID PRN shortness 06/23/22 aerosol inhaler of breath or wheezing #8.5 grams codeine 10 mg-guaifenesin 100 mg/5 5 ml PO Q6H PRN cold symptoms #120 06/23/22 mL oral liquid (Guaifenesin AC) mL nebulizers (AeroEclipse II #1 ea 06/23/22 Nebulizer) prednisone 20 mg tablet 40 mg PO DAILY rash 5 days #10 tabs 06/23/22 cephalexin 500 mg capsule 500 mg PO BID 10 days #20 caps 10/25/22 doxycycline monohydrate 100 mg 100 mg PO BID 10 days #20 tabs 10/25/22 tablet azithromycin 250 mg tablet See Rx Instructions PO .COMPLEX #6 10/30/22 (Zithromax Z-Matteo) tabs prednisone 10 mg tablet 10 mg PO BID #10 tabs 10/30/22 ibuprofen 600 mg tablet 600 mg PO Q6H PRN fever or pain 01/24/23 #14 tabs Allergies Allergy/AdvReac Type Severity Reaction Status Date / Time aspirin [ASA] Allergy Intermediate HIVES Verified 01/24/23 12:47 soybean [SOYBEAN] Allergy Intermediate RASH Verified 01/24/23 12:47 Review of Systems Review of Systems: Constitutional : No Weight loss, No Fever, No Chills, No Night Sweats, complaining of fatigue and generalized malaise ENT/Mouth : No Hearing loss, No Ear Pain, No Nasal Congestion, No Sinus Pain, No Hoarseness, No sore throat, No Rhinorrhea, No Swallowing Difficulty Eyes: No Eye Pain, No Swelling, No Redness, No Foreign Body, No Discharge, No Vision Changes Cardiovascular : No Chest Pain, No SOB, No Dyspnea on Exertion, No Orthopnea, No Edema, No Palpitations Respiratory : Complaining of dry Cough, No Sputum, No Wheezing, No Smoke Exposure, No Dyspnea Gastrointestinal : No Nausea, No Vomiting, No Diarrhea, No Constipation, No abdominal Pain, No Hematochezia, No Melena Genitourinary : no irregular bleeding, No Dysuria, No Urinary Frequency, No Hematuria, No Urinary Incontinence, No Urgency, No Flank Pain, No Urinary Flow Changes, No Hesitancy Musculoskeletal : No joint pain, No Myalgias, No Joint Swelling Skin : No Skin Lesions, No rash Neuro : No Weakness, No Numbness, No Paresthesias, No Loss of Consciousness, No Dizziness, complaining of mild frontal headache Psych : No Anxiety/Panic, No Depression, No SI/HI/AH/VH, No Social Issues, Heme/Lymph: No Bruising, No Bleeding,No Lymphadenopathy Endocrine : No Polyuria, No Polydipsia, No Temperature Intolerance [facility] Past Medical History Medical History Asthma HTN (hypertension) Kidney stones Surgical History H/O gastric bypass Hx of cholecystectomy Social History Social History Alcohol intake: never Patient Tobacco Use Status: Never used Tobacco Smoked in Last 30 Days: No Use of substances other than those prescribed or required for medical reasons: No Advance Directives: No Physical Exam Vital Signs: Vital Signs: Last Vital Signs Temp 98.6 F 01/24/23 13:41 Pulse 111 H 01/24/23 13:41 Resp 18 01/24/23 13:41 BP 149/78 H 01/24/23 13:41 Pulse Ox 100 01/24/23 13:41 O2 Del Method Room Air 01/24/23 13:41 BMI result Body Mass Index 40.7 Const: Other: Appearance: Alert. Oriented X3. No acute distress. Eyes: Pupils equal, round and reactive to light. ENT: Pharynx normal. Neck: Normal inspection. Neck supple. No lymph nodes noted. No crepitus CVS: Normal heart rate and rhythm. Pulses normal. Normal S1 and S2 Respiratory: No respiratory distress. Breath sounds normal. No Wheezing. No rales Abdomen: Soft and nontender. No rigidity. No distention. Skin: Skin warm and dry. Normal skin color. Normal skin turgor. Extremities: No lower extremity edema. No Lacerations. No Rash Neuro: Oriented X 3. No motor deficit. No sensory deficit. Moving all extremities. No slurred speech. CN 2 through 12 grossly intact Psych: calm, cooperative, normal affect Course Course Course Narrative: RME: 52yo F w/PMHx Asthma c/o cough, SOB, CP, lightheadedness, generalized weakness s/p camping w/hoahaoism group and someone she was w/testing +for COVID. Admits to positive home COVID test yesterday EKG, labs, CXR COVID/FLU ordered Full HPI, ROS and PE to be performed by primary ED provider. Medical Decision Making Medical Decision Making [facility] Narrative: -patient's oxygen saturation is 98% on room air, no respiratory distress -patient tested negative for COVID-19 -chest x-ray my interpretation: No pneumonia. radiology report: Unremarkable -patient likely having a viral syndrome, COVID-19 has not been completely rule out. Patient instructed to get tested again in couple of days before return to work. -patient was given ibuprofen for her headache Lab Data [facility] Lab Attestation statement: I reviewed the patient's lab results. 01/24/23 13:10 01/24/23 13:09 Labs: Lab Results 01/24/23 01/24/23 01/24/23 Range/Units 13:09 13:09 13:09 WBC (4.8-10.8) X10*3/uL RBC (4.20-5.50) X10*6/uL Hgb (12.0-16.0) g/dl Hct (37.0-47.0) % MCV (80.0-98.0) fL MCH (27.0-33.0) pg MCHC (31.0-35.0) g/dl RDW (11.0-16.0) % Plt Count (160-400) X10*3/uL MPV (9.4-12.3) fL Immature Gran % (Auto) (0.0-0.4) % Neut % (Auto) (45-73) % Lymph % (Auto) (20-40) % [place] % (Auto) (2-11) % Eos % (Auto) (0-4) % Baso % (Auto) (0-2) % Lymph # (Auto) (1.2-4.9) X10*3/uL [place] # (Auto) (0.1-1.2) X10*3/uL Eos # (Auto) (0.0-0.4) X10*3/uL Baso # (Auto) (0.0-0.2) X10*3/uL Abs Immat Gran (auto) (0.00-0.03) X10*3/uL Absolute Neuts (auto) (2.0-8.3) x10*3/uL Absolute Nucleated RBC (0.0-0.012) X10*3/uL Nucleated RBC % (auto) (0.0-0.2) /100WBC PT 11.1 (10.0-13.1) SEC INR 1.0 (0.9-1.1) Sodium (135-145) mmol/L Potassium (3.3-5.1) mmol/L Chloride (96-108) mmol/L Carbon Dioxide (22-29) mmol/L Anion Gap (12-20) BUN (9-16) mg/dL Creatinine (0.5-1.4) mg/dL Estim Creat Clear Calc Estimated GFR Random Glucose (60-115) mg/dL Calcium (8.4-10.2) mg/dL Magnesium (1.6-2.6) mg/dL Total Bilirubin (0.0-1.0) mg/dL Direct Bilirubin (0.0-0.5) mg/dL AST (5-31) U/L ALT (0-31) U/L Alkaline Phosphatase (39-117) U/L Troponin I High Sens (<3.5-17.0) ng/L Total Protein (6.5-8.0) g/dL Albumin (3.5-5.0) g/dL COVID-19 (LEE ANN) Negative (Negative) COVID-19 Clin Com See Note Influenza Type A (RUBIN) Negative (Negative) Influenza Type B (RUBIN) Negative (Negative) Influenza A & B Note See Note S. pyogenes GrpA RUBIN (Negative) 01/24/23 01/24/23 01/24/23 Range/Units 13:09 13:09 13:10 WBC 6.3 (4.8-10.8) X10*3/uL RBC 4.65 (4.20-5.50) X10*6/uL Hgb 13.4 (12.0-16.0) g/dl Hct 40.7 (37.0-47.0) % MCV 87.5 (80.0-98.0) fL MCH 28.8 (27.0-33.0) pg MCHC 32.9 (31.0-35.0) g/dl RDW 12.8 (11.0-16.0) % Plt Count 235 (160-400) X10*3/uL MPV 11.9 (9.4-12.3) fL Immature Gran % (Auto) 0.2 (0.0-0.4) % Neut % (Auto) 51.9 (45-73) % Lymph % (Auto) 38.8 (20-40) % [place] % (Auto) 5.2 (2-11) % Eos % (Auto) 3.3 (0-4) % Baso % (Auto) 0.6 (0-2) % Lymph # (Auto) 2.5 (1.2-4.9) X10*3/uL [place] # (Auto) 0.3 (0.1-1.2) X10*3/uL Eos # (Auto) 0.2 (0.0-0.4) X10*3/uL Baso # (Auto) 0.0 (0.0-0.2) X10*3/uL Abs Immat Gran (auto) 0.01 (0.00-0.03) X10*3/uL Absolute Neuts (auto) 3.3 (2.0-8.3) x10*3/uL Absolute Nucleated RBC 0.000 (0.0-0.012) X10*3/uL Nucleated RBC % (auto) 0.0 (0.0-0.2) /100WBC PT (10.0-13.1) SEC INR (0.9-1.1) Sodium 143 (135-145) mmol/L Potassium 4.0 (3.3-5.1) mmol/L Chloride 113 H (96-108) mmol/L Carbon Dioxide 23 (22-29) mmol/L Anion Gap 11 L (12-20) BUN 10 (9-16) mg/dL Creatinine 0.68 (0.5-1.4) mg/dL Estim Creat Clear Calc 109.2 Estimated GFR > 60 Random Glucose 130 H (60-115) mg/dL Calcium 9.0 (8.4-10.2) mg/dL Magnesium 2.0 (1.6-2.6) mg/dL Total Bilirubin 0.3 (0.0-1.0) mg/dL Direct Bilirubin 0.1 (0.0-0.5) mg/dL AST 18 (5-31) U/L ALT 16 (0-31) U/L Alkaline Phosphatase 102 (39-117) U/L Troponin I High Sens < 2.7 (<3.5-17.0) ng/L Total Protein 6.7 (6.5-8.0) g/dL Albumin 3.8 (3.5-5.0) g/dL COVID-19 (LEE ANN) (Negative) COVID-19 Clin Com Influenza Type A (RUBIN) (Negative) Influenza Type B (RUBIN) (Negative) Influenza A & B Note S. pyogenes GrpA RUBIN (Negative) 01/24/23 Range/Units 13:18 WBC (4.8-10.8) X10*3/uL RBC (4.20-5.50) X10*6/uL Hgb (12.0-16.0) g/dl Hct (37.0-47.0) % MCV (80.0-98.0) fL MCH (27.0-33.0) pg MCHC (31.0-35.0) g/dl RDW (11.0-16.0) % Plt Count (160-400) X10*3/uL MPV (9.4-12.3) fL Immature Gran % (Auto) (0.0-0.4) % Neut % (Auto) (45-73) % Lymph % (Auto) (20-40) % [place] % (Auto) (2-11) % Eos % (Auto) (0-4) % Baso % (Auto) (0-2) % Lymph # (Auto) (1.2-4.9) X10*3/uL [place] # (Auto) (0.1-1.2) X10*3/uL Eos # (Auto) (0.0-0.4) X10*3/uL Baso # (Auto) (0.0-0.2) X10*3/uL Abs Immat Gran (auto) (0.00-0.03) X10*3/uL Absolute Neuts (auto) (2.0-8.3) x10*3/uL Absolute Nucleated RBC (0.0-0.012) X10*3/uL Nucleated RBC % (auto) (0.0-0.2) /100WBC PT (10.0-13.1) SEC INR (0.9-1.1) Sodium (135-145) mmol/L Potassium (3.3-5.1) mmol/L Chloride (96-108) mmol/L Carbon Dioxide (22-29) mmol/L Anion Gap (12-20) BUN (9-16) mg/dL Creatinine (0.5-1.4) mg/dL Estim Creat Clear Calc Estimated GFR Random Glucose (60-115) mg/dL Calcium (8.4-10.2) mg/dL Magnesium (1.6-2.6) mg/dL Total Bilirubin (0.0-1.0) mg/dL Direct Bilirubin (0.0-0.5) mg/dL AST (5-31) U/L ALT (0-31) U/L Alkaline Phosphatase (39-117) U/L Troponin I High Sens (<3.5-17.0) ng/L Total Protein (6.5-8.0) g/dL Albumin (3.5-5.0) g/dL COVID-19 (LEE ANN) (Negative) COVID-19 Clin Com Influenza Type A (RUBIN) (Negative) Influenza Type B (RUBIN) (Negative) Influenza A & B Note S. pyogenes GrpA RUBIN Negative (Negative) Radiology Impression Discussion of test interpretation with radiology: I have reviewed the radiologist's reading. Radiologist Impression: FINDINGS: No significant abnormality is noted involving the heart, lungs, mediastinum, bony thorax or soft tissues. XR/XR chest 1V IMPRESSION: Unremarkable chest examination. Discharge Plan Discharge Clinical Impression: Acute viral syndrome Patient Disposition: Home, Self-Care Instructions: Viral Syndrome (ED) Additional Instructions: Please get tested for COVID-19 before going back to work. Please follow-up with your primary care physician tomorrow. If you have any worsening or new symptoms, please return to the emergency room or call 911 Prescriptions: New ibuprofen 600 mg tablet 600 mg PO Q6H PRN (Reason: fever or pain) Qty: 14 0RF No Action cyclobenzaprine 10 mg tablet 10 mg PO TID PRN (Reason: muscle spasm) Qty: 14 0RF ondansetron 4 mg tablet,disintegrating 4 mg PO Q8H PRN (Reason: nausea and vomiting) Qty: 20 0RF omeprazole 40 mg capsule,delayed release(DR/EC) 40 mg PO DAILY 30 Days Qty: 30 0RF Robitussin Cough and Cold CF 2.5-5-50 mg/5 mL liquid 20 ml PO Q4H PRN (Reason: cough) Qty: 118 0RF naproxen [Naprosyn] 500 mg tablet 500 mg PO BID Qty: 20 0RF loperamide [Imodium A-D] 2 mg tablet 2 mg PO Q6H PRN (Reason: loose stool) Qty: 20 0RF hydrocodone-homatropine [Hycodan] 5-1.5 mg/5 mL (5 mL) syrup 5 ml PO Q6H PRN (Reason: cough) Qty: 60 0RF Rx Instructions: Partial Fill upon patient request. ondansetron HCl [Zofran] 4 mg tablet 4 mg PO Q8H PRN (Reason: nausea and vomiting) Qty: 10 0RF benzonatate [Tessalon Perles] 100 mg capsule 100 mg PO TID PRN (Reason: cough) 5 Days Qty: 20 0RF ibuprofen 400 mg tablet 400 mg PO Q6H PRN (Reason: pain) Qty: 20 0RF cyclobenzaprine 10 mg tablet 10 mg PO TID PRN (Reason: muscle spasm) 7 Days Qty: 21 0RF azithromycin 250 mg tablet 250 mg PO DAILY 6 Days Qty: 6 0RF Rx Instructions: start on day 2 of therapy prednisone 20 mg tablet 40 mg PO DAILY Qty: 10 0RF benzonatate 200 mg capsule 200 mg PO TID PRN (Reason: cough) Qty: 20 0RF azithromycin 250 mg tablet See Rx Instructions .ROUTE .COMPLEX Qty: 6 0RF Rx Instructions: take 500 mg today (day 1), then 250 mg for 4 days (days 2-5) benzonatate 100 mg capsule 100 mg PO TID PRN (Reason: cough) Qty: 14 0RF zgyxmzqtym-yenuddfphaaqh-ftln [Fioricet] 50-300-40 mg capsule 1 cap PO Q4-6H PRN (Reason: headache) Qty: 14 0RF (DME) nebulizers [AeroEclipse II Nebulizer] Misc See Rx Instructions .ROUTE .MEDSUPPLY Qty: 1 0RF Rx Instructions: As directed albuterol sulfate 0.63 mg/3 mL solution for nebulization 0.63 mg inhalation QID PRN (Reason: shortness of breath or wheezing) Qty: 75 0RF albuterol sulfate 90 mcg/actuation HFA aerosol inhaler 1 inh inhalation QID PRN (Reason: shortness of breath or wheezing) Qty: 8.5 0RF prednisone 20 mg tablet 40 mg PO DAILY 5 Days Qty: 10 0RF codeine-guaifenesin [Guaifenesin AC] 10-100 mg/5 mL liquid 5 ml PO Q6H PRN (Reason: cold symptoms) Qty: 120 0RF doxycycline monohydrate 100 mg tablet 100 mg PO BID 10 Days Qty: 20 0RF cephalexin 500 mg capsule 500 mg PO BID 10 Days Qty: 20 0RF azithromycin [Zithromax Z-Matteo] 250 mg tablet See Rx Instructions .ROUTE .COMPLEX Qty: 6 0RF Rx Instructions: For 250 mg dose pack: take 500 mg today (day 1), then 250 mg for 4 days (days 2-5) prednisone 10 mg tablet 10 mg PO BID Qty: 10 0RF Stand Alone Forms: Work/School Release
--- NOTE | 2023-01-24 12:49 | ECG_ITS ---
Test Reason : dizziness Blood Pressure : / mmHG Vent. Rate : 055 BPM Atrial Rate : 055 BPM P-R Int : 178 ms QRS Dur : 090 ms QT Int : 420 ms P-R-T Axes : 022 010 022 degrees QTc Int : 401 ms Sinus bradycardia Minimal voltage criteria for LVH, may be normal variant ( R in aVL ) Cannot rule out Anterior infarct , age undetermined Abnormal ECG When compared with ECG of 30-OCT-2022 08:21, No significant change was found Referred By: Georgina Colin Electronically Signed By:SIERRA MABRY MD
[2023-01-24 13:22] LABS: MANUAL DIFF FLAG NO
[2023-01-24 13:29] LABS: Basophils Percent Auto 0.6 % (0-2); Eosinophils Absolute Auto 0.2 X10*3/uL (0.0-0.4); Eosinophils Percent Auto 3.3 % (0-4); Hematocrit 40.7 % (37.0-47.0); Hemoglobin 13.4 g/dl (12.0-16.0); Imm Gran Abs Auto 0.01 X10*3/uL (0.00-0.03); Imm Gran Pct Auto 0.2 % (0.0-0.4); Lymphocytes Absolute Auto 2.5 X10*3/uL (1.2-4.9); Lymphocytes Percent Auto 38.8 % (20-40); Mean Corpuscular HGB Conc 32.9 g/dl (31.0-35.0); Mean Corpuscular Hemoglobin 28.8 pg (27.0-33.0); Mean Corpuscular Volume 87.5 fL (80.0-98.0); Mean Platelet Volume 11.9 fL (9.4-12.3); Monocytes Absolute Auto 0.3 X10*3/uL (0.1-1.2); Monocytes Percent Auto 5.2 % (2-11); Neutrophils Absolute Auto 3.3 x10*3/uL (2.0-8.3); Neutrophils Percent Auto 51.9 % (45-73); Platelet Count 235 X10*3/uL (160-400); Red Blood Count 4.65 X10*6/uL (4.20-5.50); Red Cell Distribution Width 12.8 % (11.0-16.0); White Blood Count 6.3 X10*3/uL (4.8-10.8)
[2023-01-24 13:30] LABS: Prothrombin Time 11.1 SEC (10.0-13.1)
[2023-01-24 13:38] LABS: COVID-19 Test Negative (Negative); IDNOW Serial# 08D9AD1C; IDNOW Serial# BCCEAD1C; Influenza A Negative (Negative); Influenza B2 Negative (Negative)
[2023-01-24 13:39] LABS: IDNOW Serial# 6674DD1D; Strep A Nucleic Acid Negative (Negative)
[2023-01-24 13:39] LABS: Alanine Aminotransferase 16 U/L (0-31); Albumin Level 3.8 g/dL (3.5-5.0); Alkaline Phosphatase 102 U/L (39-117); Anion Gap 11 (12-20); Aspartate Amino Transferase 18 U/L (5-31); Bilirubin Direct 0.1 mg/dL (0.0-0.5); Bilirubin Total 0.3 mg/dL (0.0-1.0); Blood Urea Nitrogen 10 mg/dL (9-16); Carbon Dioxide 23 mmol/L (22-29); Chloride 113 mmol/L (96-108); Creatinine Clr Calc Pharmacy 109.2; Estimated Glomerular Filt Rate > 60; Glucose Random 130 mg/dL (60-115); Sodium 143 mmol/L (135-145); Total Protein 6.7 g/dL (6.5-8.0)
[2023-01-24 13:41] VITALS: BP 149/78; PULSE 111; RESP 18; TEMP 37; O2SAT 100
--- NOTE | 2023-01-24 13:44 | PC.NURSE ---
Alert and oriented. States since Monday has felt weak, has had a cough, sob, sore throat diarrhea, and overall body aches. VSS. No edema. NSR on monitor. Reports that she was around someone who recently tested positive for covid 19.
[2023-01-24 13:48] LABS: Troponin-I High Sensitivity < 2.7 ng/L (<3.5-17.0)
[2023-01-24 16:04] LABS: Appearance Urine Cloudy; Color Urine Yellow; Glucose Urine UA Negative (Negative); Leukocyte Esterase Urine Negative (Negative); Nitrite Urine Negative (Negative); PH 5.5 (5.0-9.0); Urine Blood Negative (Negative); Urine Ketones Negative (Negative); Urine Protein Negative (Neg-Trace)
[2023-01-24] MEDS: Ibuprofen 600 MG TABLET PO (16:17)
[2023-01-24 16:18] VITALS: BP 158/84; PULSE 95; RESP 18; O2SAT 98
--- NOTE | 2023-01-24 16:19 | PC.NURSE ---
Medicated per order, patient aware that urine is still pending and will be discharged after urine results are back
--- NOTE | 2023-01-24 16:36 | PC.NURSE ---
Discahrge plan reviewed with patient who verbalized understanding
== END 2023-01-24 16:36 | disposition home or self-care (01) ==
PROVIDERS: Physician Assistant; Emergency Provider Emergency Medicine; PCP Internal Medicine
DX: B34.9 Viral infection, unspecified (principal); M79.10 Myalgia, unspecified site; R51.9 Headache, unspecified; R00.1 Bradycardia, unspecified; Z20.822 Contact with and (suspected) exposure to COVID-19; Z20.828 Contact with and (suspected) exposure to other viral communicable diseases; Z79.899 Other long term (current) drug therapy
CPT/HCPCS: 36415; 71045; 80048; 80076; 81003; 83735; 84484; 85025; 85610; 87502; 87635; 87651; 93005; 99283; 99285

== ENCOUNTER 2023-01-28 06:40 | Emergency (ER) | payer MEDICARE, MEDICAID, SELFPAY ==
--- NOTE | ~2023-01-28 | US_ITS ---
EXAMINATION: US ABDOMEN LIMITED CLINICAL INFORMATION: Elevated LFTs.. COMPARISON: None available. TECHNIQUE: Real-time imaging of the right upper quadrant abdominal viscera. FINDINGS: PANCREAS: Normal. LIVER: The liver is enlarged in size measuring 16.9 cm The liver contour is normal. Parenchymal echogenicity is increased. No focal hepatic lesion. There is no intrahepatic biliary duct dilatation seen. GALLBLADDER: The gallbladder has been surgically removed. COMMON BILE DUCT: Normal in caliber measuring 0.9 cm in diameter. RIGHT KIDNEY: Normal. No hydronephrosis. No renal calculi or focal parenchymal lesions. The kidney measures 10.5 cm in maximum dimension. FREE FLUID: None. US/US abdomen limited IMPRESSION: Diffuse hepatic steatosis without focal lesion. Mild hepatomegaly. Gallbladder has been surgically removed.
[2023-01-28 06:52] VITALS: BP 166/72; PULSE 71; RESP 18; TEMP 37; O2SAT 96; BMI 39.5
[2023-01-28 07:10] LABS: MANUAL DIFF FLAG NO
[2023-01-28 07:23] LABS: Basophils Percent Auto 0.4 % (0-2); Eosinophils Absolute Auto 0.2 X10*3/uL (0.0-0.4); Eosinophils Percent Auto 3.3 % (0-4); Hematocrit 38.2 % (37.0-47.0); Hemoglobin 12.7 g/dl (12.0-16.0); Imm Gran Abs Auto 0.01 X10*3/uL (0.00-0.03); Imm Gran Pct Auto 0.1 % (0.0-0.4); Lymphocytes Absolute Auto 2.5 X10*3/uL (1.2-4.9); Lymphocytes Percent Auto 36.5 % (20-40); Mean Corpuscular HGB Conc 33.2 g/dl (31.0-35.0); Mean Corpuscular Hemoglobin 28.1 pg (27.0-33.0); Mean Corpuscular Volume 84.5 fL (80.0-98.0); Mean Platelet Volume 11.7 fL (9.4-12.3); Monocytes Absolute Auto 0.4 X10*3/uL (0.1-1.2); Monocytes Percent Auto 5.3 % (2-11); Neutrophils Absolute Auto 3.8 x10*3/uL (2.0-8.3); Neutrophils Percent Auto 54.4 % (45-73); Platelet Count 224 X10*3/uL (160-400); Red Blood Count 4.52 X10*6/uL (4.20-5.50); Red Cell Distribution Width 12.6 % (11.0-16.0)
[2023-01-28 07:28] LABS: Alanine Aminotransferase 77 U/L (0-31); Albumin Level 3.8 g/dL (3.5-5.0); Alkaline Phosphatase 131 U/L (39-117); Anion Gap 12 (12-20); Aspartate Amino Transferase 146 U/L (5-31); Bilirubin Direct 0.2 mg/dL (0.0-0.5); Bilirubin Total 0.4 mg/dL (0.0-1.0); Blood Urea Nitrogen 16 mg/dL (9-16); Calcium 9.4 mg/dL (8.4-10.2); Carbon Dioxide 23 mmol/L (22-29); Chloride 109 mmol/L (96-108); Creatinine Clr Calc Pharmacy 102.3; Estimated Glomerular Filt Rate > 60; Glucose Random 135 mg/dL (60-115); Lipase 16 U/L (8-78); Potassium 3.8 mmol/L (3.3-5.1); Sodium 140 mmol/L (135-145); Total Protein 6.5 g/dL (6.5-8.0)
[2023-01-28 07:41] LABS: Appearance Urine Clear; Color Urine Yellow; Glucose Urine UA Negative (Negative); Leukocyte Esterase Urine Negative (Negative); Nitrite Urine Negative (Negative); Specific Gravity - Urine >= 1.030 (1.005-1.025); Urine Blood Negative (Negative); Urine Ketones Negative (Negative); Urine Protein Trace mg/dL (Neg-Trace)
[2023-01-28] MEDS: 0.9 % Sodium Chloride 1,000 ML 999 ML IVCONT (07:54)
[2023-01-28] MEDS: Metoclopramide HCl 10 MG/2 ML VIAL IVPUSH (07:54)
--- NOTE | 2023-01-28 08:09 | PC.NURSE ---
alert, speech clear, epigastric pain, nausea, medicated as ordered, skin wpd
[2023-01-28 08:29] VITALS: BP 127/68; PULSE 55; RESP 16; O2SAT 99
--- NOTE | 2023-01-28 09:06 | ED.NAVMDI ---
HPI - Nausea/Vomiting/Diarrhea General Chief complaint: Nausea/Vomiting/Diarrhea Stated complaint: seen recently, schaffer to urinate, asthma, mult. com Time Seen by Provider: 01/28/23 07:03 Source: patient Mode of arrival: ambulatory Limitations: no limitations History of Present Illness HPI Narrative: 52 year old female with history significant for T2DM on metformin, asthma, and HTN presents today with continued nausea, vomiting, and diarrhea. She was evaluated in our ED 4 days ago and diagnosed with a viral syndrome. She states her symptoms have continued and she has been unable to eat anything. Denies fever, chills, constipation, abdominal pain, chest pain, shortness of breath, dysuria, hematuria, or rectal bleeding. Associated nausea: Yes Related Data Previous Rx's Medication Instructions Recorded cyclobenzaprine 10 mg tablet 10 mg PO TID PRN muscle spasm #14 07/29/20 tabs ondansetron 4 mg disintegrating 4 mg PO Q8H PRN nausea and 07/29/20 tablet vomiting #20 tabs benzonatate 100 mg capsule 100 mg PO TID PRN cough 5 days #20 05/22/21 (Asael Rand) caps ibuprofen 400 mg tablet 400 mg PO Q6H PRN pain #20 tabs 05/22/21 ondansetron HCl 4 mg tablet 4 mg PO Q8H PRN nausea and 05/22/21 (Zofran) vomiting #10 tabs omeprazole 40 mg capsule,delayed 40 mg PO DAILY 30 days #30 caps 05/31/21 release naproxen 500 mg tablet (Naprosyn) 500 mg PO BID #20 tabs 07/16/21 hqpbgovcstozy-TE-pnuainusoid 2.5 20 ml PO Q4H PRN cough #118 mL 07/16/21 mg-5 mg-50 mg/5 mL oral liquid (Robitussin Cough and Cold CF) cyclobenzaprine 10 mg tablet 10 mg PO TID PRN muscle spasm 7 12/31/21 days #21 tabs azithromycin 250 mg tablet 250 mg PO DAILY 6 days #6 tabs 02/01/22 benzonatate 200 mg capsule 200 mg PO TID PRN cough #20 caps 02/01/22 prednisone 20 mg tablet 40 mg PO DAILY #10 tabs 02/01/22 hydrocodone-homatropine 5 mg-1.5 5 ml PO Q6H PRN cough #60 mL 03/01/22 mg/5 mL (5 mL) oral syrup (Hycodan) loperamide 2 mg tablet (Imodium 2 mg PO Q6H PRN loose stool #20 03/01/22 A-D) tabs azithromycin 250 mg tablet See Rx Instructions PO .COMPLEX #6 05/16/22 tabs benzonatate 100 mg capsule 100 mg PO TID PRN cough #14 caps 05/16/22 xauwvlqtgy-qumftsdelxkbv-wjcdwfoh 1 cap PO Q4-6H PRN headache #14 05/16/22 50 mg-300 mg-40 mg capsule caps (Fioricet) albuterol sulfate 0.63 mg/3 mL 0.63 mg (3 mL) inhalation QID PRN 06/23/22 solution for nebulization shortness of breath or wheezing #75 mL albuterol sulfate 90 mcg/actuation 1 inh inhalation QID PRN shortness 06/23/22 aerosol inhaler of breath or wheezing #8.5 grams codeine 10 mg-guaifenesin 100 mg/5 5 ml PO Q6H PRN cold symptoms #120 06/23/22 mL oral liquid (Guaifenesin AC) mL nebulizers (AeroEclipse II #1 ea 06/23/22 Nebulizer) prednisone 20 mg tablet 40 mg PO DAILY rash 5 days #10 tabs 06/23/22 cephalexin 500 mg capsule 500 mg PO BID 10 days #20 caps 10/25/22 doxycycline monohydrate 100 mg 100 mg PO BID 10 days #20 tabs 10/25/22 tablet azithromycin 250 mg tablet See Rx Instructions PO .COMPLEX #6 10/30/22 (Zithromax Z-Matteo) tabs prednisone 10 mg tablet 10 mg PO BID #10 tabs 10/30/22 ibuprofen 600 mg tablet 600 mg PO Q6H PRN fever or pain 01/24/23 #14 tabs metoclopramide HCl 10 mg tablet 10 mg PO Q6H PRN nausea and 01/28/23 (Reglan) vomiting #15 tabs Allergies Allergy/AdvReac Type Severity Reaction Status Date / Time aspirin [ASA] Allergy Intermediate HIVES Verified 01/24/23 12:47 soybean [SOYBEAN] Allergy Intermediate RASH Verified 01/24/23 12:47 Review of Systems Review of Systems: Yes all other systems are reviewed and are negative Constitutional: Constitutional: Denies chills, Reports fatigue, Denies fever(s), Denies headache(s) and Reports poor appetite ENT: Denies headache(s) Cardiovascular: Cardiovascular: Denies chest pain and Denies dyspnea Respiratory: Respiratory: Denies dyspnea Gastrointestinal: Gastrointestinal: Denies abdominal pain, Denies bloating, Denies constipation, Denies heartburn, Reports diarrhea, Reports nausea, Reports vomiting and Denies hematemesis Neurologic: Denies headache(s) Endocrine: Endocrine: Reports fatigue PMFSH Past Medical History Attestation statement: The following information was validated with the patient. Source: old records reviewed Medical History Asthma HTN (hypertension) Kidney stones Surgical History H/O gastric bypass Hx of cholecystectomy Social History Social History Alcohol intake: never Patient Tobacco Use Status: Never used Tobacco Advance Directives: Yes Advance Directives on File: Yes Advance Directives Date on File: 05/16/22 Physical Exam Vital Signs: Vital Signs: Last Vital Signs Temp 98.6 F 01/28/23 06:52 Pulse 78 01/28/23 10:37 Resp 19 01/28/23 10:37 BP 133/71 01/28/23 10:37 Pulse Ox 98 01/28/23 10:37 O2 Del Method Room Air 01/28/23 08:29 BMI result Body Mass Index 39.5 Const: General: cooperative, no acute distress, alert, awake and Physically active; No anxious or ill appearing Orientation/consciousness: oriented to person, oriented to place and oriented to time Limitations: no limitations Chest: Chest palpation & inspection: normal inspection of the chest Resp: Effort & Inspection: normal respiratory effort and able to speak in complete sentences Auscultation: clear to auscultation bilaterally Cardio: Rate: regular rate Rhythm: regular rhythm Heart sounds: S1 normal heart sound present, S2 normal heart sound present, no gallops, no murmurs and no rubs Peripheral pulses: posterior tibial pulses present and dorsalis pedis present GI: Other: abdomen soft, non distended, mildly tender to palpation in the epigastric region. No guarding or rebound tenderness. Inspection: Yes normal to inspection, No distended and Yes obesity Palpation (GI): Soft to palpation and nontender Neuro: General: oriented to person, oriented to place and oriented to time Course Reevaluation(s) Reevaluation #1: Patient is feeling better, nausea is gone. Has not vomited. White count normal. LFTs mildly elevated with normal bilirubin. Will obtain RUQ ultrasound of liver, CBD. Time: 09:16 Reevaluation #2: On reexam, discussed results of LFTs and ultrasound. Patient is feeling better. Plan for discharge. Time: 10:16 Medications Administered Discontinued Medications Generic Name Dose Route Start Last Admin Trade Name Freq PRN Reason Stop Dose Admin Sodium Chloride 1,000 mls @ 999 mls/hr 01/28/23 07:45 01/28/23 07:54 Ns IVCONT 01/28/23 08:45 999 mls/hr .Q1H1M JENNY Administration Metoclopramide HCl 10 mg 01/28/23 07:36 01/28/23 07:54 Metoclopramide Hcl 10 Mg/2 Ml Vial IVPUSH 01/28/23 07:37 10 mg ONCE ONE Administration Medical Decision Making Medical Decision Making [facility] Narrative: 52 year old female with history of T2DM on metformin presents today with continued N/V/D. Seen in ED 4 days ago and diagnosed with a viral syndrome. Physical exam significant for mild epigastric tenderness, no rebound or guarding. Plan: labs Differential Diagnosis Differential Diagnoses: The differential diagnosis associated with the presentation includes Unlikely cholecystitis as patient s/p cholecystectomy. Low suspicion for appendicitis as patients white count is WNL. Unlikely bowel obstruction, abd non distended. Lab Data [facility] Lab Attestation statement: I reviewed the patient's lab results. 01/28/23 07:06 01/28/23 07:06 Labs: Lab Results 01/28/23 01/28/23 01/28/23 Range/Units 07:06 07:06 07:23 WBC 7.0 (4.8-10.8) X10*3/uL RBC 4.52 (4.20-5.50) X10*6/uL Hgb 12.7 (12.0-16.0) g/dl Hct 38.2 (37.0-47.0) % MCV 84.5 (80.0-98.0) fL MCH 28.1 (27.0-33.0) pg MCHC 33.2 (31.0-35.0) g/dl RDW 12.6 (11.0-16.0) % Plt Count 224 (160-400) X10*3/uL MPV 11.7 (9.4-12.3) fL Immature Gran % (Auto) 0.1 (0.0-0.4) % Neut % (Auto) 54.4 (45-73) % Lymph % (Auto) 36.5 (20-40) % [place] % (Auto) 5.3 (2-11) % Eos % (Auto) 3.3 (0-4) % Baso % (Auto) 0.4 (0-2) % Lymph # (Auto) 2.5 (1.2-4.9) X10*3/uL [place] # (Auto) 0.4 (0.1-1.2) X10*3/uL Eos # (Auto) 0.2 (0.0-0.4) X10*3/uL Baso # (Auto) 0.0 (0.0-0.2) X10*3/uL Abs Immat Gran (auto) 0.01 (0.00-0.03) X10*3/uL Absolute Neuts (auto) 3.8 (2.0-8.3) x10*3/uL Absolute Nucleated RBC 0.000 (0.0-0.012) X10*3/uL Nucleated RBC % (auto) 0.0 (0.0-0.2) /100WBC Sodium 140 (135-145) mmol/L Potassium 3.8 (3.3-5.1) mmol/L Chloride 109 H (96-108) mmol/L Carbon Dioxide 23 (22-29) mmol/L Anion Gap 12 (12-20) BUN 16 (9-16) mg/dL Creatinine 0.74 (0.5-1.4) mg/dL Estim Creat Clear Calc 102.3 Estimated GFR > 60 Random Glucose 135 H (60-115) mg/dL Calcium 9.4 (8.4-10.2) mg/dL Total Bilirubin 0.4 (0.0-1.0) mg/dL Direct Bilirubin 0.2 (0.0-0.5) mg/dL AST 146 H (5-31) U/L ALT 77 H (0-31) U/L Alkaline Phosphatase 131 H (39-117) U/L Total Protein 6.5 (6.5-8.0) g/dL Albumin 3.8 (3.5-5.0) g/dL Lipase 16 (8-78) U/L Urine Color Yellow Urine Appearance Clear Urine pH 6.0 (5.0-9.0) Ur Specific [place] >= 1.030 H (1.005-1.025) Urine Protein Trace (Neg-Trace) mg/dL Urine Glucose (UA) Negative (Negative) mg/dL Urine Ketones Negative (Negative) mg/dL Urine Blood Negative (Negative) Urine Nitrite Negative (Negative) Ur Leukocyte Esterase Negative (Negative) Independent Interpretation I performed an independent interpretation of an: Ultrasound Interpretation: Enlarged liver Radiology Impression Discussion of test interpretation with radiology: I have reviewed the radiologist's reading. Radiologist Impression: Hepatic steatosis External Record Review External record reviewed: Inpatient record Emergency room record Tests considered The following testing was considered but not selected: CT scan of abd/pelvis however normal white count, low yield Chronic Conditions Patient?s care impacted by: Diabetes and Other (asthma) Discharge Plan Discharge Clinical Impression: Nausea & vomiting, Elevated LFTs, Hepatic steatosis Patient Disposition: Home, Self-Care Instructions: Acute Nausea and Vomiting (ED), Non-Alcoholic Fatty Liver Disease (ED) Additional Instructions: We discussed following up with your primary care physician. Rpeat LFTs outpatient with PCP. Return if worse. Prescriptions: New metoclopramide HCl [Reglan] 10 mg tablet 10 mg PO Q6H PRN (Reason: nausea and vomiting) Qty: 15 0RF No Action cyclobenzaprine 10 mg tablet 10 mg PO TID PRN (Reason: muscle spasm) Qty: 14 0RF ondansetron 4 mg tablet,disintegrating 4 mg PO Q8H PRN (Reason: nausea and vomiting) Qty: 20 0RF omeprazole 40 mg capsule,delayed release(DR/EC) 40 mg PO DAILY 30 Days Qty: 30 0RF Robitussin Cough and Cold CF 2.5-5-50 mg/5 mL liquid 20 ml PO Q4H PRN (Reason: cough) Qty: 118 0RF naproxen [Naprosyn] 500 mg tablet 500 mg PO BID Qty: 20 0RF loperamide [Imodium A-D] 2 mg tablet 2 mg PO Q6H PRN (Reason: loose stool) Qty: 20 0RF hydrocodone-homatropine [Hycodan] 5-1.5 mg/5 mL (5 mL) syrup 5 ml PO Q6H PRN (Reason: cough) Qty: 60 0RF Rx Instructions: Partial Fill upon patient request. ondansetron HCl [Zofran] 4 mg tablet 4 mg PO Q8H PRN (Reason: nausea and vomiting) Qty: 10 0RF benzonatate [Tessalon Perles] 100 mg capsule 100 mg PO TID PRN (Reason: cough) 5 Days Qty: 20 0RF ibuprofen 400 mg tablet 400 mg PO Q6H PRN (Reason: pain) Qty: 20 0RF cyclobenzaprine 10 mg tablet 10 mg PO TID PRN (Reason: muscle spasm) 7 Days Qty: 21 0RF azithromycin 250 mg tablet 250 mg PO DAILY 6 Days Qty: 6 0RF Rx Instructions: start on day 2 of therapy prednisone 20 mg tablet 40 mg PO DAILY Qty: 10 0RF benzonatate 200 mg capsule 200 mg PO TID PRN (Reason: cough) Qty: 20 0RF azithromycin 250 mg tablet See Rx Instructions .ROUTE .COMPLEX Qty: 6 0RF Rx Instructions: take 500 mg today (day 1), then 250 mg for 4 days (days 2-5) benzonatate 100 mg capsule 100 mg PO TID PRN (Reason: cough) Qty: 14 0RF ghesxmrkze-npcxzoefjdvct-vrxj [Fioricet] 50-300-40 mg capsule 1 cap PO Q4-6H PRN (Reason: headache) Qty: 14 0RF (DME) nebulizers [AeroEclipse II Nebulizer] [facility] [place] See Rx Instructions .ROUTE .MEDSUPPLY Qty: 1 0RF Rx Instructions: As directed albuterol sulfate 0.63 mg/3 mL solution for nebulization 0.63 mg inhalation QID PRN (Reason: shortness of breath or wheezing) Qty: 75 0RF albuterol sulfate 90 mcg/actuation HFA aerosol inhaler 1 inh inhalation QID PRN (Reason: shortness of breath or wheezing) Qty: 8.5 0RF prednisone 20 mg tablet 40 mg PO DAILY 5 Days Qty: 10 0RF codeine-guaifenesin [Guaifenesin AC] 10-100 mg/5 mL liquid 5 ml PO Q6H PRN (Reason: cold symptoms) Qty: 120 0RF doxycycline monohydrate 100 mg tablet 100 mg PO BID 10 Days Qty: 20 0RF cephalexin 500 mg capsule 500 mg PO BID 10 Days Qty: 20 0RF azithromycin [Zithromax Z-Matteo] 250 mg tablet See Rx Instructions .ROUTE .COMPLEX Qty: 6 0RF Rx Instructions: For 250 mg dose pack: take 500 mg today (day 1), then 250 mg for 4 days (days 2-5) prednisone 10 mg tablet 10 mg PO BID Qty: 10 0RF ibuprofen 600 mg tablet 600 mg PO Q6H PRN (Reason: fever or pain) Qty: 14 0RF Interventions: ED Discharge Assessment Last Done: 01/28/23 10:36 Discharge Date/Time: 01/28/23 10:37
--- NOTE | 2023-01-28 09:17 | PC.NURSE ---
sleeping, skin wpd, nad, easily woken, and back to sleep. awaiting u/s
[2023-01-28 10:37] VITALS: BP 133/71; PULSE 78; RESP 19; O2SAT 98
== END 2023-01-28 10:37 | disposition home or self-care (01) ==
PROVIDERS: Emergency Provider Emergency Medicine; PCP Internal Medicine
DX: R11.2 Nausea with vomiting, unspecified (principal); R79.89 Other specified abnormal findings of blood chemistry; K76.0 Fatty (change of) liver, not elsewhere classified; I10 Essential (primary) hypertension; Z79.899 Other long term (current) drug therapy
CPT/HCPCS: 36415; 76705; 80048; 80076; 81003; 83690; 85025; 96374; 99283; 99284; J2765

== ENCOUNTER 2023-06-27 06:23 | Emergency (ER) | payer MEDICARE, MEDICAID, SELFPAY ==
--- NOTE | ~2023-06-27 | XR_ITS ---
EXAMINATION: XR CHEST CLINICAL INFORMATION: Cough, shortness of breath COMPARISON: X-ray 01/24/2023 TECHNIQUE: 2 views of the chest were obtained. FINDINGS: The cardiomediastinal silhouette is within normal limits. Stable mild right hemidiaphragm elevation. There is no focal consolidation, edema, or effusion. No pneumothorax. No acute osseous abnormality. XR/XR chest 2V IMPRESSION: No acute pulmonary process seen.
[2023-06-27 06:33] VITALS: BP 140/84; PULSE 84; RESP 20; TEMP 36.1; O2SAT 99; BMI 40.7
[2023-06-27 06:42] VITALS: O2SAT 96
--- NOTE | 2023-06-27 06:47 | ED.URI ---
HPI - URI/Sore Throat General Chief Complaint: Upper Respiratory Symptoms Stated Complaint: Flu Like Symptoms Time Seen by Provider: 06/27/23 06:42 Source: patient Mode of arrival: ambulatory Limitations: no limitations History of Present Illness HPI Narrative: 52 year old female with pmhx significant for asthma presents to the ED today for body aches, dry cough, and headache x3 days. Endorses COVID exposure 4 days ago. States she's been evaluated by her PCP for this over the last month who prescribed her a steroid and albuterol inhaler for suspected asthma exacerbation. Symptoms have continued despite treatment. Cough is not productive of sputum. Admits to past hospitalizations for asthma, bronchitis and pneumonia. Denies documented fever at home. Additionally reports 3 weeks of intermittent loose stools and mild epigastric discomfort. Denies pain. Denies etoh or ilicit substance use. Denies dizziness, neck or back pain, chest pain, n/v, abdominal pain, constipation, hematochezia, melena, dysuria, hematuria. Related Data Previous Rx's Medication Instructions Recorded cyclobenzaprine 10 mg tablet 10 mg PO TID PRN muscle spasm #14 07/29/20 tabs ondansetron 4 mg disintegrating 4 mg PO Q8H PRN nausea and 07/29/20 tablet vomiting #20 tabs benzonatate 100 mg capsule 100 mg PO TID PRN cough 5 days #20 05/22/21 (Tesbakari Rand) caps ibuprofen 400 mg tablet 400 mg PO Q6H PRN pain #20 tabs 05/22/21 ondansetron HCl 4 mg tablet 4 mg PO Q8H PRN nausea and 05/22/21 (Zofran) vomiting #10 tabs omeprazole 40 mg capsule,delayed 40 mg PO DAILY 30 days #30 caps 05/31/21 release naproxen 500 mg tablet (Naprosyn) 500 mg PO BID #20 tabs 07/16/21 gpwhedxmuqogq-VE-vhfufwcmmpu 2.5 20 ml PO Q4H PRN cough #118 mL 07/16/21 mg-5 mg-50 mg/5 mL oral liquid (Robitussin Cough and Cold CF) cyclobenzaprine 10 mg tablet 10 mg PO TID PRN muscle spasm 7 12/31/21 days #21 tabs azithromycin 250 mg tablet 250 mg PO DAILY 6 days #6 tabs 02/01/22 benzonatate 200 mg capsule 200 mg PO TID PRN cough #20 caps 02/01/22 prednisone 20 mg tablet 40 mg (2 x 20 mg) PO DAILY #10 tabs 02/01/22 hydrocodone-homatropine 5 mg-1.5 5 ml PO Q6H PRN cough #60 mL 03/01/22 mg/5 mL (5 mL) oral syrup (Hycodan) loperamide 2 mg tablet (Imodium 2 mg PO Q6H PRN loose stool #20 03/01/22 A-D) tabs azithromycin 250 mg tablet See Rx Instructions PO .COMPLEX #6 05/16/22 tabs benzonatate 100 mg capsule 100 mg PO TID PRN cough #14 caps 05/16/22 [id number]-[id number]-zufhabxs 1 cap PO Q4-6H PRN headache #14 05/16/22 50 mg-300 mg-40 mg capsule caps (Fioricet) albuterol sulfate 0.63 mg/3 mL 0.63 mg (3 mL) inhalation QID PRN 06/23/22 solution for nebulization shortness of breath or wheezing #75 mL albuterol sulfate 90 mcg/actuation 1 inh inhalation QID PRN shortness 06/23/22 aerosol inhaler of breath or wheezing #8.5 grams codeine 10 mg-guaifenesin 100 mg/5 5 ml PO Q6H PRN cold symptoms #120 06/23/22 mL oral liquid (Guaifenesin AC) mL nebulizers (AeroEclipse II #1 ea 06/23/22 Nebulizer) prednisone 20 mg tablet 40 mg (2 x 20 mg) PO DAILY rash 5 06/23/22 days #10 tabs cephalexin 500 mg capsule 500 mg PO BID 10 days #20 caps 10/25/22 doxycycline monohydrate 100 mg 100 mg PO BID 10 days #20 tabs 10/25/22 tablet azithromycin 250 mg tablet See Rx Instructions PO .COMPLEX #6 10/30/22 (Zithromax Z-Matteo) tabs prednisone 10 mg tablet 10 mg PO BID #10 tabs 10/30/22 ibuprofen 600 mg tablet 600 mg PO Q6H PRN fever or pain 01/24/23 #14 tabs metoclopramide HCl 10 mg tablet 10 mg PO Q6H PRN nausea and 01/28/23 (Reglan) vomiting #15 tabs benzonatate 200 mg capsule 200 mg PO BID PRN cough 10 days 06/27/23 #20 caps Allergies Allergy/AdvReac Type Severity Reaction Status Date / Time aspirin [ASA] Allergy Intermediate HIVES Verified 01/24/23 12:47 soybean [SOYBEAN] Allergy Intermediate RASH Verified 01/24/23 12:47 Review of Systems Review of Systems: Constitutional: No fever, chills, fatigue, night sweats, weight changes ENT/Mouth: No ear pain, hearing loss, nasal congestion, sinus pain, rhinorrhea, sore throat Eyes: No eye pain, swelling, redness, vision changes, discharge Cardio: No chest pain, palpitations, GOOD, orthopnea, peripheral edema Pulm: No SOB, +cough, sputum, wheezing, dyspnea, hemoptysis GI: No nausea, vomiting, hematemesis, +abdominal pain, +diarrhea, no constipation, hematochezia, melena : No irregular bleeding, dysuria, frequency, urgency, hesitancy, hematuria, flank pain, urinary flow changes, urinary incontinence or retention MSK: No back pain, neck pain, joint pain, myalgias Skin: No lesions, rashes Neuro: No weakness, numbness, paresthesias, LOC, dizziness, headache All other systems reviewed and are negative. [facility] Past Medical History Attestation statement: The following information was validated with the patient. Source: old records reviewed and nursing notes reviewed Medical History Asthma HTN (hypertension) Kidney stones Surgical History H/O gastric bypass Hx of cholecystectomy Social History Social History Alcohol intake: never Patient Tobacco Use Status: Never used Tobacco Advance Directives: Yes Advance Directives on File: Yes Advance Directives Date on File: 05/16/22 Physical Exam Vital Signs: Vital Signs: Last Vital Signs Temp 97.0 F 06/27/23 06:33 Pulse 68 06/27/23 07:29 Resp 18 06/27/23 07:29 BP 140/84 H 06/27/23 06:33 Pulse Ox 96 06/27/23 06:42 O2 Del Method Room Air 11/14/23 06:42 BMI result Body Mass Index 40.7 Vital signs stable Const: General: cooperative, no acute distress, alert and awake Orientation/consciousness: patient oriented x3 Limitations: no limitations HEENT: Head: Yes normal to inspection Ears: hearing grossly normal bilaterally General nose exam: Normal external nose present Face and sinus: Yes normal facial exam and Yes sinuses nontender Mouth: Normal oral and palatal mucosa present and moist mucous membranes Throat: Yes posterior oropharynx normal, Yes tonsils normal and Yes uvula midline Eyes: General: appearance normal, both eyes and all related structures Conjunctivae: conjunctivae normal Sclerae: sclerae normal Pupils: Equal, round and reactive pupils present EOM: EOMs intact bilaterally Neck: Neck: Yes normal visual inspection, Yes no lymphadenopathy and Yes no meningeal signs Chest: Chest palpation & inspection: normal inspection of the chest Resp: Other: + Expiratory wheezes bilaterally Effort & Inspection: normal respiratory effort Cardio: Rate: regular rate Rhythm: regular rhythm Peripheral pulses: radial pulses present GI: Inspection: Yes normal to inspection Palpation (GI): Soft to palpation, nontender, no guarding and No Rebound tenderness present Skin: General skin exam: no rashes or lesions noted Neuro: General: patient oriented x3, gait normal, moves all extremities and no meningeal signs Cranial nerves: Yes CN's II-XII intact bilaterally and Yes Equal, round and reactive pupils present Extrem: General: Yes normal to inspection, Yes capillary refill normal and Yes no joint enlargement Course Course Course Narrative: 0807-- Serology negative for flu, RSV, COVID. Symptoms not consistent with strep throat or mono so swabs not obtained. CXR showing normal cardiac silhouette, no focal consolidations or infiltrates to suggest pneumonia. Hemidiaphragms are not obscured to suggest effusion. Given patient's intermittent diarrhea over the last 3 weeks and mild epigastric discomfort, will obtain basic labs and administer IV fluids. Plan for re-evaluation. 0838-- Patient evaluated by RT > one dose of albuterol administered. On re-evaluation, patient's lungs are CTA b/l. Awaiting basic labs and IVF completion. 1015-- CBC without leukocytosis or anemia. Chemistry without acute electrolyte abnormality requiring intervention. Lipase WNL > unlikely pancreatitis. Beta hCG undetectable > not . Symptoms are consistent with URI, likely viral. I do not believe antibiotics are warranted at this time. Informed patient of lab and imaging results. Will send Asael Rand to patient's pharmacy for cough. Discussed strict return precautions. All questions answered at this time. Patient is agreeable disposition and stable for discharge. Medications Administered Discontinued Medications Generic Name Dose Route Start Last Admin Trade Name Antoineq PRN Reason Stop Dose Admin Albuterol Sulfate 2.5 mg 06/27/23 07:18 06/27/23 07:28 Albuterol Sulfate (0.083%) 2.5 Mg/3 Ml Vial.Neb INHALE 06/27/23 07:19 2.5 mg ONCE ONE Administration Sodium Chloride 1,000 mls @ 999 mls/hr 06/27/23 08:15 06/27/23 10:43 Ns IV 06/27/23 09:15 Infused .Q1H1M JENNY Infusion Medical Decision Making Medical Decision Making [facility] Narrative: 52 year old female with pmhx significant for asthma presents to the ED today for body aches, dry cough, and headache x3 days. VSS. Afebrile. Patient is nontoxic appearing and in NAD. RRR. Lungs with bilateral expiratory wheezes. Abd soft, NT/ND, no rebound tenderness or guarding, normoactive BS x4. Clinical concern for viral syndrome, bronchitis, pneumonia, asthma exacerbation, gastroenteritis. Plan at this time is viral serology, CXR, and ed bronch protocol. Differential Diagnosis Differential Diagnoses: The differential diagnosis associated with the presentation includes As above. Admission/Observation Not indicated. Lab Data [facility] Lab Attestation statement: I reviewed the patient's lab results. As above. 06/27/23 09:36 06/27/23 09:36 Labs: Lab Results 06/27/23 06/27/23 Range/Units 06:31 09:36 WBC 7.7 (4.8-10.8) X10*3/uL RBC 4.43 (4.20-5.50) X10*6/uL Hgb 12.4 (12.0-16.0) g/dl Hct 38.1 (37.0-47.0) % MCV 86.0 (80.0-98.0) fL MCH 28.0 (27.0-33.0) pg MCHC 32.5 (31.0-35.0) g/dl RDW 14.1 (11.0-16.0) % Plt Count 201 (160-400) X10*3/uL MPV 11.4 (9.4-12.3) fL Immature Gran % (Auto) 0.1 (0.0-0.4) % Neut % (Auto) 72.7 (45-73) % Lymph % (Auto) 20.5 (20-40) % [place] % (Auto) 4.6 (2-11) % Eos % (Auto) 1.7 (0-4) % Baso % (Auto) 0.4 (0-2) % Lymph # (Auto) 1.6 (1.2-4.9) X10*3/uL [place] # (Auto) 0.4 (0.1-1.2) X10*3/uL Eos # (Auto) 0.1 (0.0-0.4) X10*3/uL Baso # (Auto) 0.0 (0.0-0.2) X10*3/uL Abs Immat Gran (auto) 0.01 (0.00-0.03) X10*3/uL Absolute Neuts (auto) 5.6 (2.0-8.3) x10*3/uL Absolute Nucleated RBC 0.000 (0.0-0.012) X10*3/uL Nucleated RBC % (auto) 0.0 (0.0-0.2) /100WBC Sodium 143 (135-145) mmol/L Potassium 3.8 (3.3-5.1) mmol/L Chloride 106 (96-108) mmol/L Carbon Dioxide 28 (22-29) mmol/L Anion Gap 13 (12-20) BUN 12 (9-16) mg/dL Creatinine 0.68 (0.5-1.4) mg/dL Estim Creat Clear Calc 109.2 Estimated GFR > 60 Random Glucose 178 H (60-115) mg/dL Calcium 9.2 (8.4-10.2) mg/dL Magnesium 1.7 (1.6-2.6) mg/dL Total Bilirubin 0.4 (0.0-1.0) mg/dL AST 18 (5-31) U/L ALT 22 (0-31) U/L Alkaline Phosphatase 102 (39-117) U/L Total Protein 7.0 (6.5-8.0) g/dL Albumin 3.9 (3.5-5.0) g/dL Lipase 9 (8-78) U/L Beta HCG, Quant 4 mIU/mL Influenza Type A (PCR) NEGATIVE (Negative) Influenza Type B (PCR) NEGATIVE (Negative) RSV RNA Qual (PCR) NEGATIVE (Negative) SARS-CoV-2 RNA (RT-PCR) NEGATIVE (Negative) Independent Interpretation I performed an independent interpretation of an: Plain X-Ray Interpretation: CXR without consolidations or infiltrates, agree with radiologist's interpretation. Radiology Impression Discussion of test interpretation with radiology: I have reviewed the radiologist's reading. Radiologist Impression: XR chest 2V IMPRESSION: No acute pulmonary process seen. External Record Review External record reviewed: Inpatient record Prescription Management I considered prescription management with: Pain Medication Chronic Conditions Patient?s care impacted by: Other (asthma) Critical Care Time Critical Care Time Critical Care Time: No Discharge Plan Discharge Clinical Impression: Upper respiratory infection Patient Disposition: Home, Self-Care Instructions: Upper Respiratory Infection (ED), Viral Syndrome (ED) Additional Instructions: Today tested negative for COVID, influenza, RSV. Her symptoms are not consistent with strep throat and thus you were not tested for this. Your labs today are reassuring and did not show signs of infection or acute electrolyte abnormalities. Take Ibuprofen or Tylenol as needed for fevers or body aches.? Asael Rand have been sent to your pharmacy. Take these as needed for cough. Follow-up with your primary care provider this week. Return to the emergency department with new or worsening symptoms. In case of emergency call 911 Prescriptions: New benzonatate 200 mg capsule 200 mg PO BID PRN (Reason: cough) 10 Days Qty: 20 0RF No Action cyclobenzaprine 10 mg tablet 10 mg PO TID PRN (Reason: muscle spasm) Qty: 14 0RF ondansetron 4 mg tablet,disintegrating 4 mg PO Q8H PRN (Reason: nausea and vomiting) Qty: 20 0RF omeprazole 40 mg capsule,delayed release(DR/EC) 40 mg PO DAILY 30 Days Qty: 30 0RF Robitussin Cough and Cold CF 2.5-5-50 mg/5 mL liquid 20 ml PO Q4H PRN (Reason: cough) Qty: 118 0RF naproxen [Naprosyn] 500 mg tablet 500 mg PO BID Qty: 20 0RF loperamide [Imodium A-D] 2 mg tablet 2 mg PO Q6H PRN (Reason: loose stool) Qty: 20 0RF hydrocodone-homatropine [Hycodan] 5-1.5 mg/5 mL (5 mL) syrup 5 ml PO Q6H PRN (Reason: cough) Qty: 60 0RF Rx Instructions: Partial Fill upon patient request. ondansetron HCl [Zofran] 4 mg tablet 4 mg PO Q8H PRN (Reason: nausea and vomiting) Qty: 10 0RF benzonatate [Tessalon Perles] 100 mg capsule 100 mg PO TID PRN (Reason: cough) 5 Days Qty: 20 0RF ibuprofen 400 mg tablet 400 mg PO Q6H PRN (Reason: pain) Qty: 20 0RF cyclobenzaprine 10 mg tablet 10 mg PO TID PRN (Reason: muscle spasm) 7 Days Qty: 21 0RF azithromycin 250 mg tablet 250 mg PO DAILY 6 Days Qty: 6 0RF Rx Instructions: start on day 2 of therapy prednisone 20 mg tablet 40 mg PO DAILY Qty: 10 0RF benzonatate 200 mg capsule 200 mg PO TID PRN (Reason: cough) Qty: 20 0RF azithromycin 250 mg tablet See Rx Instructions .ROUTE .COMPLEX Qty: 6 0RF Rx Instructions: take 500 mg today (day 1), then 250 mg for 4 days (days 2-5) benzonatate 100 mg capsule 100 mg PO TID PRN (Reason: cough) Qty: 14 0RF sybihknnmg-pbeguakzeeori-xvnf [Fioricet] 50-300-40 mg capsule 1 cap PO Q4-6H PRN (Reason: headache) Qty: 14 0RF (DME) nebulizers [AeroEclipse II Nebulizer] Misc See Rx Instructions .ROUTE .MEDSUPPLY Qty: 1 0RF Rx Instructions: As directed albuterol sulfate 0.63 mg/3 mL solution for nebulization 0.63 mg inhalation QID PRN (Reason: shortness of breath or wheezing) Qty: 75 0RF albuterol sulfate 90 mcg/actuation HFA aerosol inhaler 1 inh inhalation QID PRN (Reason: shortness of breath or wheezing) Qty: 8.5 0RF prednisone 20 mg tablet 40 mg PO DAILY 5 Days Qty: 10 0RF codeine-guaifenesin [Guaifenesin AC] 10-100 mg/5 mL liquid 5 ml PO Q6H PRN (Reason: cold symptoms) Qty: 120 0RF doxycycline monohydrate 100 mg tablet 100 mg PO BID 10 Days Qty: 20 0RF cephalexin 500 mg capsule 500 mg PO BID 10 Days Qty: 20 0RF azithromycin [Zithromax Z-Matteo] 250 mg tablet See Rx Instructions .ROUTE .COMPLEX Qty: 6 0RF Rx Instructions: For 250 mg dose pack: take 500 mg today (day 1), then 250 mg for 4 days (days 2-5) prednisone 10 mg tablet 10 mg PO BID Qty: 10 0RF ibuprofen 600 mg tablet 600 mg PO Q6H PRN (Reason: fever or pain) Qty: 14 0RF metoclopramide HCl [Reglan] 10 mg tablet 10 mg PO Q6H PRN (Reason: nausea and vomiting) Qty: 15 0RF Referrals: Physician,Unknown J [Primary Care Provider] - Stand Alone Forms: Work/School Release Interventions: ED Discharge Assessment Last Done: 06/27/23 10:54 Discharge Date/Time: 06/27/23 10:55 Print Language: Spanish
[2023-06-27 07:25] LABS: Influenza A PCR NEGATIVE (Negative); Influenza B PCR NEGATIVE (Negative); Resp Syncy Virus RNA Qual PCR NEGATIVE (Negative); SARS COV2 PCR INHOUSE NEGATIVE (Negative)
[2023-06-27] MEDS: Albuterol Sulfate (0.083%) 2.5 MG/3 ML VIAL.NEB INHALE (07:28)
[2023-06-27 07:29] VITALS: PULSE 68; RESP 18; O2SAT 100
[2023-06-27] MEDS: 0.9 % Sodium Chloride 1,000 ML 999 ML IV (09:23)
[2023-06-27 09:40] LABS: MANUAL DIFF FLAG NO
[2023-06-27 09:42] LABS: Basophils Percent Auto 0.4 % (0-2); Eosinophils Absolute Auto 0.1 X10*3/uL (0.0-0.4); Eosinophils Percent Auto 1.7 % (0-4); Hematocrit 38.1 % (37.0-47.0); Hemoglobin 12.4 g/dl (12.0-16.0); Imm Gran Abs Auto 0.01 X10*3/uL (0.00-0.03); Imm Gran Pct Auto 0.1 % (0.0-0.4); Lymphocytes Absolute Auto 1.6 X10*3/uL (1.2-4.9); Lymphocytes Percent Auto 20.5 % (20-40); Mean Corpuscular HGB Conc 32.5 g/dl (31.0-35.0); Mean Platelet Volume 11.4 fL (9.4-12.3); Monocytes Absolute Auto 0.4 X10*3/uL (0.1-1.2); Monocytes Percent Auto 4.6 % (2-11); Neutrophils Absolute Auto 5.6 x10*3/uL (2.0-8.3); Neutrophils Percent Auto 72.7 % (45-73); Platelet Count 201 X10*3/uL (160-400); Red Blood Count 4.43 X10*6/uL (4.20-5.50); Red Cell Distribution Width 14.1 % (11.0-16.0); White Blood Count 7.7 X10*3/uL (4.8-10.8)
[2023-06-27 09:55] LABS: Alanine Aminotransferase 22 U/L (0-31); Albumin Level 3.9 g/dL (3.5-5.0); Alkaline Phosphatase 102 U/L (39-117); Anion Gap 13 (12-20); Aspartate Amino Transferase 18 U/L (5-31); Bilirubin Total 0.4 mg/dL (0.0-1.0); Blood Urea Nitrogen 12 mg/dL (9-16); Calcium 9.2 mg/dL (8.4-10.2); Carbon Dioxide 28 mmol/L (22-29); Chloride 106 mmol/L (96-108); Creatinine Clr Calc Pharmacy 109.2; Estimated Glomerular Filt Rate > 60; Glucose Random 178 mg/dL (60-115); Lipase 9 U/L (8-78); Magnesium 1.7 mg/dL (1.6-2.6); Potassium 3.8 mmol/L (3.3-5.1); Sodium 143 mmol/L (135-145)
[2023-06-27 10:02] LABS: HCG Quantitative 4 mIU/mL
--- NOTE | 2023-06-27 10:33 | PC.NURSE ---
LATE ENTRY:0930- PT DIFFICULT STICK 3 ATTEMPTS MADE, 22G IV INSERTED L HAND. LABS DRAWN. FLUIDS STARTED DOCUMENTED. VSS, DENIES PAIN.
== END 2023-06-27 10:55 | disposition home or self-care (01) ==
PROVIDERS: Physician Assistant Medical; Emergency Provider Emergency Medicine
DX: J06.9 Acute upper respiratory infection, unspecified (principal); R05.9 Cough, unspecified; R51.9 Headache, unspecified; Z20.822 Contact with and (suspected) exposure to COVID-19; Z20.828 Contact with and (suspected) exposure to other viral communicable diseases; R10.13 Epigastric pain; I10 Essential (primary) hypertension
CPT/HCPCS: 0241U; 36415; 71046; 80053; 83690; 83735; 84702; 85025; 94640; 96360; 99284; 99285

== ENCOUNTER 2023-10-11 23:46 | Emergency (ER) | payer MEDICARE, MEDICAID, SELFPAY ==
--- NOTE | ~2023-10-11 | XR_ITS ---
EXAMINATION: XR CHEST CLINICAL INFORMATION: Cough, shortness of breath COMPARISON: 06/27/2023 TECHNIQUE: Frontal view of the chest was obtained. FINDINGS: The lungs are clear with no focal consolidation. No evidence of pneumothorax, pulmonary edema, or pleural effusions. The cardiomediastinal silhouette is unremarkable. No acute osseous findings. XR/XR chest 1V IMPRESSION: No acute cardiopulmonary findings.
[2023-10-12 00:10] VITALS: BP 151/83; PULSE 96; RESP 59; TEMP 36.6; O2SAT 95; BMI 40.7
--- NOTE | 2023-10-12 01:00 | ED_ITS ---
HPI - URI/Sore Throat General Chief Complaint: Upper Respiratory Symptoms Stated Complaint: Sob/Cough Time Seen by Provider: 10/12/23 00:30 Source: patient Mode of arrival: ambulatory History of Present Illness HPI Narrative: 52-year-old female with presentation for persistent cough and congestion with headache for the past week and son is now testing positive for COVID. Related Data Previous Rx's Medication Instructions Recorded cyclobenzaprine 10 mg tablet 10 mg PO TID PRN muscle spasm #14 07/29/20 tabs ondansetron 4 mg disintegrating 4 mg PO Q8H PRN nausea and 07/29/20 tablet vomiting #20 tabs benzonatate 100 mg capsule 100 mg PO TID PRN cough 5 days #20 05/22/21 (Tesbakari Rand) caps ibuprofen 400 mg tablet 400 mg PO Q6H PRN pain #20 tabs 05/22/21 ondansetron HCl 4 mg tablet 4 mg PO Q8H PRN nausea and 05/22/21 (Zofran) vomiting #10 tabs omeprazole 40 mg capsule,delayed 40 mg PO DAILY 30 days #30 caps 05/31/21 release naproxen 500 mg tablet (Naprosyn) 500 mg PO BID #20 tabs 07/16/21 mvvxqpurmodql-OE-hskbdcwtros 2.5 20 ml PO Q4H PRN cough #118 mL 07/16/21 mg-5 mg-50 mg/5 mL oral liquid (Robitussin Cough and Cold CF) cyclobenzaprine 10 mg tablet 10 mg PO TID PRN muscle spasm 7 12/31/21 days #21 tabs azithromycin 250 mg tablet 250 mg PO DAILY 6 days #6 tabs 02/01/22 benzonatate 200 mg capsule 200 mg PO TID PRN cough #20 caps 02/01/22 prednisone 20 mg tablet 40 mg (2 x 20 mg) PO DAILY #10 tabs 02/01/22 hydrocodone-homatropine 5 mg-1.5 5 ml PO Q6H PRN cough #60 mL 03/01/22 mg/5 mL (5 mL) oral syrup (Hycodan) loperamide 2 mg tablet (Imodium 2 mg PO Q6H PRN loose stool #20 03/01/22 A-D) tabs azithromycin 250 mg tablet See Rx Instructions PO .COMPLEX #6 05/16/22 tabs benzonatate 100 mg capsule 100 mg PO TID PRN cough #14 caps 05/16/22 nqemkdimjt-vzpuqppymiumn-imjkejxg 1 cap PO Q4-6H PRN headache #14 05/16/22 50 mg-300 mg-40 mg capsule caps (Fioricet) albuterol sulfate 0.63 mg/3 mL 0.63 mg (3 mL) inhalation QID PRN 06/23/22 solution for nebulization shortness of breath or wheezing #75 mL albuterol sulfate 90 mcg/actuation 1 inh inhalation QID PRN shortness 06/23/22 aerosol inhaler of breath or wheezing #8.5 grams codeine 10 mg-guaifenesin 100 mg/5 5 ml PO Q6H PRN cold symptoms #120 06/23/22 mL oral liquid (Guaifenesin AC) mL nebulizers (AeroEclipse II #1 ea 06/23/22 Nebulizer) prednisone 20 mg tablet 40 mg (2 x 20 mg) PO DAILY rash 5 06/23/22 days #10 tabs cephalexin 500 mg capsule 500 mg PO BID 10 days #20 caps 10/25/22 doxycycline monohydrate 100 mg 100 mg PO BID 10 days #20 tabs 10/25/22 tablet azithromycin 250 mg tablet See Rx Instructions PO .COMPLEX #6 10/30/22 (Zithromax Z-Matteo) tabs prednisone 10 mg tablet 10 mg PO BID #10 tabs 10/30/22 ibuprofen 600 mg tablet 600 mg PO Q6H PRN fever or pain 01/24/23 #14 tabs metoclopramide HCl 10 mg tablet 10 mg PO Q6H PRN nausea and 01/28/23 (Reglan) vomiting #15 tabs benzonatate 200 mg capsule 200 mg PO BID PRN cough 10 days 06/27/23 #20 caps Allergies Allergy/AdvReac Type Severity Reaction Status Date / Time aspirin [ASA] Allergy Intermediate HIVES Verified 10/12/23 00:10 soybean [SOYBEAN] Allergy Intermediate RASH Verified 10/12/23 00:10 Review of Systems Review of Systems: Pertinent positives and negatives as stated in HPI [facility] Past Medical History Source: nursing notes reviewed Medical History Asthma HTN (hypertension) Kidney stones Surgical History H/O gastric bypass Hx of cholecystectomy Social History Social History Alcohol intake: never Patient Tobacco Use Status: Never used Tobacco Advance Directives: Yes Advance Directives on File: Yes Advance Directives Date on File: 05/16/22 Physical Exam Vital Signs: Vital Signs: Last Vital Signs Temp 97.8 F 10/12/23 00:10 Pulse 96 10/12/23 00:10 Resp 59 H 10/12/23 00:10 BP 151/83 H 10/12/23 00:10 Pulse Ox 95 10/12/23 00:10 O2 Del Method Room Air 10/12/23 00:10 BMI result Body Mass Index 40.7 VITAL SIGNS: Reviewed. GENERAL: Well developed, well nourished, in no acute distress. HEAD: Normocephalic/atraumatic EYES: PERRLA, EOMI EARS: Ext canals without abnormality, TMs non-bulging and non-erythematous NOSE: Nares patent bilateral OROPHARYNX: no oral lesions noted, posterior pharynx clear and non-erythematous without noted tonsillar enlargement/erythema/exudates NECK: Supple, no adenopathy LUNGS: Normal breath sounds. No adventitious sounds or accessory muscle use. SpO2<95> CARDIOVASCULAR: Regular rate and rhythm without noted murmurs ABDOMEN: Soft, non-tender, non-distended with bowel sounds. MUSCULOSKELETAL: No tenderness, deformities, or effusions noted on gross inspection. EXTREMITIES: No cyanosis, clubbing or edema. SKIN: Inspection of the skin reveals no rashes NEUROLOGIC: Alert and oriented x 4. Strength and sensation to light touch were grossly intact x 4. Medications Administered Discontinued Medications Generic Name Dose Route Start Last Admin Trade Name Freq PRN Reason Stop Dose Admin Acetaminophen 975 mg 10/12/23 00:57 10/12/23 01:14 Acetaminophen 325 Mg Tablet PO 10/12/23 00:58 975 mg ONCE ONE Administration Medical Decision Making Medical Decision Making [facility] Narrative: 52-year-old female with history and clinical presentation, DDX: Post viral symptoms, active viral infection, no concern for pneumonia or strep pharyngitis at this time. I reviewed all investigations and viral testing is negative for COVID- 19/influenza. Chest x-ray does not demonstrate an infiltrate or venous congestion and otherwise my interpretation is in agreement radiology's impression. My interpretation is patient is recovering from viral infection as she states that symptoms started early last week. Differential Diagnosis Differential Diagnoses: The differential diagnosis associated with the presentation includes Please see the discussion above Admission/Observation Consideration of admission/observation: Escalation of care including admission/observation considered Please see the discussion above Lab Data MDM Lab Attestation statement: I reviewed the patient's lab results. Please see the discussion above Labs: Lab Results 10/12/23 Range/Units 00:52 COVID-19 (LEE ANN) Negative (Negative) COVID-19 Clin Com See Note Influenza Type A (RUBIN) Negative (Negative) Influenza Type B (RUBIN) Negative (Negative) Influenza A & B Note See Note Radiology Impression Discussion of test interpretation with radiology: I have reviewed the radiologist's reading. Radiologist Impression: Please see the discussion above Discharge Plan Discharge Clinical Impression: Upper respiratory infection, Viral syndrome Patient Disposition: Home, Self-Care Instructions: Upper Respiratory Infection (ED), Viral Syndrome (ED) Additional Instructions: 1. Recommend plenty of rest, stay well hydrated, Tylenol as needed for body hnikh-xwukhjqge-nzvhpucodobk greater than 100.4. Return to the ER for any worsening symptoms. Prescriptions: No Action cyclobenzaprine 10 mg tablet 10 mg PO TID PRN (Reason: muscle spasm) Qty: 14 0RF ondansetron 4 mg tablet,disintegrating 4 mg PO Q8H PRN (Reason: nausea and vomiting) Qty: 20 0RF omeprazole 40 mg capsule,delayed release(DR/EC) 40 mg PO DAILY 30 Days Qty: 30 0RF Robitussin Cough and Cold CF 2.5-5-50 mg/5 mL liquid 20 ml PO Q4H PRN (Reason: cough) Qty: 118 0RF naproxen [Naprosyn] 500 mg tablet 500 mg PO BID Qty: 20 0RF loperamide [Imodium A-D] 2 mg tablet 2 mg PO Q6H PRN (Reason: loose stool) Qty: 20 0RF hydrocodone-homatropine [Hycodan] 5-1.5 mg/5 mL (5 mL) syrup 5 ml PO Q6H PRN (Reason: cough) Qty: 60 0RF Rx Instructions: Partial Fill upon patient request. ondansetron HCl [Zofran] 4 mg tablet 4 mg PO Q8H PRN (Reason: nausea and vomiting) Qty: 10 0RF benzonatate [Tessalon Perles] 100 mg capsule 100 mg PO TID PRN (Reason: cough) 5 Days Qty: 20 0RF ibuprofen 400 mg tablet 400 mg PO Q6H PRN (Reason: pain) Qty: 20 0RF cyclobenzaprine 10 mg tablet 10 mg PO TID PRN (Reason: muscle spasm) 7 Days Qty: 21 0RF azithromycin 250 mg tablet 250 mg PO DAILY 6 Days Qty: 6 0RF Rx Instructions: start on day 2 of therapy prednisone 20 mg tablet 40 mg PO DAILY Qty: 10 0RF benzonatate 200 mg capsule 200 mg PO TID PRN (Reason: cough) Qty: 20 0RF azithromycin 250 mg tablet See Rx Instructions .ROUTE .COMPLEX Qty: 6 0RF Rx Instructions: take 500 mg today (day 1), then 250 mg for 4 days (days 2-5) benzonatate 100 mg capsule 100 mg PO TID PRN (Reason: cough) Qty: 14 0RF lfftucntiw-gjpctcwofjilj-uini [Fioricet] 50-300-40 mg capsule 1 cap PO Q4-6H PRN (Reason: headache) Qty: 14 0RF (DME) nebulizers [AeroEclipse II Nebulizer] Misc See Rx Instructions .ROUTE .MEDSUPPLY Qty: 1 0RF Rx Instructions: As directed albuterol sulfate 0.63 mg/3 mL solution for nebulization 0.63 mg inhalation QID PRN (Reason: shortness of breath or wheezing) Qty: 75 0RF albuterol sulfate 90 mcg/actuation HFA aerosol inhaler 1 inh inhalation QID PRN (Reason: shortness of breath or wheezing) Qty: 8.5 0RF prednisone 20 mg tablet 40 mg PO DAILY 5 Days Qty: 10 0RF codeine-guaifenesin [Guaifenesin AC] 10-100 mg/5 mL liquid 5 ml PO Q6H PRN (Reason: cold symptoms) Qty: 120 0RF doxycycline monohydrate 100 mg tablet 100 mg PO BID 10 Days Qty: 20 0RF cephalexin 500 mg capsule 500 mg PO BID 10 Days Qty: 20 0RF azithromycin [Zithromax Z-Matteo] 250 mg tablet See Rx Instructions .ROUTE .COMPLEX Qty: 6 0RF Rx Instructions: For 250 mg dose pack: take 500 mg today (day 1), then 250 mg for 4 days (days 2-5) prednisone 10 mg tablet 10 mg PO BID Qty: 10 0RF benzonatate 200 mg capsule 200 mg PO BID PRN (Reason: cough) 10 Days Qty: 20 0RF ibuprofen 600 mg tablet 600 mg PO Q6H PRN (Reason: fever or pain) Qty: 14 0RF metoclopramide HCl [Reglan] 10 mg tablet 10 mg PO Q6H PRN (Reason: nausea and vomiting) Qty: 15 0RF
[2023-10-12] MEDS: Acetaminophen 325 MG TABLET 975 MG PO (01:14)
[2023-10-12 01:26] LABS: IDNOW Serial# 58CA691E; Influenza A Negative (Negative); Influenza B2 Negative (Negative)
[2023-10-12 01:27] LABS: COVID-19 Test Negative (Negative); IDNOW Serial# 9DB6401D
[2023-10-12 02:05] VITALS: O2SAT 96
[2023-10-12 02:14] VITALS: BP 129/67; PULSE 61; RESP 16; TEMP 36.4; O2SAT 96
== END 2023-10-12 02:15 | disposition home or self-care (01) ==
PROVIDERS: Emergency Provider Student in an Organized Health Care Education/Training Program
DX: J06.9 Acute upper respiratory infection, unspecified (principal); B34.9 Viral infection, unspecified; R05.9 Cough, unspecified; R51.9 Headache, unspecified; Z11.52 Encounter for screening for COVID-19; Z20.822 Contact with and (suspected) exposure to COVID-19; Z79.899 Other long term (current) drug therapy
CPT/HCPCS: 71045; 87502; 87635; 99283; 99285